=== PATIENT | female | born 1935 | race Caucasian/White ===

== ENCOUNTER 2020-03-25 10:44 | Inpatient (IN) | payer MEDICARE, OTHER, SELFPAY ==
[2020-03-25] VITALS (9 sets, daily range): BP systolic 149–228; BP diastolic 62–119; PULSE 59–83; RESP 12–18; TEMP 36.5–37.1; O2SAT 91–96; BMI 22.3
--- NOTE | 2020-03-25 10:48 | CT_ITS ---
WS: [id number] CT HEAD NONCONTRAST HISTORY: fall TECHNIQUE: Contiguous axial imaging performed through the brain in 2.5 mm imaging. Bone and soft tiss ue windows. Sagittal and coronal reformats reviewed. All CT scans at [facility] use at ast one of these dose optimization techniques: automated exposure control; mA and/or kV adjustment pe r patient size (includes targeted exams where dose is matched to clinical indication); or iterative r econstruction. DLP: 838.94 mGy.cm COMPARISON: 09/14/2016 No acute intracranial hemorrhage, midline shift or mass effect. Very mild atrophy and chronic microvascular ischemic disease. Remote infarct involving a large portio n of the LEFT external capsule. Ventricles: Normal size with no hydrocephalus. No inferior displacement of cerebellar tonsils. Paranasal sinuses: Very small air-fluid level in the LEFT maxillary sinus. Mastoid air cells: Well pneumatized. Calvarium and scalp: No calvarial fracture. There is a very large acute scalp hematoma centered over the LEFT frontal bone. Acute blood products extend over a length of 6.0 cm x 1.5 cm. The underlying b one looks to be intact. Acute hematoma extends over the LEFT orbit and globe. CT/CT head wo con* [id number] IMPRESSION: 1. No acute intracranial hemorrhage or edema. 2. Large acute LEFT frontal scalp hematoma. 3. Mild atrophy and remote LEFT external capsule infarct.
--- NOTE | 2020-03-25 10:48 | CT_ITS ---
WS: [id number] CT CERVICAL SPINE HISTORY: fall TECHNIQUE: Contiguous 2.5 mm axial imaging performed through the entire cervical spine. Sagittal and coronal reformats also performed. All CT scans at [facility] use at least one of these do se optimization techniques: automated exposure control; mA and/or kV adjustment per patient size (inc ludes targeted exams where dose is matched to clinical indication); or iterative reconstruction. DLP: 375.27 mGy.cm COMPARISON: None available. Straightening and reversal the normal cervical lordosis centered at C5-6. C4 anterolisthesis by 3 mm. Severe disc space narrowing at C5-6 and C6-7 with endplate osteophytes. Craniocervical junction is n ormally aligned. C1 and C2 are normally aligned. No acute fractures are identified. Unfused ring of C1 posteriorly normal variant. C2-C3: Central osteophyte without stenosis. C3-C4: Bilateral facet joint arthritis. Mild LEFT foraminal narrowing. C4-C5: Diffuse osteophytic ridging and facet arthritis. Mild central and bilateral foraminal narrowin g. C5-C6: Diffuse osteophytic ridging with encroachment upon the ventral thecal sac. Moderate central an d mild bilateral foraminal narrowing. C6-C7: Diffuse osteophytic ridging with mild central and bilateral foraminal narrowing. C7-T1: Normal. Soft tissues are normal. Lung apices are clear. CT/CT cervical spin wo con* [id number] IMPRESSION: 1. No acute cervical spine fracture. 2. Multilevel stenoses and facet joint arthritis. Most significant stenosis at C5-6 and C6-7.
--- NOTE | 2020-03-25 10:48 | XR_ITS ---
WS: [id number] XR hip LT 2-3V wo/w pel* [id number] REASON FOR EXAM: fall FINDINGS: Complete transverse subcapital fracture. There may be some small additional bony fragments at the inf erior margin of the fracture. No other associated pelvic fracture identified. XR/XR hip LT 2-3V wo/w pel* [id number] IMPRESSION: Proximal left femur fracture as above.
--- NOTE | 2020-03-25 10:48 | XR_ITS ---
WS: [id number] PORTABLE CHEST HISTORY: fall COMPARISON: 09/20/2016 Diffuse haziness and interstitial thickening over both lungs. Increasing consolidation adjacent to th e LEFT heart. Increasing opacification at the RIGHT diaphragm. Small RIGHT pleural effusion. Cardiac size: Mildly enlarged cardiac silhouette. Mediastinum/Aorta: Mild atherosclerosis aorta. Mediastinum is prominent but this is probably due to s upine positioning. Diffuse osteopenia. No fractures are identified radiographically. XR/XR chest 1V portable [id number] IMPRESSION: 1. Increasing consolidation at the lingula. Pneumonia versus atelectasis. 2. Atelectasis at the RIGHT lung base and probable small effusion. 3. Suspect mild interstitial edema.
--- NOTE | 2020-03-25 11:02 | ED_ITS ---
HPI - Head Injury General: Chief complaint: Head Injury Stated complaint: FALL, HEAD AND HIP INJURY Time Seen by Provider: 03/25/20 10:45 Source: patient and EMS Mode of arrival: EMS Limitations: no limitations History of Present Illness: HPI Narrative: 84-year-old female who is here by EMS after a fall. Patient states that she had tripped over her own feet and fell onto her left side. She has severe left hip pain and was unable to stand. She also struck her head and has a hematoma to her left head. She has mild neck pain. She denies pain elsewhere. She states her pain is sharp in nature and rates it a 8 out of 10. Is worse with any movement and improved with rest. Associated symptoms: Deny nausea, neck pain or vomiting Review of Systems Const: Denies: fever(s), chills, body aches or change in appetite Eyes: Denies: blurry vision or eye discomfort ENMT: Denies: throat pain or dental pain Card: Denies: chest pain Resp: Denies: dyspnea GI: Denies: abdominal pain, nausea, vomiting or diarrhea : Denies: dysuria Musc: Reports: joint pain; Denies: neck pain or back pain Skin/Breast: Denies: rash Neuro: Denies: headache(s) Psych: Denies: depression Karan/Lymph: Denies: easy bruising All/Imm: Denies: urticaria PFSH ED PFSH: Medical History (Updated 01/14/20 @ 13:10 by Noah Metcalf MD) Anticoagulant long-term use Atrial fibrillation CKD (chronic kidney disease) stage 1, GFR 90 ml/min or greater CVA (cerebral vascular accident) HTN (hypertension) Hyperlipidemia Family History Father CAD (coronary artery disease) Sister CAD (coronary artery disease) Diabetes Brother Diabetes Other Hypertension Social History Smoking and tobacco status: never smoked Physical Exam Const: COMMON NORMALS: no acute distress, patient oriented x3 and healthy appearing HENMT: COMMON NORMALS: normocephalic HEAD & SCALP: normocephalic OTHER: Hematoma to left forehead with a very small puncture wound Eye: COMMON NORMALS: Equal, round and reactive pupils present and EOMs intact bilaterally PUPIL: Yes Equal, round and reactive pupils present Neck/C-Spine: COMMON NORMALS: full ROM and supple Chest: COMMONS NORMALS: normal inspection of the chest and normal palpation of entire chest wall Resp: COMMON NORMALS: normal respiratory effort, No retractions, No use of accessory muscles and clear to auscultation bilaterally AUSCULTATION: clear to auscultation bilaterally Cardio: COMMON NORMALS: regular rate, regular rhythm and No murmurs present (Cardio) RATE: regular rate RHYTHM: regular rhythm GI: COMMON NORMALS: Normal to inspection, nondistended, normoactive bowel sounds present, Soft to palpation, non-tender and no masses PALPATION: Yes Soft to palpation Extremity: COMMON NORMALS: normal to inspection NARRATIVE EXTREMITY EXAM: tenderness over the left hip pain with any rom, distal pulses intact Neuro: COMMON NORMALS: patient oriented x3, moves all extremities and no focal motor deficits Psych: COMMON NORMALS: mental status grossly normal, Normal thought process present and cooperative THOUGHT PROCESS: Normal thought process present Skin: COMMON NORMALS: no rashes or lesions noted and no wounds GENERAL SKIN EXAM: no rashes or lesions noted Course Vital Signs: Vital signs: Vital Signs Temperature 97.7 F 03/25/20 10:56 Pulse Rate 59 L 03/25/20 13:00 Respiratory Rate 16 03/25/20 10:56 Blood Pressure 200/98 03/25/20 13:22 Pulse Oximetry 93 03/25/20 13:00 MDM - Head Injury MDM Narrative: Medical decision making narrative: Patient presents with a left hip fracture from a fall. Lab work here is normal. She does have a rather large hematoma to the left side of her head. Head CT here is otherwise negative along with C-spine. Spoke to hospitalist will admit I also spoke to the orthopedic who is consulted. Patient has been stable while here. Lab Data: Labs: Lab Results 03/25/20 03/25/20 03/25/20 Range/Units 10:35 10:35 10:35 WBC 11.1 H (4.0-10.0) 10^3/ uL RBC 4.22 (4.1-5.3) 10^6/u L Hgb 12.6 (11.5-15.3) g/dL Hct 38.7 (37.0-47.0) % MCV 91.7 (81-99) fL MCH 29.9 (28.0-34.0) pg MCHC 32.6 (30.0-36.0) g/dL RDW 12.7 (12.1-15.1) % Plt Count 270 (130-400) 10^3/c mm MPV 12.3 H (7.4-10.4) fL Neut % (Auto) 52.6 % Lymph % (Auto) 36.2 % Lipscomb % (Auto) 6.7 % Eos % (Auto) 3.4 % Baso % (Auto) 0.8 % Neut # (Auto) 5.85 (1.8-7.7) 10^3/u L Lymph # (Auto) 4.0 (0.8-4.8) 10^3/u L Lipscomb # (Auto) 0.8 (0.2-0.9) 10^3/u L Eos # (Auto) 0.4 (0.0-0.8) 10^3/u L Baso # (Auto) 0.1 (0.0-0.1) 10^3/u L Nucleated RBC % (a uto) 0 % Nucleated RBCs # 0.0 /100WBC PT 12.50 (12.1-14.9) SECO NDS INR 0.92 (0.8-1.2) Sodium 138 (136-145) mmol/L Potassium 4.0 (3.5-5.1) mmol/L Chloride 102 (98-107) mmol/L Carbon Dioxide 23 (22-29) mmol/L Anion Gap 17.0 (5-19) BUN 38 H (8-23) mg/dL Creatinine 1.4 H (0.5-0.9) mg/dL GFR Calculation Not Reportable Glucose 117 H (65-115) mg/dL Calculated Osmolal ity 296 H (285-295) mOsm/k g Calcium 9.5 (8.5-10.5) mg/dL Total Bilirubin 0.3 (0.15-1.2) mg/dL AST 28 (0-32) U/L ALT 15 (0-33) U/L Alkaline Phosphata se 70 (35-105) IU/L Total Protein 7.6 (6.6-8.7) g/dL Albumin 4.2 (3.5-5.2) g/dL Globulin 3.4 (1.3-4.6) g/dL Imaging Data^: Xray Ortho: Radiologist's impression: [address] [address] XRay Report Signed Patient: Rebecca Duke Unit #: [id number] : 1935 Age/Sex: 84 / F ADM Date: 03/25/20 Loc: ER Room/Bed: Attending Dr: Ordering Provider/Ordering MD: Rocky Ramirez MD Date of Service: 03/25/20 Procedure(s): XR hip LT 2-3V wo/w pel* [id number] Accession Number(s): [id number] Report Number: [id number] WS: [id number] XR hip LT 2-3V wo/w pel* [id number] REASON FOR EXAM: fall FINDINGS: Complete transverse subcapital fracture. There may be some small additional bony fragments at the inferior margin of the fracture. No other associated pelvic fracture identified. XR/XR hip LT 2-3V wo/w pel* [id number] IMPRESSION: Proximal left femur fracture as above. CXR: Radiologist's impression: [address] [address] XRay Report Signed Patient: Rebecca Duke Unit #: [id number] : 1935 Age/Sex: 84 / F ADM Date: 03/25/20 Loc: ER Room/Bed: Attending Dr: Ordering Provider/Ordering MD: Rocky Ramirez MD Date of Service: 03/25/20 Procedure(s): XR chest 1V portable [id number] Accession Number(s): [id number] Report Number: [id number] WS: [id number] PORTABLE CHEST HISTORY: fall COMPARISON: 09/20/2016 Diffuse haziness and interstitial thickening over both lungs. Increasing consolidation adjacent to the LEFT heart. Increasing opacification at the RIGHT diaphragm. Small RIGHT pleural effusion. Cardiac size: Mildly enlarged cardiac silhouette. Mediastinum/Aorta: Mild atherosclerosis aorta. Mediastinum is prominent but this is probably due to supine positioning. Diffuse osteopenia. No fractures are identified radiographically. XR/XR chest 1V portable [id number] IMPRESSION: 1. Increasing consolidation at the lingula. Pneumonia versus atelectasis. 2. Atelectasis at the RIGHT lung base and probable small effusion. 3. Suspect mild interstitial edema. CT Head: Radiologist's impression: [address] [place] [address] CT Scan Report Signed Patient: Rebecca Duke Unit #: [id number] : 1935 Age/Sex: 84 / F ADM Date: 03/25/20 Loc: ER Room/Bed: Attending Dr: Ordering Provider/Ordering MD: Rocky Ramirez MD Date of Service: 03/25/20 Procedure(s): CT head wo con* [id number] Accession Number(s): [id number] Report Number: [id number] WS: [id number] CT HEAD NONCONTRAST HISTORY: fall TECHNIQUE: Contiguous axial imaging performed through the brain in 2.5 mm imaging. Bone and soft tissue windows. Sagittal and coronal reformats reviewed. All CT scans at [facility] use at least one of these dose optimization techniques: automated exposure control; mA and/or kV adjustment per patient size (includes targeted exams where dose is matched to clinical indication); or iterative reconstruction. DLP: 838.94 mGy.cm COMPARISON: 09/14/2016 No acute intracranial hemorrhage, midline shift or mass effect. Very mild atrophy and chronic microvascular ischemic disease. Remote infarct involving a large portion of the LEFT external capsule. Ventricles: Normal size with no hydrocephalus. No inferior displacement of cerebellar tonsils. Paranasal sinuses: Very small air-fluid level in the LEFT maxillary sinus. Mastoid air cells: Well pneumatized. Calvarium and scalp: No calvarial fracture. There is a very large acute scalp hematoma centered over the LEFT frontal bone. Acute blood products extend over a length of 6.0 cm x 1.5 cm. The underlying bone looks to be intact. Acute hematoma extends over the LEFT orbit and globe. CT/CT head wo con* [id number] IMPRESSION: 1. No acute intracranial hemorrhage or edema. 2. Large acute LEFT frontal scalp hematoma. 3. Mild atrophy and remote LEFT external capsule infarct. Other CT: Radiologist's impression: te: 03/25/2020 1:41:08 PM Order #: [id number] Report Status: Finalized Reason: fall [facility] [address] [place] [address] CT Scan Report Signed Patient: Rebecca Duke Unit #: [id number] : 1935 Age/Sex: 84 / F ADM Date: 03/25/20 Loc: ER Room/Bed: Attending Dr: Ordering Provider/Ordering MD: Rocky Ramirez MD Date of Service: 03/25/20 Procedure(s): CT cervical spin wo con* [id number] Accession Number(s): [id number] Report Number: [id number] WS: [id number] CT CERVICAL SPINE HISTORY: fall TECHNIQUE: Contiguous 2.5 mm axial imaging performed through the entire cervical spine. Sagittal and coronal reformats also performed. All CT scans at [facility] use at least one of these dose optimization techniques: automated exposure control; mA and/or kV adjustment per patient size (includes targeted exams where dose is matched to clinical indication); or iterative reconstruction. DLP: 375.27 mGy.cm COMPARISON: None available. Straightening and reversal the normal cervical lordosis centered at C5-6. C4 anterolisthesis by 3 mm. Severe disc space narrowing at C5-6 and C6-7 with endplate osteophytes. Craniocervical junction is normally aligned. C1 and C2 are normally aligned. No acute fractures are identified. Unfused ring of C1 posteriorly normal variant. C2-C3: Central osteophyte without stenosis. C3-C4: Bilateral facet joint arthritis. Mild LEFT foraminal narrowing. C4-C5: Diffuse osteophytic ridging and facet arthritis. Mild central and bilateral foraminal narrowing. C5-C6: Diffuse osteophytic ridging with encroachment upon the ventral thecal sac. Moderate central and mild bilateral foraminal narrowing. C6-C7: Diffuse osteophytic ridging with mild central and bilateral foraminal narrowing. C7-T1: Normal. Soft tissues are normal. Lung apices are clear. CT/CT cervical spin wo con* [id number] IMPRESSION: 1. No acute cervical spine fracture. 2. Multilevel stenoses and facet joint arthritis. Most significant stenosis at C5-6 and C6-7. Discharge Plan Discharge Patient Disposition: Admitted As Inpatient Condition: Stable Referrals: Jalyn Salas MD [Primary Care Provider] - Coding Level of Care Code ED Pupil Personnel Services Director for Chg Fwd Exam Comprehensive
[2020-03-25 11:08] LABS: Basophils # 0.1 10^3/uL (0.0-0.1); Basophils % 0.8 %; Eosinophils # 0.4 10^3/uL (0.0-0.8); Eosinophils % 3.4 %; Hematocrit 38.7 % (37.0-47.0); Hemoglobin 12.6 g/dL (11.5-15.3); Lymphocytes % 36.2 %; Mean Corpuscular HGB Conc 32.6 g/dL (30.0-36.0); Mean Corpuscular Hemoglobin 29.9 pg (28.0-34.0); Mean Corpuscular Volume 91.7 fL (81-99); Mean Platelet Volume 12.3 fL (7.4-10.4); Monocytes # 0.8 10^3/uL (0.2-0.9); Monocytes % 6.7 %; Neutrophils # 5.85 10^3/uL (1.8-7.7); Neutrophils % 52.6 %; Nucleated Red Blood Cells % 0 %; Platelet Count 270 10^3/cmm (130-400); Red Blood Count 4.22 10^6/uL (4.1-5.3); Red Cell Distribution Width 12.7 % (12.1-15.1); White Blood Count 11.1 10^3/uL (4.0-10.0)
--- NOTE | 2020-03-25 11:20 | PC.NURSE ---
portable xray at bedside
[2020-03-25 11:22] LABS: Alanine Aminotransferase 15 U/L (0-33); Albumin Level 4.2 g/dL (3.5-5.2); Alkaline Phosphatase 70 IU/L (35-105); Blood Urea Nitrogen 38 mg/dL (8-23); Calcium 9.5 mg/dL (8.5-10.5); Carbon Dioxide 23 mmol/L (22-29); Chloride 102 mmol/L (98-107); Globulin 3.4 g/dL (1.3-4.6); Glucose 117 mg/dL (65-115); Osmolality Calculated 296 mOsm/kg (285-295); Sodium 138 mmol/L (136-145); Total Bilirubin 0.3 mg/dL (0.15-1.2); Total Protein 7.6 g/dL (6.6-8.7)
[2020-03-25 11:26] LABS: Aspartate Amino Transferase 28 U/L (0-32)
[2020-03-25] MEDS: morphine 4 mg/mL SDV 1 mL IVP (11:45)
[2020-03-25 12:04] LABS: INR 0.92 (0.8-1.2)
[2020-03-25] MEDS: ondansetron 2 mg/ML SDV 2 mL 4 MG IVP ×2 (15:22→17:04)
[2020-03-25] MEDS: hyDRALAzine 20 mg/mL INJ 1 mL 10 MG IVP (15:24)
--- NOTE | 2020-03-25 16:30 | PM.HP ---
Providers/Chief Complaint Admitting Physician: Omi Cheung MD Primary Care Provider: Jalyn Salas MD Chief Complaint: FALL, HEAD AND HIP INJURY History of Present Illness Rebecca Duke is a 84 year old female with past medical history of A. fib, hypertension, CVA, CKD, came in with chief complaint of left hip pain after a fall, post fall, she is complaining of severe left hip pain, unable to bear weight, she is also complaining of pain on the left forehead and mild neck. She has denied any, chest pain nausea vomiting, shortness of breath, fever,cough. History taking has been difficult as the patient is in pain right now. She was worked up in the ED for fall. Dr. Kearney has been consulted and she is due for orthopedic intervention. Review of Systems General: Reports: 10 or more systems reviewed and unremarkable except in HPI and below Const: Denies: fever(s), chills, body aches, change in appetite or diaphoresis Card: Denies: palpitations, edema, swelling of feet/ankles, dyspnea on exertion, orthopnea or leg pain with exertion Resp: Denies: dyspnea, productive cough, wheezing or pain on inspiration GI: Denies: abdominal pain, nausea, vomiting, diarrhea or constipation Medications/Allergies Home Medications Medication Instructions Recorded Confirmed Last Taken Type amiodarone 200 mg tablet 100 mg PO DAILY tab 12/18/19 03/25/20 03/25/20 History cholecalciferol (vitamin D3) 125 125 mcg PO DAILY 12/18/19 03/25/20 03/25/20 History mcg (5,000 unit) capsule levothyroxine 50 mcg tablet 50 mcg PO DAILY 12/18/19 03/25/20 03/25/20 History metoprolol tartrate 50 mg tablet 50 mg PO BID 12/18/19 03/25/20 03/25/20 History aspirin 325 mg PO DAILY 03/25/20 03/25/20 03/25/20 History lisinopril 20 mg PO DAILY 03/25/20 03/25/20 03/25/20 History Allergies Allergy/AdvReac Type Severity Reaction Status Date / Time Nitrofuran Analogues Allergy Unknown Unknown Unverified 12/18/19 10:41 PFSH Acute PFSH: Medical History Anticoagulant long-term use Atrial fibrillation CKD (chronic kidney disease) stage 1, GFR 90 ml/min or greater CVA (cerebral vascular accident) HTN (hypertension) Hyperlipidemia Family History Father CAD (coronary artery disease) Sister CAD (coronary artery disease) Diabetes Brother Diabetes Other Hypertension Social History Smoking and tobacco status: never smoked Vitals/I&O/Wt Last Vital Signs Temp 97.7 F 03/25/20 10:56 Pulse 73 03/25/20 16:01 Resp 16 03/25/20 15:20 BP 150/76 03/25/20 16:01 Pulse Ox 96 03/25/20 16:01 Weight last 48 hrs Weight 55.338 kg Physical Exam Const: COMMON NORMALS: patient oriented x3 Eye: OTHER: Left eyelid is swollen and red with difficulty opening the eyelids. Dried blood is noted at both nostril. Chest: COMMONS NORMALS: normal inspection of the chest and normal palpation of entire chest wall CHEST: Yes Symmetrical chest wall rise Resp: COMMON NORMALS: normal respiratory effort, No retractions, No use of accessory muscles and clear to auscultation bilaterally EFFORT & INSPECTION: Yes symmetric chest movement AUSCULTATION: clear to auscultation bilaterally Cardio: COMMON NORMALS: regular rate, regular rhythm, S1 normal heart sound present, S2 normal heart sound present, No gallops present (Cardio), No murmurs present (Cardio), No rub (Cardio) and Peripheral pulses 2+ throughout RATE: regular rate RHYTHM: regular rhythm HEART SOUNDS: S1 normal heart sound present and S2 normal heart sound present PERIPHERAL PULSES: Peripheral pulses 2+ throughout GI: COMMON NORMALS: Normal to inspection, nondistended, normoactive bowel sounds present, Soft to palpation, non-tender, No hepatosplenomegaly present and no masses AUSCULTATION: Yes normoactive bowel sounds PALPATION: Yes Soft to palpation and Yes No hepatosplenomegaly present RECTAL EXAM: deferred Extremity: OTHER: Inability to move left lower extremity due to severe pain. Dorsalis pedis pulse 2+ bilaterally equal,No lower extremity edema.Left lower extremity range of motion limited due to pain. Neuro: COMMON NORMALS: patient oriented x3 Urinary Catheter Management^: Morales: Cath Placed During This Visit: yes Reason for Continuing Indwelling Catheter: Required Immobilization for Trauma or Surgery or Anesthesia Urinary Catheter Date of Insertion: 03/25/20 Urinary Catheter Time of Insertion: 15:15 Data : 03/25/20 10:35 03/25/20 10:35 CT Head: I personally reviewed and interpreted this imaging study as follows: My impression: No acute intracranial pathology. Age-appropriate chronic changes.Large acute LEFT frontal scalp hematoma Radiologist's impression: 1. No acute intracranial hemorrhage or edema. 2. Large acute LEFT frontal scalp hematoma. 3. Mild atrophy and remote LEFT external capsule infarct Other data: CT CERVICAL SPINE: 1. No acute cervical spine fracture. 2. Multilevel stenoses and facet joint arthritis. Most significant stenosis at C5-6 and C6-7 A&P Assessment and plan (1) Hip fracture: XR hip LT 2-3V : Complete transverse subcapital fracture.Proximal left femur fracture. Continue with pain with medication. Continue IV Zofran Due for orthopedic intervention. Appreciate orthopedic rec. Status: Acute (2) Leukocytosis: Likely secondary to dehydration. X-ray chest: No acute infiltrate. Will order, urinalysis, lactic acid. Will repeat CBC post hydration. We will continue to hold antibiotics for now. Status: Acute (3) TERESA (acute kidney injury): TERESA versus TERESA on CKD: Likely secondary to dehydration. Current serum creatinine is 1.4. Baseline is currently not known. Will monitor serum creatinine. We will continue with hydration. Avoid nephrotoxic. Status: Acute (4) HTN (hypertension): Currently blood pressure is high likely 2/2 severe pain. Will ensure appropriate pain control Will initiate home medication. Status: Acute (5) CVA (cerebral vascular accident): Continue with aspirin and statin Status: Acute (6) Atrial fibrillation: Currently rate controlled. We will continue with home dose of amiodarone 100 mg oral daily. Status: Acute (7) Hyperlipidemia: No acute intervention. Will order lipid profile. Status: Acute Additional A&P Information CODE STATUS: Full code DVT PPX: As per orthopedic surgeon. Attestations Medical Necessity Statement*: Patient needs more than 2 midnight hospital stay for hip fracture. Coding Level of Care Code Acute Senior Mechanical Technician for [facility] Fwd Exam Detailed Diagnoses Hip fracture S72.009A Leukocytosis D72.829 TERESA (acute kidney injury) N17.9 HTN (hypertension) I10 CVA (cerebral vascular accident) I63.9 Atrial fibrillation I48.91 Hyperlipidemia E78.5
[2020-03-25] MEDS: sodium chloride 0.9% 1,000 ML 75 ML IV (16:56)
[2020-03-25] MEDS: metoprolol tartrate 50 mg Tablet PO (16:56)
--- NOTE | 2020-03-25 17:09 | P.CONIM_ITS ---
Providers/Reason For Consult Consulting Physican/Specialty*: Dr. Shirley Marti - Orthopedics Reason for Consult*: Left subcapital hip fracture Requesting Physcian: Dr. Rocky Ramirez Attending Physician: Omi Cheung MD Primary Care Provider: Jalyn Salas MD History of Present Illness History of Present Illness Rebecca Duke is a 84 year old female who presented to the emergency department after a fall onto her left hip. She had complaints of severe left hip pain and inability to weight-bear weight. She also had mild neck pain as well as forehead pain. She denied any reason for her fall other than tripping over her own feet. She denied any precursor to the fall such as dizziness, shortness of breath, nausea or vomiting. She was worked up in the emergency department with regards to this and admitted to the hospitalist service. Review of Systems General: Reports: ROS unobtainable due to mental status Meds/Allergies Home Medications and Allergies Home Medications Medication Instructions Recorded Confirmed Last Taken Type amiodarone 200 mg tablet 100 mg PO DAILY tab 12/18/19 03/25/20 03/25/20 History cholecalciferol (vitamin D3) 125 125 mcg PO DAILY 12/18/19 03/25/20 03/25/20 History mcg (5,000 unit) capsule levothyroxine 50 mcg tablet 50 mcg PO DAILY 12/18/19 03/25/20 03/25/20 History metoprolol tartrate 50 mg tablet 50 mg PO BID 12/18/19 03/25/20 03/25/20 History aspirin 325 mg PO DAILY 03/25/20 03/25/20 03/25/20 History lisinopril 20 mg PO DAILY 03/25/20 03/25/20 03/25/20 History Allergies Allergy/AdvReac Type Severity Reaction Status Date / Time Nitrofuran Analogues Allergy Unknown Unknown Verified 03/26/20 13:05 Current Medications Current Medications Generic Name Dose Route Start Last Admin Trade Name Freq PRN Reason Stop Dose Admin Sodium Chloride 1,000 mls @ 75 mls/hr 03/25/20 16:30 03/25/20 16:56 Sodium Chloride 0.9% IV 75 mls/hr .[id number] BLAKE Administration Metoprolol Tartrate 50 mg 03/25/20 18:00 03/25/20 16:56 Lopressor PO 50 mg BID BLAKE Administration Ondansetron HCl 4 mg 03/25/20 16:29 03/25/20 17:04 Zofran IVP 4 mg Q8H PRN Administration vomiting, or N/V if npo PFSH Acute PFSH: Medical History Anticoagulant long-term use Atrial fibrillation CKD (chronic kidney disease) stage 1, GFR 90 ml/min or greater CVA (cerebral vascular accident) HTN (hypertension) Hyperlipidemia Family History Father CAD (coronary artery disease) Sister CAD (coronary artery disease) Diabetes Brother Diabetes Other Hypertension Social History Smoking and tobacco status: never smoked Vitals/I&O/Wt Last Vital Signs Temp 97.9 F 03/25/20 16:29 Pulse 83 03/25/20 16:29 Resp 18 03/25/20 16:29 BP 198/62 03/25/20 16:29 Pulse Ox 91 03/25/20 16:29 Weight last 48 hrs Weight 122 lb Physical Exam 2 Const: COMMON NORMALS: no acute distress, average body habitus, patient oriented x3 and alert GENERAL APPEARANCE: cooperative and comfortable ORIENTATION/CONSCIOUSNESS: Yes awake HENMT: COMMON NORMALS: normocephalic; head/scalp not atraumatic HEAD & SCALP: normocephalic; not atraumatic FACE & SINUS: other (Patient has ecchymosis about the left eye secondary to her fall.) Chest: COMMONS NORMALS: normal inspection of the chest Resp: COMMON NORMALS: normal respiratory effort EFFORT & INSPECTION: Yes able to speak in complete sentences and Yes symmetric chest movement Extremity: LEFT LOWER EXTREMITY: Yes hip joint Left hip: Yes inspection (There is no significant swelling or bruising.), Yes palpation (There is tenderness to palpation.), Yes ROM (Not evaluated secondary to fracture.) and Yes neurovascular exam (Intact.) Neuro: COMMON NORMALS: patient oriented x3 SENSORIUM/ORIENTATION: Yes alert Psych: COMMON NORMALS: mental status grossly normal APPEARANCE: Yes grossly normal ATTITUDE: Yes calm and Yes engaged ATTENTION/CONCENTRATION: Yes attention grossly intact Skin: COMMON NORMALS: no rashes or lesions noted GENERAL SKIN EXAM: no rashes or lesions noted Urinary Catheter Management^: Morales: Cath Placed During This Visit: yes Reason for Continuing Indwelling Catheter: Required Immobilization for Trauma or Surgery or Anesthesia Urinary Catheter Date of Insertion: 03/25/20 Urinary Catheter Time of Insertion: 15:15 Data Imaging^: Xray Ortho: I personally reviewed and interpreted this imaging study as follows: My impression: X-rays are reviewed from the emergency department. There are 2 views of the patient's left hip. There is a left displaced subcapital hip fracture. A&P Assessment and plan (1) Subcapital fracture of left hip: I have discussed the patient with the emergency room physician as well as the floor nurse. I have also reviewed the x-rays. At this time, the patient will require operative intervention. Laboratory studies are still pending, and the patient has current elevated blood pressure which is being addressed by the hospitalist team. The patient will require a bipolar hip arthroplasty. Once her blood pressure is stabilized, I will see her tomorrow and discuss surgical options with her. Currently, she is scheduled for 1300. She will have a repeat INR in the morning as she is on Coumadin. At the time of her admission labs, there was no evidence for need for reversal. Status: Acute Qualifiers: Encounter type: initial encounter Fracture type: closed Qualified Code(s): S72.012A - Unspecified intracapsular fracture of left femur, initial encounter for closed fracture Consult Attestations Medical Necessity Statement: Patient requires inpatient hospitalization for evaluation and surgical treatment of hip fracture. Coding Level of Care Code Acute Maintenance Assistant for [facility] Diagnoses Subcapital fracture of left hip S72.012A Encounter type: initial encounter Fracture type: closed
[2020-03-25 19:55] LABS: Urine Appearance Clear (CLEAR); Urine Color Yellow (Yellow)
[2020-03-25 19:56] LABS: Add Urine Microscopic? YES; Bilirubin Urine Neg (Negative); Blood Urine Neg (Negative); Glucose Urine UA Norm (Normal); Ketones Urine 1+ (Negative); Leukocyte Esterase Urine Negative (Negative); Nitrate Urine Positive (Negative); Protein Urine 1+ (Negative); Specific Gravity, Urine 1.015 (1.005-1.030); Urobilinogen Urine Norm (Negative); pH Urine 5 (5-7)
[2020-03-25 20:09] LABS: Add Urine Culture? Yes; Bacteria Urine 4+ /hpf; RBC Urine 0-4 /hpf (0-2); Squamous Epithelial Cell Urine 0-4 /hpf (0-5); WBC Urine 15-25 /hpf (0-5)
[2020-03-25] MEDS: hyDRALAzine 50 mg Tablet PO (21:35)
[2020-03-25] MEDS: cefTRIAXone 1,000 MG in sodium chloride 0.9% (plus) 50 ML 100 MG IV (21:36)
[2020-03-25] MEDS: HYDROcodone-acetaminophen 5-325 mg Tablet 1 TAB PO (23:26)
[2020-03-26] VITALS (20 sets, daily range): BP systolic 135–192; BP diastolic 59–76; PULSE 56–83; RESP 12–20; TEMP 36–37.2; O2SAT 91–100
[2020-03-26] MEDS: morphine 4 mg/mL SDV 1 mL 2 MG IVP ×2 (00:34→07:48)
[2020-03-26 02:38] LABS: Basophils % 0.2 %; Eosinophils % 0.1 %; Hematocrit 33.2 % (37.0-47.0); Hemoglobin 10.6 g/dL (11.5-15.3); Lymphocytes # 1.3 10^3/uL (0.8-4.8); Mean Corpuscular HGB Conc 31.9 g/dL (30.0-36.0); Mean Corpuscular Hemoglobin 29.7 pg (28.0-34.0); Mean Platelet Volume 11.9 fL (7.4-10.4); Monocytes # 0.7 10^3/uL (0.2-0.9); Neutrophils # 9.36 10^3/uL (1.8-7.7); Neutrophils % 82.3 %; Nucleated Red Blood Cells % 0 %; Platelet Count 191 10^3/cmm (130-400); Red Blood Count 3.57 10^6/uL (4.1-5.3); Red Cell Distribution Width 12.8 % (12.1-15.1); White Blood Count 11.4 10^3/uL (4.0-10.0)
[2020-03-26 02:46] LABS: Anion Gap 17.1 (5-19); Blood Urea Nitrogen 35 mg/dL (8-23); Calcium 9.2 mg/dL (8.5-10.5); Carbon Dioxide 23 mmol/L (22-29); Chloride 101 mmol/L (98-107); Glucose 139 mg/dL (65-115); Magnesium 1.3 mg/dL (1.7-2.3); Osmolality Calculated 294 mOsm/kg (285-295); Potassium 4.1 mmol/L (3.5-5.1); Sodium 137 mmol/L (136-145)
[2020-03-26 02:49] LABS: INR 1.07 (0.8-1.2); Partial Thromboplastin Time 24.6 SECONDS (23.9-36.7)
[2020-03-26 02:57] LABS: Thyroid Stimulating Hormone 1.74 uIU/mL (0.27-4.20)
[2020-03-26] MEDS: hyDRALAzine 50 mg Tablet PO ×2 (04:16→20:04)
[2020-03-26] MEDS: sodium chloride 0.9% 1,000 ML 75 ML IV ×2 (05:13→18:45)
[2020-03-26] MEDS: HYDROcodone-acetaminophen 5-325 mg Tablet 1 TAB PO ×2 (09:29→18:05)
[2020-03-26] MEDS: levothyroxine 50 mcg Tablet PO (09:30)
[2020-03-26] MEDS: metoprolol tartrate 50 mg Tablet PO ×2 (09:30→18:01)
--- NOTE | 2020-03-26 11:15 | PC.CHAP ---
Pastoral Care Encounter/Spiritual Assessment Type of Contact [] Declined cullet trucker visit [] Patient/Family/Request visit [] Outpatient visit [] Follow-up visit [] Physician referral [] Code/Alert [x] Routine visit [] Staff referral [] Actively dying [] Patient sleeping [] Family support [] [] Out of room [] Palliative care [] [x] Receiving care in room [] Pre-surgical visit [] Trauma [] Long length of stay [] ICU visit [] Other: Relational/Emotional Strength [] Patient feels connected with others/family/visitors/staff [x] Distress [] Loneliness/isolation [] Abandonment Spirituality of Patient [] Person of Avelina [] Attends Methodist of their Avelina [] Believes in Prayer [] Reads Bible or Amish materials [] There are Spiritual issues to be addressed Senior Program Planner Interventions [] Prayer [] Active listening [] Non-anxious presence [] Spiritual/emotional support [] Crisis/trauma care [] Spiritual counseling [] Bereavement support [] Provided bereavement packet [] Provided Bible/devotional materials [] Provided toy/stuffed animal, coloring book to patient or family member [] Provided Communion [] Anointing/[place] [] Salvation [] Completed spiritual assessment [] Other: Impact on Illness or Injury [] Angry [x] Fearful [] Anxious [] Often cries [] Exhaustion [x] Unable to work [] Unable to attend taoist [] Unable to walk/stand [] Unable to read [x] Unable to drive [] Unable to eat/drink [] Unable to sleep [] Unable to be with family [] Patient intubated [] Other: Summary going into surgery on hip this afternoon, negative attitude, not sure when she will get to home Time spent with patient 10 mins
--- NOTE | 2020-03-26 12:37 | PC.NURSE ---
surgery Pt was taken down to surgery in her hospital bed.
[2020-03-26] MEDS: CELEcoxib 200 mg Capsule 400 MG PO (13:03)
--- NOTE | 2020-03-26 13:12 | ANES.PREANE2 ---
Pre-Anesthetic Assessment Pre-Anesthetic Assessment: Height/Weight: Height 1.57 m Weight 55.338 kg Temp Pulse Resp BP Pulse Ox 97.3 F L 65 18 165/71 91 03/26/20 12:57 03/26/20 12:57 03/26/20 12:57 03/26/20 12:57 03/26/20 12:57 Preop Diagnosis: Subcapital displaced hip fracture Proposed Procedure: Operation Date: 03/26/20 13:20 Proposed Procedures p Bipolar Hip Arthroscopy(Left) - Shirley Marti MD Familial anesthetic complications: None Was Beta Darlene taken within 24 hours: Yes Last intake: Intake Last Liquid Date 03/26/20 Last Liquid Time 00:00 Last Solid Date 03/25/20 Last Solid Time 15:00 Social: Social History: No alcohol and No tobacco Exam: Pre-Anes Outpt Exam: alert, oriented x 3, clear to auscultation bilaterally and regular rate & rhythm Airway: Cervical ROM: WNL MP: 3 Dentition: False Pulmonary: Pulmonary: None reported CV/HEM: CV/HEM: Afib (no longer on warfarin d/t frequent falls) and HTN Comments: echo 2017 - EF 64%, grade I diastolic dysfunction, Mild pulm HTN : : Chronic renal Insufficiency Metabolic: Metabolic: Hyperlipidemia Musc/skel: Comments: facial hematoma Neuropsych: Neuropsych: 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)) Comments: negative head CT for acute bleed Anesthetic Plan: ASA status: 3 Anesthesia: General Risk of > 500 ml blood loss (7ml/kg in children): No Meds/Allergies Current Medications: Current Medications Generic Name Dose Route Start Last Admin Trade Name Freq PRN Reason Stop Dose Admin Hydrocodone Bitart /Acetaminophen 1 tab 03/25/20 16:29 03/26/20 09:29 [place] 5-325 Mg PO 1 tab Q4H PRN Administration MODERATE TO SEVER E PAIN Amiodarone HCl 100 mg 03/26/20 09:00 03/26/20 09:32 Cordarone PO Not Given DAILY BLAKE Hydralazine HCl 50 mg 03/25/20 20:00 03/26/20 12:38 Apresoline PO Not Given Q8H BLAKE Sodium Chloride 1,000 mls @ 75 ml s/hr 03/25/20 16:30 03/26/20 05:13 Sodium Chloride 0.9% IV 75 mls/hr .[id number] BLAKE Administration Acetaminophen 1,000 mg in 100 m ls @ 400 mls/hr 03/26/20 13:02 03/26/20 13:03 Ofirmev IV 03/26/20 13:16 400 mls/hr ONCE ONE Administration Ceftriaxone Sodium 1,000 mg/ 50 mls @ 100 mls/ hr 03/25/20 20:15 03/25/20 21:36 Sodium Chloride IV 100 mls/hr Q24H BLAKE Administration Protocol Levothyroxine Sodi um 50 mcg 03/26/20 09:00 03/26/20 09:30 Synthroid PO 50 mcg DAILY BLAKE Administration Metoprolol Tartrat e 50 mg 03/25/20 18:00 03/26/20 09:30 Lopressor PO 50 mg BID BLAKE Administration Morphine Sulfate 2 mg 03/25/20 16:29 03/26/20 07:48 Morphine IVP 2 mg Q4H PRN Administration SEVERE PAIN Ondansetron HCl 4 mg 03/25/20 16:29 03/25/20 17:04 Zofran IVP 4 mg Q8H PRN Administration vomiting, or N/V if npo Vitamin D 5,000 unit 03/26/20 09:00 03/26/20 09:32 Vitamin D3 PO Not Given DAILY BLAKE PFSH Anesthesia PFSH: Medical History Anticoagulant long-term use Atrial fibrillation CKD (chronic kidney disease) stage 1, GFR 90 ml/min or greater CVA (cerebral vascular accident) HTN (hypertension) Hyperlipidemia Family History Father CAD (coronary artery disease) Sister CAD (coronary artery disease) Diabetes Brother Diabetes Other Hypertension Social History Smoking and tobacco status: never smoked Data Anesthesia CBC & Chem 7: 03/26/20 02:10 03/26/20 02:10 Other Labs: Laboratory Results - last 48 hr 03/25/20 03/25/20 03/25/20 10:35 10:35 10:35 WBC 11.1 H RBC 4.22 Hgb 12.6 Hct 38.7 MCV 91.7 MCH 29.9 MCHC 32.6 RDW 12.7 Plt Count 270 MPV 12.3 H Neut % (Auto) 52.6 Lymph % (Auto) 36.2 Sunflower % (Auto) 6.7 Eos % (Auto) 3.4 Baso % (Auto) 0.8 Neut # (Auto) 5.85 Lymph # (Auto) 4.0 Sunflower # (Auto) 0.8 Eos # (Auto) 0.4 Baso # (Auto) 0.1 Nucleated RBC % (auto) 0 Nucleated RBCs # 0.0 PT 12.50 INR 0.92 APTT Sodium 138 Potassium 4.0 Chloride 102 Carbon Dioxide 23 Anion Gap 17.0 BUN 38 H Creatinine 1.4 H GFR Calculation Not Reportable Glucose 117 H Calculated Osmolality 296 H Calcium 9.5 Magnesium Total Bilirubin 0.3 AST 28 ALT 15 Alkaline Phosphatase 70 Total Protein 7.6 Albumin 4.2 Globulin 3.4 TSH Urine Color Urine Appearance Urine pH Ur Specific [place] Urine Protein Urine Glucose (UA) Urine Ketones Urine Blood Urine Nitrate Urine Bilirubin Urine Urobilinogen Ur Leukocyte Esterase Urine RBC Urine WBC Ur Squamous Epith Cells Amorphous Sediment Urine Bacteria 03/25/20 03/26/20 03/26/20 19:00 02:10 02:10 WBC 11.4 H RBC 3.57 L Hgb 10.6 L Hct 33.2 L MCV 93.0 MCH 29.7 MCHC 31.9 RDW 12.8 Plt Count 191 MPV 11.9 H Neut % (Auto) 82.3 Lymph % (Auto) 11.0 Sunflower % (Auto) 6.0 Eos % (Auto) 0.1 Baso % (Auto) 0.2 Neut # (Auto) 9.36 H Lymph # (Auto) 1.3 Sunflower # (Auto) 0.7 Eos # (Auto) 0.0 Baso # (Auto) 0.0 Nucleated RBC % (auto) 0 Nucleated RBCs # 0.0 PT 14.10 INR 1.07 APTT 24.6 Sodium Potassium Chloride Carbon Dioxide Anion Gap BUN Creatinine GFR Calculation Glucose Calculated Osmolality Calcium Magnesium Total Bilirubin AST ALT Alkaline Phosphatase Total Protein Albumin Globulin TSH Urine Color Yellow Urine Appearance Clear Urine pH 5 Ur Specific [place] 1.015 Urine Protein 1+ H Urine Glucose (UA) Norm Urine Ketones 1+ H Urine Blood Neg Urine Nitrate Positive H Urine Bilirubin Neg Urine Urobilinogen Norm Ur Leukocyte Esterase Negative Urine RBC 0-4 H Urine WBC 15-25 H Ur Squamous Epith Cells 0-4 H Amorphous Sediment Not Reportable Urine Bacteria 4+ H 03/26/20 03/26/20 02:10 02:10 WBC RBC Hgb Hct MCV MCH MCHC RDW Plt Count MPV Neut % (Auto) Lymph % (Auto) Sunflower % (Auto) Eos % (Auto) Baso % (Auto) Neut # (Auto) Lymph # (Auto) Sunflower # (Auto) Eos # (Auto) Baso # (Auto) Nucleated RBC % (auto) Nucleated RBCs # PT INR APTT Sodium 137 Potassium 4.1 Chloride 101 Carbon Dioxide 23 Anion Gap 17.1 BUN 35 H Creatinine 1.5 H GFR Calculation Not Reportable Glucose 139 H Calculated Osmolality 294 Calcium 9.2 Magnesium 1.3 L Total Bilirubin AST ALT Alkaline Phosphatase Total Protein Albumin Globulin TSH 1.74 Urine Color Urine Appearance Urine pH Ur Specific [place] [employer] Urine Protein Urine Glucose (UA) Urine Ketones Urine Blood Urine Nitrate Urine Bilirubin Urine Urobilinogen Ur Leukocyte Esterase Urine RBC Urine WBC Ur Squamous Epith Cells Amorphous Sediment Urine Bacteria Cardiac Studies: No Data to Display
[2020-03-26] MEDS: vancomycin 1,000 MG in sodium chloride 0.9% 250 ML 250 MG IV (13:39)
[2020-03-26] MEDS: vancomycin 1,000 MG SDV 1000 MG XX (14:30)
[2020-03-26] MEDS: ceFAZolin 1,000 mg SDV 1000 MG IRRIGATION (14:31)
--- NOTE | 2020-03-26 15:40 | XR_ITS ---
WS: [id number] XR pelvis 1-2V* [id number] REASON FOR EXAM: Status post left bipolar hip arthroplasty FINDINGS: Total left hip arthroplasty. The complements of the arthroplasty are properly positioned and aligned. No focal bony abnormality. XR/XR pelvis 1-2V* [id number] IMPRESSION: Properly positioned total left hip arthroplasty.
--- NOTE | 2020-03-26 15:45 | PM.OP ---
Operative Report Date of procedure: March 26, 2020 Pre-op Diagnosis: Subcapital displaced left hip fracture Post-op diagnosis: same Post-op Findings: Displaced left subcapital hip fracture Procedure Done: Bipolar hip arthroplasty utilizing the following components: The [place] Accolade II size 5 x 127 degree neck angle hip stem with a size 28 mm -4 femoral head and a 44 mm outer diameter by 28 mm inner diameter universal bipolar head component Specimens removed/disposition: Femoral head, disposed of Pathology: none sent Surgeon: Shirley Marti Healthcare Management: [facility] OR technicians Anesthesia: General (Intubated, ASA 3) Estimated blood loss (mL): 100 IV fluids (mL): 800 Urine output (mL): 300 Complications: None Condition: stable Disposition: PACU (Then return to floor for postoperative rehabilitation) Brief History: This 84-year-old woman was in her usual state of health when she fell suffering the above injury. She presented to the emergency department unable to ambulate. Upon evaluation, she was found to have a displaced left subcapital hip fracture. She was admitted to the medical service for optimization and scheduled for the above procedure. Procedure: The patient was brought to the operating theater, and after undergoing adequate general anesthesia, intubated, ASA 3, was transferred to the operating room table. The patient was placed in the full lateral position and held in place with the pegboard. Patient's left lower extremity was draped free and was subsequently prepped and further draped free. A surgical pause was performed prior to commencement of the surgical procedure. During the surgical pause, we confirmed the site and side of surgery as well as availability of equipment. Additionally, we confirmed preoperative surgical markings. X-rays are also reviewed during this time. The patient had vancomycin 1 g prophylactically preoperatively. Following the surgical pause, an incision was made centering over the greater trochanter continuing proximally and distally as necessary to allow access to the hip joint. Dissection continues through skin and soft tissue using scalpel. Incision was obtained using electrocautery. Tensor fascia [place] was identified and incised longitudinally. Sciatic nerve was identified and protected throughout the surgical procedure. A [place]arn[place] U retractor was placed with care being taken to protect the sciatic nerve during placement. The hip was internally rotated. Piriformis muscle was then identified, tagged, and subsequently incised from the posterior aspect of the hip joint. The remaining short external rotators were also incised. These were then elevated off the capsule and the capsule was entered in a T-type fashion. Each side of the capsule was then tagged. The proximal femur was brought into an appropriate position and the femoral neck osteotomy was accomplished. This was in appropriate position for placement of the prosthetic component. Femoral head was then removed from the acetabulum utilizing a corkscrew. It was subsequently measured. The appropriate size trial was chosen. This was a size 44 mm. A 45 mm was also trialed but seemed to large. Therefore size 44 was the chosen size for final implantation. Femoral wind energy mechanic was then placed and attention was directed to the proximal femur. Initially, the proximal femur was addressed with a box chisel, and this was followed by a canal finder and subsequently broaches. The hip was broached to a size 5 which was noted to fit nicely and have excellent fit and fill. Therefore this was to be the chosen component. Trial reduction was accomplished with a 44 mm universal head bipolar component and a -4 mm offset by 28 mm femoral head. With this, the above-noted stabilities were accomplished. This was felt to be appropriate and therefore trial components were removed and the hip was irrigated. Acetabulum was evaluated for any loose bodies or other soft tissues requiring resection. We then prepared for implantation. The size 5 Accolade II femoral stem with a 127 degree neck angle was impacted into position. This was placed without difficulty. Onto this was placed the construct of the 44 mm outer diameter universal head bipolar component with a 28 mm inner diameter, and the 28 mm diameter -4 mm neck offset femoral head. This was placed onto the trunnion of the femoral component. It was impacted into position and pulled upon to assure that there was no dissociation. Once again, the hip was irrigated and suctioned dry and was reduced. We then irrigated the hip further with 20 mL of Betadine mixed into 500 mL of normal saline. This was allowed to remain in the wound for approximately 3 minutes. It was then suctioned dry and irrigated with normal saline. This was suctioned dry again and closure was accomplished with 0 Vicryl in the capsular tissues followed by reattachment of the piriformis with 0 Vicryl. Additionally, the tensor was closed with 0 Vicryl in an interrupted fashion. Subcutaneous tissues were closed with 2-0 Monocryl. Skin was closed with 3-0 Monocryl. This was followed by Exofin and Steri-Strips. A sterile dressing was placed consisting of OpSite. The patient was returned the Recovery Room in satisfactory condition. There were no complications. The patient will be discharged to the floor for postoperative rehabilitation and pain management. Associated Problem List Diagnoses (1) Subcapital fracture of left hip: Qualifiers: Encounter type: initial encounter Fracture type: closed Qualified Code(s): S72.012A - Unspecified intracapsular fracture of left femur, initial encounter for closed fracture
--- NOTE | 2020-03-26 16:00 | SUR.PHASEI ---
PT AWAKES EASILY, DENIES PAIN AND NAUSEA LT HIP DRESSING D/I PT WITH GOOD RESP EFFORT ON 3LNC X RAYS DONE AT BEDISIDE DR GATES AT BEDSIDE OK WITH X RAY, FAMILY ,HAIDER EATON CALLED BY DR GATES WITH NO ANSWER , MESSAGE LEFT. REPORT CALLED TO FLOOR.
--- NOTE | 2020-03-26 17:23 | PM.PACU ---
PACU note PACU note: Patient is arousable, but easily falls back to sleep. She was placed on BiPAP and weaned to simple mask. However, she could not maintain her SPO2 on nasal cannula. An ABG showed her retaining Co2 at 77 mmhg while on mask/canula, but her baseline pCO2 is unknown. She was admitted and placed on bipap on floor with continuous pulse ox. The patient received no perioperative narcotics. Post-Anesthesia Exam: somnolent, arousable Disposition: admitted
[2020-03-26] MEDS: iron polysaccharide complex 150 mg Capsule PO (18:01)
[2020-03-26] MEDS: mupirocin oint 22 gm 1 APPLIC NASAL (18:01)
[2020-03-26] MEDS: sennosides-docusate Tablet 2 TAB PO (18:01)
[2020-03-26] MEDS: calcium carbonate 500 mg Chew Tablet 1000 MG PO (18:01)
[2020-03-26] MEDS: chlorhexidine gluconate 0.12% Btl 473 mL 30 ML MUCOUS MEM ×2 (18:01→20:11)
--- NOTE | 2020-03-26 19:44 | P.PN_ITS ---
Subjective Subjective: Interval history: When I examined her in the morning, she was alert oriented *3. Was not complaining of much pain. Status post Bipolar hip arthroplasty done today. Vitals/I&O/Wt Last Vital Signs Temp 97.5 F L 03/26/20 19:20 Pulse 62 03/26/20 19:20 Resp 17 03/26/20 19:20 BP 161/66 03/26/20 19:20 Pulse Ox 95 03/26/20 19:20 03/26/20 03/26/20 03/26/20 06:59 14:59 22:59 Intake Total 921.25 / 1041.25 110 / 110 1890 / 2000 Output Total 150 / 750 725 / 725 Balance 771.25 / 291.25 110 / 110 1165 / 1275 Weight last 48 hrs Weight 55.338 kg Physical Exam Narrative: EXAM NARRATIVE: Const COMMON NORMALS: patient oriented x3 Eye OTHER: Left eyelid is swollen and red with difficulty opening the eyelids. Dried blood is noted at both nostril. Chest COMMONS NORMALS: normal inspection of the chest and normal palpation of entire chest wall CHEST: Yes Symmetrical chest wall rise Resp COMMON NORMALS: normal respiratory effort, No retractions, No use of accessory muscles and clear to auscultation bilaterally EFFORT & INSPECTION: Yes symmetric chest movement AUSCULTATION: clear to auscultation bilaterally Cardio COMMON NORMALS: regular rate, regular rhythm, S1 normal heart sound present, S2 normal heart sound present, No gallops present (Cardio), No murmurs present (Cardio), No rub (Cardio) and Peripheral pulses 2+ throughout RATE: regular rate RHYTHM: regular rhythm HEART SOUNDS: S1 normal heart sound present and S2 normal heart sound present PERIPHERAL PULSES: Peripheral pulses 2+ throughout GI COMMON NORMALS: Normal to inspection, nondistended, normoactive bowel sounds present, Soft to palpation, non-tender, No hepatosplenomegaly present and no masses AUSCULTATION: Yes normoactive bowel sounds PALPATION: Yes Soft to palpation and Yes No hepatosplenomegaly present RECTAL EXAM: deferred Extremity OTHER: Inability to move left lower extremity due to severe pain. Dorsalis pedis pulse 2+ bilaterally equal,No lower extremity edema.Left lower extremity range of motion limited due to pain. Neuro COMMON NORMALS: patient oriented x3 Urinary Catheter Management^: Morales: Cath Placed During This Visit: yes Reason for Continuing Indwelling Catheter: Required Immobilization for Trauma or Surgery or Anesthesia Urinary Catheter Date of Insertion: 03/25/20 Urinary Catheter Time of Insertion: 15:15 Data : 03/26/20 02:10 03/26/20 02:10 A&P Assessment and plan (1) Hip fracture: XR hip LT 2-3V : Complete transverse subcapital fracture.Proximal left femur fracture. Continue with pain with medication. Continue IV Zofran. 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 Status: Acute (2) UTI (urinary tract infection): Continue ceftriaxone 1 g IV daily. Status: Acute (3) TERESA (acute kidney injury): TERESA versus TERESA on CKD: Likely secondary to dehydration. Current serum creatinine is 1.4. Baseline is currently not known. Will monitor serum creatinine. We will continue with hydration. Avoid nephrotoxic. Status: Acute (4) HTN (hypertension): Currently blood pressure is high likely 2/2 severe pain. Will ensure appropriate pain control Will initiate home medication. Status: Acute (5) CVA (cerebral vascular accident): Continue with aspirin and statin Status: Acute (6) Atrial fibrillation: Currently rate controlled. We will continue with home dose of amiodarone 100 mg oral daily. Status: Acute (7) Hyperlipidemia: No acute intervention. Will order lipid profile. Status: Acute Additional A&P Information CODE STATUS: Full code DVT PPX: As per orthopedic surgeon. Attestations Medical Necessity Statement*: Patient needs to be in hospital for management of left hip fracture. Coding Level of Care Code Acute Statistical Technician for [facility] Fwd Diagnoses Hip fracture S72.009A UTI (urinary tract infection) N39.0 TERESA (acute kidney injury) N17.9 HTN (hypertension) I10 CVA (cerebral vascular accident) I63.9 Atrial fibrillation I48.91 Hyperlipidemia E78.5
[2020-03-26] MEDS: cefTRIAXone 1,000 MG in sodium chloride 0.9% (plus) 50 ML 100 MG IV (20:06)
[2020-03-27] VITALS (8 sets, daily range): BP systolic 121–166; BP diastolic 63–71; PULSE 63–73; RESP 15–18; TEMP 36.5–36.9; O2SAT 91–98
[2020-03-27] MEDS: CELEcoxib 200 mg Capsule PO ×2 (00:59→12:53)
[2020-03-27] MEDS: vancomycin 1,000 MG in sodium chloride 0.9% 250 ML 250 MG IV (01:00)
[2020-03-27] MEDS: hyDRALAzine 50 mg Tablet PO ×3 (04:57→21:18)
[2020-03-27 05:40] LABS: Basophils % 0.1 %; Hematocrit 29.6 % (37.0-47.0); Hemoglobin 9.4 g/dL (11.5-15.3); Lymphocytes # 0.9 10^3/uL (0.8-4.8); Lymphocytes % 8.3 %; Mean Corpuscular HGB Conc 31.8 g/dL (30.0-36.0); Mean Corpuscular Hemoglobin 29.4 pg (28.0-34.0); Mean Corpuscular Volume 92.5 fL (81-99); Monocytes # 0.5 10^3/uL (0.2-0.9); Monocytes % 4.9 %; Neutrophils % 86.3 %; Nucleated Red Blood Cells % 0 %; Platelet Count 164 10^3/cmm (130-400); Red Cell Distribution Width 12.9 % (12.1-15.1); White Blood Count 10.4 10^3/uL (4.0-10.0)
[2020-03-27 05:59] LABS: Anion Gap 14.4 (5-19); Blood Urea Nitrogen 40 mg/dL (8-23); Calcium 8.5 mg/dL (8.5-10.5); Carbon Dioxide 20 mmol/L (22-29); Chloride 104 mmol/L (98-107); Glucose 139 mg/dL (65-115); Osmolality Calculated 290 mOsm/kg (285-295); Potassium 4.4 mmol/L (3.5-5.1); Sodium 134 mmol/L (136-145)
[2020-03-27] MEDS: aspirin 325 mg EC Tablet PO (08:38)
[2020-03-27] MEDS: calcium carbonate 500 mg Chew Tablet 1000 MG PO ×2 (08:38→17:17)
[2020-03-27] MEDS: HYDROcodone-acetaminophen 5-325 mg Tablet 1 TAB PO ×2 (08:38→17:19)
[2020-03-27] MEDS: metoprolol tartrate 50 mg Tablet PO ×3 (08:39→21:18)
[2020-03-27] MEDS: multivitamin therapeutic Tablet 1 TAB PO (08:39)
[2020-03-27] MEDS: sennosides-docusate Tablet 2 TAB PO ×2 (08:39→17:17)
[2020-03-27] MEDS: cholecalciferol (vitamin D3) 5,000 unit Tablet 5000 UNIT PO (08:39)
[2020-03-27] MEDS: levothyroxine 50 mcg Tablet PO (08:39)
[2020-03-27] MEDS: chlorhexidine gluconate 0.12% Btl 473 mL 30 ML MUCOUS MEM ×4 (08:40→21:35)
[2020-03-27] MEDS: amiodarone 200 mg Tablet 100 MG PO (08:40)
[2020-03-27] MEDS: mupirocin oint 22 gm 1 APPLIC NASAL ×2 (08:40→17:18)
[2020-03-27] MEDS: iron polysaccharide complex 150 mg Capsule PO ×2 (08:49→17:17)
[2020-03-27] MEDS: cholecalciferol (vitamin D3) 1,000 unit Tablet 1000 UNIT PO (08:49)
[2020-03-27] MEDS: sodium chloride 0.9% 1,000 ML 75 ML IV ×2 (08:50→21:12)
--- NOTE | 2020-03-27 13:37 | P.PN_ITS ---
Subjective Subjective: Interval history: Apart from mild pain in left leg, she has no other complain, right eye swelling has substantially decreased. Right frontal swelling is also decreased. Vitals labs reviewed reviewed Medications: Reviewed: Yes Vitals/I&O/Wt Last Vital Signs Temp 98.4 F 03/27/20 11:24 Pulse 64 03/27/20 11:24 Resp 16 03/27/20 11:24 BP 122/65 03/27/20 11:24 Pulse Ox 97 03/27/20 11:24 03/26/20 03/27/20 03/27/20 22:59 06:59 14:59 Intake Total 2040 / 2150 300 / 2450 1000 / 1000 Output Total 725 / 725 180 / 905 50 / 50 Balance 1315 / 1425 120 / 1545 950 / 950 Physical Exam Narrative: EXAM NARRATIVE: COMMON NORMALS: no acute distress, average body habitus, patient oriented x3 and alert GENERAL APPEARANCE: cooperative and comfortable ORIENTATION/CONSCIOUSNESS: Yes awake HENMT COMMON NORMALS: normocephalic; head/scalp not atraumatic HEAD & SCALP: normocephalic; not atraumatic FACE & SINUS: other (Patient has ecchymosis about the left eye secondary to her fall.) Chest COMMONS NORMALS: normal inspection of the chest Resp COMMON NORMALS: normal respiratory effort EFFORT & INSPECTION: Yes able to speak in complete sentences and Yes symmetric chest movement Extremity LEFT LOWER EXTREMITY: Yes hip joint Left hip: Yes inspection (There is no significant swelling or bruising.), Yes palpation (There is tenderness to palpation.), Yes ROM (Not evaluated secondary to fracture.) and Yes neurovascular exam (Intact.) Neuro COMMON NORMALS: patient oriented x3 SENSORIUM/ORIENTATION: Yes alert Psych COMMON NORMALS: mental status grossly normal APPEARANCE: Yes grossly normal ATTITUDE: Yes calm and Yes engaged ATTENTION/CONCENTRATION: Yes attention grossly intact Skin COMMON NORMALS: no rashes or lesions noted GENERAL SKIN EXAM: no rashes or lesions noted Urinary Catheter Management^: Morales: Cath Placed During This Visit: yes Reason for Continuing Indwelling Catheter: Accurate Measurement of Urinary Output in Critically Ill Patients Urinary Catheter Date of Insertion: 03/25/20 Urinary Catheter Time of Insertion: 15:15 Data : 03/27/20 05:21 03/27/20 05:21 Micro: Microbiology 03/25/20 19:00 Urine Culture - Preliminary Urine,Clean Catch Gram Negative Rods A&P Assessment and plan (1) TERESA (acute kidney injury): TERESA V/S TERESA ON CKD Have discontinued Celecoxib 200 mg po q12 h daily. Continue I.V Hydration Monitor Urine output. Avoid Nephrotoxic Medications. Status: Acute (2) UTI (urinary tract infection): Continue Ceftriaxone 1 gm q24 h daily Status: Acute (3) Hip fracture: XR hip LT 2-3V : Complete transverse subcapital fracture.Proximal left femur fracture. Continue with pain with medication. Continue IV Zofran. 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 Status: Acute (4) HTN (hypertension): Start Metoprolo Tartrate 50 mg q12 h daily. Continue to hold Lisinopril. Status: Acute (5) CVA (cerebral vascular accident): Continue with aspirin and statin Status: Acute (6) Atrial fibrillation: Currently rate controlled Continue Aspirin 325 mg oral daily Status: Acute Attestations Medical Necessity Statement*: Left hip fracture management. Coding Level of Care Code Acute Curriculum And Assessment Director for [facility] Diagnoses TERESA (acute kidney injury) N17.9 UTI (urinary tract infection) N39.0 Hip fracture S72.009A HTN (hypertension) I10 CVA (cerebral vascular accident) I63.9 Atrial fibrillation I48.91
[2020-03-27] MEDS: cefTRIAXone 1,000 MG in sodium chloride 0.9% (plus) 50 ML 100 MG IV (21:11)
[2020-03-27] MEDS: acetaminophen 500 mg Tablet 1000 MG PO (21:18)
--- NOTE | 2020-03-27 22:01 | P.PN_ITS ---
Subjective Subjective: Interval history: Apart from mild pain in left leg, she has no other complaints. 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 Her right eye swelling has substantially decreased. Right frontal swelling is also decreased. Vitals labs reviewed reviewed. Medications: Reviewed: Yes Vitals/I&O/Wt Last Vital Signs Temp 98.5 F 03/27/20 19:40 Pulse 64 03/27/20 19:40 Resp 17 03/27/20 19:40 BP 121/66 03/27/20 19:40 Pulse Ox 91 03/27/20 19:40 03/27/20 03/27/20 03/27/20 06:59 14:59 22:59 Intake Total 300 / 2450 1120 / 1120 1167.5 / 2287.5 Output Total 180 / 905 50 / 50 200 / 250 Balance 120 / 1545 1070 / 1070 967.5 / 2037.5 Physical Exam Const: COMMON NORMALS: no acute distress, average body habitus, patient oriented x3 and alert GENERAL APPEARANCE: cooperative and comfortable ORIENTATION/CONSCIOUSNESS: Yes awake HENMT: COMMON NORMALS: normocephalic; head/scalp not atraumatic HEAD & SCALP: normocephalic; not atraumatic FACE & SINUS: other (Patient has ecchymosis about the left eye secondary to her fall.) Chest: COMMONS NORMALS: normal inspection of the chest Resp: COMMON NORMALS: normal respiratory effort EFFORT & INSPECTION: Yes able to speak in complete sentences and Yes symmetric chest movement Extremity: LEFT LOWER EXTREMITY: Yes hip joint (Patient's dressing is dry and intact. This is not removed.) Left hip: Yes palpation (Minimal tenderness to palpation.), Yes ROM (Not assessed) and Yes neurovascular exam (Intact distal to the fracture site with no evidence of DVT.) Neuro: COMMON NORMALS: patient oriented x3 SENSORIUM/ORIENTATION: Yes alert Psych: COMMON NORMALS: mental status grossly normal APPEARANCE: Yes grossly normal ATTITUDE: Yes calm and Yes engaged ATTENTION/CONCENTRATION: Yes attention grossly intact Skin: COMMON NORMALS: no rashes or lesions noted GENERAL SKIN EXAM: no patience hes or lesions noted Urinary Catheter Management^: Morales: Cath Placed During This Visit: yes Reason for Continuing Indwelling Catheter: Accurate Measurement of Urinary Output in Critically Ill Patients Urinary Catheter Date of Insertion: 03/25/20 Urinary Catheter Time of Insertion: 15:15 Data : 03/27/20 05:21 03/27/20 05:21 Micro: Microbiology 03/25/20 19:00 Urine Culture - Preliminary Urine,Clean Catch Gram Negative Rods A&P Assessment and plan (1) Subcapital fracture of left hip: Patient underwent an uneventful bipolar hip arthroplasty. She did have elevated blood pressure postoperatively, however, this has resolved. She complains of minimal to no discomfort in the hip. Her other bruises and abrasions from her fall are resolving. Urine is being monitored by the hospitalist team. When the patient is ready for discharge, I am in agreement with her discharge either to retirement or to home depending upon recommendation from physical therapy. She will remain weightbearing as to lerated on her left lower extremity with posterior hip precautions. Status: Acute Qualifiers: Encounter type: initial encounter Fracture type: closed Qualified Code(s): S72.012A - Unspecified intracapsular fracture of left femur, initial encounter for closed fracture Attestations Medical Necessity Statement*: Patient requires ongoing medical care following open reduction internal fixation of a left subcapital hip fracture. Coding Level of Care Code Acute Criminal Records Technician for [facility] Diagnoses Subcapital fracture of left hip S72.012A Encounter type: initial encounter Fracture type: closed
[2020-03-28] VITALS (10 sets, daily range): BP systolic 117–161; BP diastolic 54–76; PULSE 62–82; RESP 16–22; TEMP 36.4–36.9; O2SAT 86–97
--- NOTE | 2020-03-28 04:57 | USR_ITS ---
PROCEDURE INFORMATION: Exam: US Retroperitoneal; Complete; Kidneys and Bladder Exam date and time: 03/28/2020 8:52 AM Age: 84 years old Clinical indication: Abnormal findings; Abnormal lab test; Abnormal kidney function lab tests; Other: Decreased urine output; Additional info: Decreased urine output, increased creatinine TECHNIQUE: Imaging protocol: Real-time ultrasound of the retroperitoneum with image documentation. Complete exam focused on the kidneys and bladder. COMPARISON: US Renal Kidney Structu* [id number] 08/26/2016 3:25 PM FINDINGS: Right kidney: The right kidney measures 9.2 cm in length. There is mild right renal cortical atrophy. There are 3 benign cysts in the lower pole of the right kidney measuring 1.9, 1.1 and 0.8 cm in diameter. No suspicious masses are seen in the right kidney. There is no renal calcification or hydronephrosis. Left kidney: The left kidney measures 8.8 cm in length. There is mild renal cortical atrophy. No mass or calcification is seen in the left kidney. There is no hydronephrosis. Aorta: The aorta is obscured by bowel. Intraperitoneal space: There is a tiny amount of free fluid in Morison's pouch. Bladder: The urinary bladder was not imaged.. US/US renal BI* [id number] IMPRESSION: 1. Mild bilateral renal cortical atrophy. 2. There are 3 benign cysts in the lower pole of the right kidney. COMMENTS: Consistent with the [employer]'s Incidental Findings Committee white paper (J Am Raudel Radiol 2018): Any incidental renal lesion less than 1.0 cm or classified as too small to characterize, or any incidental cystic renal lesion characterized as simple-appearing, is likely benign. No follow-up imaging is recommended for these lesions per consensus recommendations based on imaging criteria.
[2020-03-28] MEDS: acetaminophen 500 mg Tablet 1000 MG PO ×2 (05:31→21:29)
[2020-03-28 05:32] LABS: Basophils # 0.1 10^3/uL (0.0-0.1); Basophils % 0.5 %; Eosinophils # 0.5 10^3/uL (0.0-0.8); Eosinophils % 5.1 %; Hematocrit 30.1 % (37.0-47.0); Hemoglobin 9.2 g/dL (11.5-15.3); Lymphocytes # 1.4 10^3/uL (0.8-4.8); Lymphocytes % 13.9 %; Mean Corpuscular HGB Conc 30.6 g/dL (30.0-36.0); Mean Corpuscular Hemoglobin 29.6 pg (28.0-34.0); Mean Corpuscular Volume 96.8 fL (81-99); Mean Platelet Volume 12.7 fL (7.4-10.4); Monocytes # 0.6 10^3/uL (0.2-0.9); Monocytes % 6.2 %; Neutrophils # 7.52 10^3/uL (1.8-7.7); Neutrophils % 73.9 %; Nucleated Red Blood Cells % 0 %; Platelet Count 162 10^3/cmm (130-400); Red Blood Count 3.11 10^6/uL (4.1-5.3); Red Cell Distribution Width 13.6 % (12.1-15.1); White Blood Count 10.2 10^3/uL (4.0-10.0)
[2020-03-28] MEDS: bisacodyl 5 mg Tablet 10 MG PO (05:32)
[2020-03-28] MEDS: hyDRALAzine 50 mg Tablet PO ×2 (05:32→21:29)
[2020-03-28 06:03] LABS: Anion Gap 14.1 (5-19); Blood Urea Nitrogen 46 mg/dL (8-23); Calcium 8.6 mg/dL (8.5-10.5); Carbon Dioxide 19 mmol/L (22-29); Chloride 107 mmol/L (98-107); Glucose 107 mg/dL (65-115); Osmolality Calculated 294 mOsm/kg (285-295); Potassium 4.1 mmol/L (3.5-5.1); Sodium 136 mmol/L (136-145)
--- NOTE | 2020-03-28 08:43 | PC.NURSE ---
US at bedside to complete US of kidneys
[2020-03-28] MEDS: chlorhexidine gluconate 0.12% Btl 473 mL 30 ML MUCOUS MEM ×4 (09:00→21:31)
[2020-03-28] MEDS: calcium carbonate 500 mg Chew Tablet 1000 MG PO ×2 (09:01→17:42)
[2020-03-28] MEDS: cholecalciferol (vitamin D3) 5,000 unit Tablet 5000 UNIT PO (09:01)
[2020-03-28] MEDS: amiodarone 200 mg Tablet 100 MG PO (09:01)
[2020-03-28] MEDS: iron polysaccharide complex 150 mg Capsule PO ×2 (09:02→17:43)
[2020-03-28] MEDS: sennosides-docusate Tablet 2 TAB PO ×2 (09:02→17:42)
[2020-03-28] MEDS: multivitamin therapeutic Tablet 1 TAB PO (09:02)
[2020-03-28] MEDS: cholecalciferol (vitamin D3) 1,000 unit Tablet 1000 UNIT PO (09:03)
[2020-03-28] MEDS: metoprolol tartrate 50 mg Tablet PO ×3 (09:03→21:30)
[2020-03-28] MEDS: levothyroxine 50 mcg Tablet PO (09:03)
[2020-03-28] MEDS: mupirocin oint 22 gm 1 APPLIC NASAL ×2 (09:03→17:43)
[2020-03-28] MEDS: aspirin 325 mg EC Tablet PO (09:03)
[2020-03-28] MEDS: sodium chloride 0.9% 1,000 ML 75 ML IV ×2 (10:35→18:50)
--- NOTE | 2020-03-28 11:26 | PC.SOCIAL ---
IMM Update Pg. 2 of IMM updated and reviewed with patient. Copy provided.
--- NOTE | 2020-03-28 12:24 | PM.PN ---
Subjective Subjective: Interval history: Patient continues to work with physical therapy. Today, she did have some renal issues which are being addressed by the hospitalist service. She feels ready to be discharged from an orthopedic standpoint. Medications: Reviewed: Yes Vitals/I&O/Wt Last Vital Signs Temp 97.8 F 03/28/20 12:00 Pulse 62 03/28/20 12:00 Resp 18 03/28/20 12:00 BP 117/74 03/28/20 12:00 Pulse Ox 97 03/28/20 12:00 03/27/20 03/28/20 03/28/20 22:59 06:59 14:59 Intake Total 1167.5 / 2287.5 360 / 2647.5 1220 / 1220 Output Total 200 / 250 150 / 400 Balance 967.5 / 2037.5 210 / 2247.5 1220 / 1220 Physical Exam Const: COMMON NORMALS: no acute distress, average body habitus, patient oriented x3 and alert GENERAL APPEARANCE: cooperative and comfortable ORIENTATION/CONSCIOUSNESS: Yes awake HENMT: COMMON NORMALS: normocephalic; head/scalp not atraumatic HEAD & SCALP: normocephalic; not atraumatic FACE & SINUS: other (Patient has ecchymosis about the left eye secondary to her fall.) Chest: COMMONS NORMALS: normal inspection of the chest Resp: COMMON NORMALS: normal respiratory effort EFFORT & INSPECTION: Yes able to speak in complete sentences and Yes symmetric chest movement Extremity: LEFT LOWER EXTREMITY: Yes hip joint Left hip: Yes inspection (Patient's hip wound is benign. There is minimal to no swelling.), Yes palpation (Minimal tenderness to palpation.) and Yes neurovascular exam (Intact without evidence of DVT.) Neuro: COMMON NORMALS: patient oriented x3 SENSORIUM/ORIENTATION: Yes alert Psych: COMMON NORMALS: mental status grossly normal APPEARANCE: Yes grossly normal ATTITUDE: Yes calm and Yes engaged ATTENTION/CONCENTRATION: Yes attention grossly intact Skin: COMMON NORMALS: no rashes or lesions noted GENERAL SKIN EXAM: no rashes or lesions noted Urinary Catheter Management^: Morales: Cath Placed During This Visit: yes Reason for Continuing Indwelling Catheter: Acute Urinary Retention or Obstruction Urinary Catheter Date of Insertion: 03/25/20 Urinary Catheter Time of Insertion: 15:15 Data : 03/28/20 04:26 03/28/20 04:26 Micro: Microbiology 03/25/20 19:00 Urine Culture - Final Urine,Clean Catch Klebsiella pneumoniae A&P Assessment and plan (1) Subcapital fracture of left hip: Patient underwent an uneventful bipolar hip arthroplasty. She complains of minimal to no discomfort in the hip. Her other bruises and abrasions from her fall are resolving. Urine is being monitored by the hospitalist team. There are some renal issues, and this is being addressed by the hospitalist team. When the patient is ready for discharge, I am in agreement with her discharge either to prison or to home depending upon recommendation from physical therapy. We are leaning toward home health. She will remain weightbearing as tolerated on her left lower extremity with posterior hip precautions. Status: Acute Qualifiers: Encounter type: initial encounter Fracture type: closed Qualified Code(s): S72.012A - Unspecified intracapsular fracture of left femur, initial encounter for closed fracture Attestations Medical Necessity Statement*: Patient continues to require in house monitoring of medical issues as well as her recovery from her subcapital left hip fracture. Coding Level of Care Code Acute Batter Depositor for [facility] Diagnoses Subcapital fracture of left hip S72.012A Encounter type: initial encounter Fracture type: closed
[2020-03-28] MEDS: sodium chloride 0.9% 500 ML IV (13:30)
--- NOTE | 2020-03-28 15:50 | PM.PN ---
Subjective Subjective: Interval history: She has decreased urine output in the last 24-hour. She has started ambulating. Swelling and redness around the right eye is decreasing. She has remained afebrile. Vitals and labs have been reviewed. Medications: Reviewed: Yes Vitals/I&O/Wt Last Vital Signs Temp 97.8 F 03/28/20 12:00 Pulse 82 03/28/20 15:15 Resp 16 03/28/20 14:54 BP 117/74 03/28/20 12:00 Pulse Ox 86 L 03/28/20 15:15 03/28/20 03/28/20 03/28/20 06:59 14:59 22:59 Intake Total 360 / 2647.5 1580 / 1580 Output Total 150 / 400 Balance 210 / 2247.5 1580 / 1580 Physical Exam Narrative: EXAM NARRATIVE: EXAM NARRATIVE: COMMON NORMALS: no acute distress, average body habitus, patient oriented x3 and alert GENERAL APPEARANCE: cooperative and comfortable ORIENTATION/CONSCIOUSNESS: Yes awake HENMT COMMON NORMALS: normocephalic; head/scalp not atraumatic HEAD & SCALP: normocephalic; not atraumatic FACE & SINUS: other (Patient has ecchymosis about the left eye secondary to her fall.) Chest COMMONS NORMALS: normal inspection of the chest Resp COMMON NORMALS: normal respiratory effort EFFORT & INSPECTION: Yes able to speak in complete sentences and Yes symmetric chest movement Extremity LEFT LOWER EXTREMITY: Yes hip joint Left hip: Yes inspection (There is no significant swelling or bruising.), Yes palpation (There is tenderness to palpation.), Yes ROM (Not evaluated secondary to fracture.) and Yes neurovascular exam (Intact.) Neuro COMMON NORMALS: patient oriented x3 SENSORIUM/ORIENTATION: Yes alert Psych COMMON NORMALS: mental status grossly normal APPEARANCE: Yes grossly normal ATTITUDE: Yes calm and Yes engaged ATTENTION/CONCENTRATION: Yes attention grossly intact Skin COMMON NORMALS: no rashes or lesions noted GENERAL SKIN EXAM: no rashes or lesions noted Urinary Catheter Management^: Morales: Cath Placed During This Visit: yes Reason for Continuing Indwelling Catheter: Acute Urinary Retention or Obstruction Urinary Catheter Date of Insertion: 03/25/20 Urinary Catheter Time of Insertion: 15:15 Data : 03/28/20 04:26 03/28/20 04:26 Micro: Microbiology 03/25/20 19:00 Urine Culture - Final Urine,Clean Catch Klebsiella pneumoniae A&P Assessment and plan (1) TERESA (acute kidney injury): TERESA V/S TERESA ON CKD Have discontinued Celecoxib 200 mg po q12 h daily. Serum creatinine is 2.3 today as compared to 1.4 on admission. Continue I.V Hydration Monitor Urine output. Avoid Nephrotoxic Medications. Status: Acute (2) UTI (urinary tract infection): Continue Ceftriaxone 1 gm q24 h daily Status: Acute (3) Hip fracture: XR hip LT 2-3V : Complete transverse subcapital fracture.Proximal left femur fracture. Continue with pain with medication. Continue IV Zofran. 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 Status: Acute (4) HTN (hypertension): Start Metoprolo Tartrate 50 mg q12 h daily. Continue to hold Lisinopril. Status: Acute (5) CVA (cerebral vascular accident): Continue with aspirin and statin Status: Acute (6) Atrial fibrillation: Currently rate controlled Continue Aspirin 325 mg oral daily Status: Acute Additional A&P Information CODE STATUS: Full code DVT PPX: As per orthopedic surgeon. Attestations Medical Necessity Statement*: Patient needs to be in hospital for the management TERESA, UTI, and left hip fracture Coding Level of Care Code Acute Bar Useful Or Busser for [facility] Diagnoses TERESA (acute kidney injury) N17.9 UTI (urinary tract infection) N39.0 Hip fracture S72.009A HTN (hypertension) I10 CVA (cerebral vascular accident) I63.9 Atrial fibrillation I48.91
[2020-03-28] MEDS: cefTRIAXone 1,000 MG in sodium chloride 0.9% (plus) 50 ML 100 MG IV (21:30)
[2020-03-29] VITALS (7 sets, daily range): BP systolic 156–179; BP diastolic 64–77; PULSE 65–78; RESP 16–20; TEMP 36.4–37; O2SAT 90–93
[2020-03-29] MEDS: acetaminophen 500 mg Tablet 1000 MG PO ×2 (05:48→21:45)
[2020-03-29] MEDS: hyDRALAzine 50 mg Tablet PO ×2 (05:48→21:45)
[2020-03-29 05:50] LABS: Basophils # 0.1 10^3/uL (0.0-0.1); Basophils % 0.6 %; Eosinophils # 0.5 10^3/uL (0.0-0.8); Eosinophils % 5.1 %; Hemoglobin 8.2 g/dL (11.5-15.3); Lymphocytes # 1.3 10^3/uL (0.8-4.8); Lymphocytes % 13.3 %; Mean Corpuscular HGB Conc 30.4 g/dL (30.0-36.0); Mean Corpuscular Hemoglobin 29.5 pg (28.0-34.0); Mean Corpuscular Volume 97.1 fL (81-99); Mean Platelet Volume 12.7 fL (7.4-10.4); Monocytes # 0.6 10^3/uL (0.2-0.9); Monocytes % 6.2 %; Neutrophils # 7.28 10^3/uL (1.8-7.7); Neutrophils % 74.2 %; Nucleated Red Blood Cells % 0 %; Platelet Count 161 10^3/cmm (130-400); Red Blood Count 2.78 10^6/uL (4.1-5.3); Red Cell Distribution Width 13.2 % (12.1-15.1); White Blood Count 9.8 10^3/uL (4.0-10.0)
[2020-03-29] MEDS: aspirin 325 mg EC Tablet PO (09:09)
[2020-03-29] MEDS: amiodarone 200 mg Tablet 100 MG PO (09:09)
[2020-03-29] MEDS: cholecalciferol (vitamin D3) 5,000 unit Tablet 5000 UNIT PO (09:09)
[2020-03-29] MEDS: metoprolol tartrate 50 mg Tablet PO ×3 (09:09→21:45)
[2020-03-29] MEDS: multivitamin therapeutic Tablet 1 TAB PO (09:09)
[2020-03-29] MEDS: sennosides-docusate Tablet 2 TAB PO (09:09)
[2020-03-29] MEDS: chlorhexidine gluconate 0.12% Btl 473 mL 30 ML MUCOUS MEM ×2 (09:10→21:46)
[2020-03-29] MEDS: levothyroxine 50 mcg Tablet PO (09:10)
[2020-03-29] MEDS: cholecalciferol (vitamin D3) 1,000 unit Tablet 1000 UNIT PO (09:10)
[2020-03-29] MEDS: iron polysaccharide complex 150 mg Capsule PO ×2 (09:13→17:09)
[2020-03-29] MEDS: sodium chloride 0.9% 1,000 ML 75 ML IV (09:18)
[2020-03-29 10:09] LABS: Blood Urea Nitrogen 47 mg/dL (8-23); Calcium 8.3 mg/dL (8.5-10.5); Carbon Dioxide 17 mmol/L (22-29); Chloride 108 mmol/L (98-107); Glucose 106 mg/dL (65-115); Osmolality Calculated 289 mOsm/kg (285-295); Sodium 133 mmol/L (136-145)
--- NOTE | 2020-03-29 11:38 | PM.PN ---
Subjective Subjective: Interval history: The patient's doing well. She is working with physical therapy. She is anticipating discharge to home with home health. Medications: Reviewed: Yes Vitals/I&O/Wt Last Vital Signs Temp 98.3 F 03/29/20 07:41 Pulse 75 03/29/20 07:41 Resp 18 03/29/20 07:41 BP 156/70 03/29/20 07:41 Pulse Ox 91 03/29/20 07:41 03/28/20 03/29/20 03/29/20 22:59 06:59 14:59 Intake Total 778.667 / 3152.417 400 / 3552.417 1240 / 1240 Output Total 450 / 450 400 / 850 300 / 300 Balance 328.667 / 2702.417 0 / 2702.417 940 / 940 Physical Exam Const: COMMON NORMALS: no acute distress, average body habitus, patient oriented x3 and alert GENERAL APPEARANCE: cooperative and comfortable ORIENTATION/CONSCIOUSNESS: Yes awake HENMT: COMMON NORMALS: normocephalic; head/scalp not atraumatic HEAD & SCALP: normocephalic; not atraumatic FACE & SINUS: other (Patient has ecchymosis about the left eye secondary to her fall.) Chest: COMMONS NORMALS: normal inspection of the chest Resp: COMMON NORMALS: normal respiratory effort EFFORT & INSPECTION: Yes able to speak in complete sentences and Yes symmetric chest movement Extremity: LEFT LOWER EXTREMITY: Yes hip joint (The hip remains soft and nontender to palpation. There is minimal to no ecchymosis. There is minimal swelling. She is neurologically intact distally. Range of motion is not evaluated. There are no complications noted, and there is no evidence of DVT.) Neuro: COMMON NORMALS: patient oriented x3 SENSORIUM/ORIENTATION: Yes alert Psych: COMMON NORMALS: mental status grossly normal APPEARANCE: Yes grossly normal ATTITUDE: Yes calm and Yes engaged ATTENTION/CONCENTRATION: Yes attention grossly intact Skin: COMMON NORMALS: no rashes or lesions noted GENERAL SKIN EXAM: no rashes or lesions noted Urinary Catheter Management^: Morales: Cath Placed During This Visit: yes Reason for Continuing Indwelling Catheter: Accurate Measurement of Urinary Output in Critically Ill Patients Urinary Catheter Date of Insertion: 03/25/20 Urinary Catheter Time of Insertion: 15:15 Data : 03/29/20 05:09 03/29/20 05:09 Micro: Microbiology 03/25/20 19:00 Urine Culture - Final Urine,Clean Catch Klebsiella pneumoniae A&P Assessment and plan (1) Subcapital fracture of left hip: Patient underwent an uneventful bipolar hip arthroplasty. She complains of minimal to no discomfort in the hip. Her other bruises and abrasions from her fall are resolving. Urine is being monitored by the hospitalist team. The patient's renal issues are being addressed by the hospitalist team. When the patient is ready for discharge, I am in agreement with her discharge either to penitentiary or to home depending upon recommendation from physical therapy. We are leaning toward home health. She will remain weightbearing as tolerated on her left lower extremity with posterior hip precautions. Status: Acute Qualifiers: Encounter type: initial encounter Fracture type: closed Qualified Code(s): S72.012A - Unspecified intracapsular fracture of left femur, initial encounter for closed fracture Attestations Medical Necessity Statement*: The position is required to address medical comorbidities. Coding Level of Care Code Acute Cross Tie Turner for [facility] Linda Diagnoses Subcapital fracture of left hip S72.012A Encounter type: initial encounter Fracture type: closed
--- NOTE | 2020-03-29 17:57 | PC.NURSE ---
Spoke with patient's sister Shanice Balderrama [phone] at this time. Shanice states that she may have to have someone pick Rebecca up when she is discharged but that she will send clothes for her with them. Shanice would like a callwhen it is decided if Rebecca is able to come home.
[2020-03-29] MEDS: cefTRIAXone 1,000 MG in sodium chloride 0.9% (plus) 50 ML 100 MG IV (20:25)
--- NOTE | 2020-03-29 21:09 | PM.PN ---
Subjective Subjective: Interval history: No acute event SCR is trending down.Continue with gentle hydration encourage PO fluid intake. She is participating in physical therapy. Rt eye and rt frontal head redness and swelling has improved Medications: Reviewed: Yes Vitals/I&O/Wt Last Vital Signs Temp 97.9 F 03/29/20 19:52 Pulse 75 03/29/20 19:52 Resp 20 H 03/29/20 19:52 BP 179/69 03/29/20 19:52 Pulse Ox 91 03/29/20 19:52 03/29/20 03/29/20 03/29/20 06:59 14:59 22:59 Intake Total 400 / 3602.417 1440 / 1440 100 / 1540 Output Total 400 / 850 300 / 300 575 / 875 Balance 0 / 2752.417 1140 / 1140 -475 / 665 Physical Exam Narrative: EXAM NARRATIVE: COMMON NORMALS: no acute distress, average body habitus, patient oriented x3 and alert GENERAL APPEARANCE: cooperative and comfortable ORIENTATION/CONSCIOUSNESS: Yes awake HENMT COMMON NORMALS: normocephalic; head/scalp not atraumatic HEAD & SCALP: normocephalic; not atraumatic FACE & SINUS: other (Patient has ecchymosis about the left eye secondary to her fall.) Chest COMMONS NORMALS: normal inspection of the chest Resp COMMON NORMALS: normal respiratory effort EFFORT & INSPECTION: Yes able to speak in complete sentences and Yes symmetric chest movement Extremity LEFT LOWER EXTREMITY: Yes hip joint (The hip remains soft and nontender to palpation. There is minimal to no ecchymosis. There is minimal swelling. She is neurologically intact distally. Range of motion is not evaluated. There are no complications noted, and there is no evidence of DVT.) Neuro COMMON NORMALS: patient oriented x3 SENSORIUM/ORIENTATION: Yes alert Psych COMMON NORMALS: mental status grossly darin Urinary Catheter Management^: Morales: Cath Placed During This Visit: yes Reason for Continuing Indwelling Catheter: Accurate Measurement of Urinary Output in Critically Ill Patients Urinary Catheter Date of Insertion: 03/25/20 Urinary Catheter Time of Insertion: 15:15 Data : 03/29/20 05:09 03/29/20 05:09 A&P Assessment and plan (1) TERESA (acute kidney injury): TERESA V/S TERESA ON CKD Have discontinued Celecoxib 200 mg po q12 h daily. Serum creatinine is decraesing today. Continue gentle Hydration Monitor Urine output. Avoid Nephrotoxic Medications. Status: Acute (2) UTI (urinary tract infection): Continue Ceftriaxone 1 gm q24 h daily Status: Acute (3) Hip fracture: XR hip LT 2-3V : Complete transverse subcapital fracture.Proximal left femur fracture. Continue with pain with medication. Continue IV Zofran. 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 Status: Acute (4) HTN (hypertension): Metoprolo Tartrate 50 mg q12 h daily. Hydralazine 35 mg q8h daily Continue to hold Lisinopril. Status: Acute (5) CVA (cerebral vascular accident): Continue with aspirin and statin Status: Acute (6) Atrial fibrillation: Currently rate controlled Continue Aspirin 325 mg oral daily Status: Acute Additional A&P Information CODE STATUS: Full code DVT PPX: As per orthopedic surgeon. Attestations Medical Necessity Statement*: Patient needs to be in hospital for management of TERESA and fracture Coding Level of Care Code Acute Security Control Assessor for Jose Mckeon Diagnoses TERESA (acute kidney injury) N17.9 UTI (urinary tract infection) N39.0 Hip fracture S72.009A HTN (hypertension) I10 CVA (cerebral vascular accident) I63.9 Atrial fibrillation I48.91
[2020-03-30] VITALS (7 sets, daily range): BP systolic 167–190; BP diastolic 60–75; PULSE 67–73; RESP 17–18; TEMP 36.4–36.9; O2SAT 94–95
[2020-03-30] MEDS: acetaminophen 500 mg Tablet 1000 MG PO ×3 (04:41→21:54)
[2020-03-30] MEDS: hyDRALAzine 50 mg Tablet PO ×3 (04:41→21:54)
[2020-03-30 05:41] LABS: Anion Gap 13.9 (5-19); Blood Urea Nitrogen 37 mg/dL (8-23); Calcium 8.8 mg/dL (8.5-10.5); Carbon Dioxide 18 mmol/L (22-29); Chloride 109 mmol/L (98-107); Glucose 104 mg/dL (65-115); Osmolality Calculated 293 mOsm/kg (285-295); Potassium 3.9 mmol/L (3.5-5.1); Sodium 137 mmol/L (136-145)
[2020-03-30] MEDS: aspirin 325 mg EC Tablet PO (10:00)
[2020-03-30] MEDS: multivitamin therapeutic Tablet 1 TAB PO (10:00)
[2020-03-30] MEDS: amiodarone 200 mg Tablet 100 MG PO (10:00)
[2020-03-30] MEDS: levothyroxine 50 mcg Tablet PO (10:00)
[2020-03-30] MEDS: iron polysaccharide complex 150 mg Capsule PO ×2 (10:00→17:44)
[2020-03-30] MEDS: calcium carbonate 500 mg Chew Tablet 1000 MG PO ×2 (10:00→17:44)
[2020-03-30] MEDS: cholecalciferol (vitamin D3) 1,000 unit Tablet 1000 UNIT PO (10:00)
[2020-03-30] MEDS: cholecalciferol (vitamin D3) 5,000 unit Tablet 5000 UNIT PO (10:00)
[2020-03-30] MEDS: sennosides-docusate Tablet 2 TAB PO (10:00)
[2020-03-30] MEDS: metoprolol tartrate 50 mg Tablet PO ×2 (10:01→12:46)
[2020-03-30] MEDS: chlorhexidine gluconate 0.12% Btl 473 mL 30 ML MUCOUS MEM ×4 (10:04→21:54)
[2020-03-30] MEDS: mupirocin oint 22 gm 1 APPLIC NASAL ×2 (10:04→17:44)
--- NOTE | 2020-03-30 10:41 | PC.SOCIAL ---
IMM Updated Updated pt on Pg 2 IMM. No questions voiced. Provided pt a copy. Signed, dated, & timed copy in chart.
--- NOTE | 2020-03-30 13:30 | PM.PN ---
Subjective Subjective: Interval history: The patient continues to improve. She remains alert and is working with physical therapy. Medications: Reviewed: Yes Vitals/I&O/Wt Last Vital Signs Temp 98.5 F 03/30/20 11:47 Pulse 67 03/30/20 11:47 Resp 18 03/30/20 11:47 BP 190/68 03/30/20 11:47 Pulse Ox 95 03/30/20 11:47 03/29/20 03/30/20 03/30/20 22:59 06:59 14:59 Intake Total 200 / 1640 100 / 1740 380 / 380 Output Total 575 / 875 450 / 1325 Balance -375 / 765 -350 / 415 380 / 380 Physical Exam Const: COMMON NORMALS: no acute distress, average body habitus, patient oriented x3 and alert GENERAL APPEARANCE: cooperative and comfortable ORIENTATION/CONSCIOUSNESS: Yes awake HENMT: COMMON NORMALS: normocephalic; head/scalp not atraumatic HEAD & SCALP: normocephalic; not atraumatic FACE & SINUS: other (Patient has ecchymosis about the left eye secondary to her fall.) Chest: COMMONS NORMALS: normal inspection of the chest Resp: COMMON NORMALS: normal respiratory effort EFFORT & INSPECTION: Yes able to speak in complete sentences and Yes symmetric chest movement Extremity: LEFT LOWER EXTREMITY: Yes hip joint (Swelling continues to improve. There is no significant ecchymosis. There is no drainage.) Left hip: Yes inspection (The thigh is soft and nontender.) and Yes neurovascular exam (Intact distal to the surgical site without evidence of DVT.) Neuro: COMMON NORMALS: patient oriented x3 SENSORIUM/ORIENTATION: Yes alert Psych: COMMON NORMALS: mental status grossly normal APPEARANCE: Yes grossly normal ATTITUDE: Yes calm and Yes engaged ATTENTION/CONCENTRATION: Yes attention grossly intact Skin: COMMON NORMALS: no rashes or lesions noted GENERAL SKIN EXAM: no rashes or lesions noted Urinary Catheter Management^: Morales: Cath Placed During This Visit: yes Reason for Continuing Indwelling Catheter: Acute Urinary Retention or Obstruction Urinary Catheter Date of Insertion: 03/25/20 Urinary Catheter Time of Insertion: 15:15 Data : 03/29/20 05:09 03/30/20 04:57 A&P Assessment and plan (1) Subcapital fracture of left hip: Patient underwent an uneventful bipolar hip arthroplasty. She complains of minimal to no discomfort in the hip. Her other bruises and abrasions from her fall are resolving. When the patient is ready for discharge, I am in agreement with her discharge either to [facility] or to home depending upon recommendation from physical therapy. We are leaning toward home health. She will remain weightbearing as tolerated on her left lower extremity with posterior hip precautions. Renal issues continue to improve, but these are being monitored by the hospitalist team. She also has slight elevation in her blood pressure which will be further evaluated prior to her discharge. Status: Acute Qualifiers: Encounter type: initial encounter Fracture type: closed Qualified Code(s): S72.012A - Unspecified intracapsular fracture of left femur, initial encounter for closed fracture Attestations Medical Necessity Statement*: Continues to improve from an orthopedic perspective, she does have issues with blood pressure and renal function. This is being monitored by the hospitalist team. Coding Level of Care Code Acute Director Of Counterintelligence for Jose Mckeon Diagnoses Subcapital fracture of left hip S72.012A Encounter type: initial encounter Fracture type: closed
--- NOTE | 2020-03-30 14:36 | P.PN_ITS ---
Subjective Subjective: Interval history: Hospital course noted. No acute events overnight. Patient continues to do well. Working well with physical therapy. Denies of any nausea, vomiting, headache. Labs and vitals noted. Medications: Reviewed: Yes Vitals/I&O/Wt Last Vital Signs Temp 98.5 F 03/30/20 11:47 Pulse 73 03/30/20 14:00 Resp 18 03/30/20 14:00 BP 178/67 03/30/20 14:00 Pulse Ox 94 03/30/20 14:00 03/29/20 03/30/20 03/30/20 22:59 06:59 14:59 Intake Total 200 / 1640 100 / 1740 380 / 380 Output Total 575 / 875 450 / 1325 Balance -375 / 765 -350 / 415 380 / 380 Physical Exam Narrative: EXAM NARRATIVE: COMMON NORMALS: no acute distress, average body habitus, patient oriented x3 and alert GENERAL APPEARANCE: cooperative and comfortable ORIENTATION/CONSCIOUSNESS: Yes awake HENMT COMMON NORMALS: normocephalic; head/scalp not atraumatic HEAD & SCALP: normocephalic; not atraumatic FACE & SINUS: other (Patient has ecchymosis about the left eye secondary to her fall.) Chest COMMONS NORMALS: normal inspection of the chest Resp COMMON NORMALS: normal respiratory effort EFFORT & INSPECTION: Yes able to speak in complete sentences and Yes symmetric chest movement Extremity LEFT LOWER EXTREMITY: Yes hip joint (The hip remains soft and nontender to palpation. There is minimal to no ecchymosis. There is minimal swelling. She is neurologically intact distally. Range of motion is not evaluated. There are no complications noted, and there is no evidence of DVT.) Neuro COMMON NORMALS: patient oriented x3 SENSORIUM/ORIENTATION: Yes alert Psych COMMON NORMALS: mental status grossly darin Const: COMMON NORMALS: no acute distress, average body habitus, patient oriented x3, healthy appearing and alert GENERAL APPEARANCE: cooperative and comfortable ORIENTATION/CONSCIOUSNESS: Yes awake HENMT: COMMON NORMALS: normocephalic; head/scalp not atraumatic HEAD & SCALP: normocephalic; not atraumatic FACE & SINUS: other (Patient has ecchymosis about the left eye secondary to her fall.) OTHER: Hematoma to left forehead with a very small puncture wound Eye: COMMON NORMALS: Equal, round and reactive pupils present and EOMs intact bilaterally PUPIL: Yes Equal, round and reactive pupils present OTHER: Left eyelid is swollen and red with difficulty opening the eyelids. Dried blood is noted at both nostril. Neck/C-Spine: COMMON NORMALS: full ROM and supple Chest: COMMONS NORMALS: normal inspection of the chest and normal palpation of entire chest wall CHEST: Yes Symmetrical chest wall rise Resp: COMMON NORMALS: normal respiratory effort, No retractions, No use of accessory muscles and clear to auscultation bilaterally EFFORT & INSPECTION: Yes able to speak in complete sentences and Yes symmetric chest movement AUSCULTATION: clear to auscultation bilaterally Cardio: COMMON NORMALS: regular rate, regular rhythm, S1 normal heart sound present, S2 normal heart sound present, No gallops present (Cardio), No murmurs present (Cardio), No rub (Cardio) and Peripheral pulses 2+ throughout RATE: regular rate RHYTHM: regular rhythm HEART SOUNDS: S1 normal heart sound present and S2 normal heart sound present PERIPHERAL PULSES: Peripheral pulses 2+ throughout GI: COMMON NORMALS: Normal to inspection, nondistended, normoactive bowel sounds present, Soft to palpation, non-tender, No hepatosplenomegaly present and no masses AUSCULTATION: Yes normoactive bowel sounds PALPATION: Yes Soft to palpation and Yes No hepatosplenomegaly present RECTAL EXAM: deferred Extremity: COMMON NORMALS: normal to inspection NARRATIVE EXTREMITY EXAM: tenderness over the left hip pain with any rom, distal pulses intact LEFT LOWER EXTREMITY: Yes hip joint (Swelling continues to improve. There is no significant ecchymosis. There is no drainage.) Left hip: Yes inspection (The thigh is soft and nontender.), Yes palpation (Minimal tenderness to palpation.), Yes ROM (Not assessed) and Yes neurovascular exam (Intact distal to the surgical site without evidence of DVT.) OTHER: Inability to move left lower extremity due to severe pain. Dorsalis pedis pulse 2+ bilaterally equal,No lower extremity edema.Left lower extremity range of motion limited due to pain. Neuro: COMMON NORMALS: patient oriented x3, moves all extremities and no focal motor deficits SENSORIUM/ORIENTATION: Yes alert Psych: COMMON NORMALS: mental status grossly normal, Normal thought process present and cooperative APPEARANCE: Yes grossly normal ATTITUDE: Yes calm and Yes engaged THOUGHT PROCESS: Normal thought process present ATTENTION/CONCENTRATION: Yes attention grossly intact Skin: COMMON NORMALS: no rashes or lesions noted and no wounds GENERAL SKIN EXAM: no rashes or lesions noted Urinary Catheter Management^: Morales: Cath Placed During This Visit: yes Reason for Continuing Indwelling Catheter: Acute Urinary Retention or Obstruction Urinary Catheter Date of Insertion: 03/25/20 Urinary Catheter Time of Insertion: 15:15 Data : 03/29/20 05:09 03/30/20 04:57 A&P Assessment and plan (1) TERESA (acute kidney injury): Status: Acute (2) UTI (urinary tract infection): Status: Acute (3) Hip fracture: Status: Acute (4) HTN (hypertension): Status: Acute (5) CVA (cerebral vascular accident): Continue with aspirin and statin Status: Acute (6) Atrial fibrillation: Currently rate controlled Continue Aspirin 325 mg oral daily Status: Acute Additional A&P Information Subcapital fracture of the left femur: Post-ORIF. Physical therapy, pain medications, anticoagulation as per Dr. Marti. Patient is working well with physical therapy. Hemoglobin has stable. TERESA on chronic kidney disease: Looks like baseline creatinine is around 1.6. Creatinine trending down to baseline today. Medical reconciliation done for nephrotoxic drugs. Continue holding lisinopril. Continue monitoring BMP daily. No electrolyte abnormality. Hypertension: Blood pressure on the higher side. Goal blood pressure less than 140/90 mmHg. Patient is already on hydralazine 50 every 8 hourly and metoprolol 50 every 12 hourly. Add amlodipine 10 mg. Continue to monitor blood pressures and check for orthostatic hypotension as patient is on multiple antihypertensives now. UTI: Patient is on day 5 of ceftriaxone. Last day of treatment today. Atrial fibrillation: Rate controlled. Continue with home dose of metoprolol. Continue with home dose of aspirin 325 mg. Patient is not on any anticoagulation because of advanced age and recurrent fall. CODE STATUS: Full code DVT PPX: Aspirin 325 mg daily as per orthopedic. Dc planing: Monitor blood pressures today. Most likely can be discharged tomorrow home with home health for further physical therapy. Attestations Medical Necessity Statement*: Uncontrolled hypertension, post operative care for ORIF, TERESA on CKD Time Spent in Patient Care: Greater than 35 minutes (>than 50% of time spent in counselling and/or direct pt care on unit) . Coding Level of Care Code Acute Head Animal Keeper for [facility] Fwd Diagnoses TERESA (acute kidney injury) N17.9 UTI (urinary tract infection) N39.0 Hip fracture S72.009A HTN (hypertension) I10 CVA (cerebral vascular accident) I63.9 Atrial fibrillation I48.91
[2020-03-30] MEDS: amlodipine 10 mg Tablet PO (15:19)
--- NOTE | 2020-03-30 15:58 | PC.NURSE ---
notified Dr Jackson that patient has black stools coffee ground. vd order for Hgb at 1800, collect occult stool and c-diff. display card writer put orders in.
[2020-03-30 17:56] LABS: Hematocrit 28.2 % (37.0-47.0); Hemoglobin 8.8 g/dL (11.5-15.3)
[2020-03-31] VITALS (7 sets, daily range): BP systolic 156–192; BP diastolic 66–74; PULSE 66–78; RESP 16–20; TEMP 36.6–36.9; O2SAT 92–93
[2020-03-31] MEDS: acetaminophen 500 mg Tablet 1000 MG PO ×2 (05:02→12:46)
[2020-03-31] MEDS: hyDRALAzine 50 mg Tablet PO ×2 (05:02→12:46)
[2020-03-31] MEDS: multivitamin therapeutic Tablet 1 TAB PO (08:28)
[2020-03-31] MEDS: amlodipine 10 mg Tablet PO (08:29)
[2020-03-31] MEDS: metoprolol tartrate 50 mg Tablet PO (08:29)
[2020-03-31] MEDS: levothyroxine 50 mcg Tablet PO (08:29)
[2020-03-31] MEDS: cholecalciferol (vitamin D3) 5,000 unit Tablet 5000 UNIT PO (08:29)
[2020-03-31] MEDS: iron polysaccharide complex 150 mg Capsule PO (08:29)
[2020-03-31] MEDS: aspirin 325 mg EC Tablet PO (08:29)
[2020-03-31] MEDS: calcium carbonate 500 mg Chew Tablet 1000 MG PO (08:29)
[2020-03-31] MEDS: amiodarone 200 mg Tablet 100 MG PO (08:30)
[2020-03-31] MEDS: chlorhexidine gluconate 0.12% Btl 473 mL 30 ML MUCOUS MEM (08:33)
[2020-03-31] MEDS: mupirocin oint 22 gm 1 APPLIC NASAL (08:33)
--- NOTE | 2020-03-31 10:17 | P.PN_ITS ---
Subjective Subjective: Interval history: Patient continues to do well. She states she is ready for discharge to home. She has had some issues with stool and also with H&H. This is being evaluated by the hospitalist team. Medications: Reviewed: Yes Vitals/I&O/Wt Last Vital Signs Temp 98.1 F 03/31/20 07:17 Pulse 78 03/31/20 07:17 Resp 16 03/31/20 07:17 BP 184/66 03/31/20 07:17 Pulse Ox 92 03/31/20 07:17 03/30/20 03/31/20 03/31/20 22:59 06:59 14:59 Intake Total 600 / 980 60 / 60 Output Total 400 / 400 1000 / 1400 Balance 200 / 580 -1000 / -420 60 / 60 Physical Exam Const: COMMON NORMALS: no acute distress, average body habitus, patient oriented x3 and alert GENERAL APPEARANCE: cooperative and comfortable ORIENTATION/CONSCIOUSNESS: Yes awake HENMT: COMMON NORMALS: normocephalic; head/scalp not atraumatic HEAD & SCALP: normocephalic; not atraumatic FACE & SINUS: other (Patient has ecchymosis about the left eye secondary to her fall.) Chest: COMMONS NORMALS: normal inspection of the chest Resp: COMMON NORMALS: normal respiratory effort EFFORT & INSPECTION: Yes able to speak in complete sentences and Yes symmetric chest movement Extremity: LEFT LOWER EXTREMITY: Yes hip joint Left hip: Yes inspection (Thigh is soft and nontender. Dressing is dry and intact.), Yes palpation (There is minimal to no tenderness to palpation.) and Yes neurovascular exam (Intact distal to the surgical site with no evidence of DVT.) Neuro: COMMON NORMALS: patient oriented x3 SENSORIUM/ORIENTATION: Yes alert Psych: COMMON NORMALS: mental status grossly normal APPEARANCE: Yes grossly normal ATTITUDE: Yes calm and Yes engaged ATTENTION/CONCENTRATION: Yes attention grossly intact Skin: COMMON NORMALS: no rashes or lesions noted GENERAL SKIN EXAM: no rashes or lesions noted Urinary Catheter Management^: Morales: Cath Placed During This Visit: yes Reason for Continuing Indwelling Catheter: Other Urinary Catheter Date of Insertion: 03/25/20 Urinary Catheter Time of Insertion: 15:15 Data : 03/30/20 17:48 03/30/20 04:57 Micro: Microbiology 03/30/20 16:50 Stool Lactoferrin - Final Stool A&P Assessment and plan (1) Subcapital fracture of left hip: Patient underwent an uneventful bipolar hip arthroplasty. She complains of minimal to no discomfort in the hip. Her other bruises and abrasions from her fall are resolving. From an orthopedic perspective, the patient is ready for discharge to home with home health. When her medical issues have resolved to the satisfaction of the hospitalist team, she will be discharged as noted. She is to follow-up with me in approximately 2-3 weeks. Status: Acute Qualifiers: Encounter type: initial encounter Fracture type: closed Qualified Code(s): S72.012A - Unspecified intracapsular fracture of left femur, initial encounter for closed fracture Attestations Medical Necessity Statement*: Per hospitalist team, patient continues to have monitoring of her medical issues including hypertension and bleeding. Coding Level of Care Code Acute Direct Sales Representative for Jose Mckeon Diagnoses Subcapital fracture of left hip S72.012A Encounter type: initial encounter Fracture type: closed
--- NOTE | 2020-03-31 10:48 | PM.DCS ---
Discharge Providers Date of Admission: 03/25/20 14:00 Date of Discharge: March 31, 2020 Attending Provider at Admission: Omi Cheung MD Attending Provider at Discharge: Micah Jackson MD Primary Care Provider: Jalyn Salas MD Diagnoses at Discharge Discharge Diagnosis (1) Subcapital fracture of left hip: Status: Acute Qualifiers: Encounter type: initial encounter Fracture type: closed Qualified Code(s): S72.012A - Unspecified intracapsular fracture of left femur, initial encounter for closed fracture Reason for Visit Reason for Visit: FALL, HEAD AND HIP INJURY Hospital Course Discharge Summary: Rebecca Duke is a 84 year old female with past medical history of A. fib, hypertension, CVA, CKD, came in with chief complaint of left hip pain after a fall, post fall, she is complaining of severe left hip pain, unable to bear weight, she is also complaining of pain on the left forehead and mild neck. She has denied any, chest pain nausea vomiting, shortness of breath, fever,cough. History taking has been difficult as the patient is in pain right now. She was worked up in the ED for fall. Patient was admitted to the hospital and orthopedics was consulted. She underwent bipolar hip arthroplasty on March 26. She tolerated the procedure well. Her postoperative care was uneventful other other than her developing mild TERESA which resolved with IV hydration. She also had a UTI on admission for which she got ceftriaxone and finished a 5-day course. TERESA on admission was most likely secondary to NSAIDs as an outpatient along with poor oral intake. Her hemoglobin trended down mildly postoperatively but she did not require any blood transfusion. Stool for occult blood was negative. Postoperatively she was found to be having high blood pressures. Patient stated she is been having high blood pressures at home as well. Her antihypertensives were adjusted. Currently she is on hydralazine 50 every 8 hourly, lisinopril 20 mg, amlodipine 10 mg. She is to follow-up with her primary care provider within next 1 week for further adjustment of antihypertensives. She is been discharged hemodynamically stable condition on oral iron supplementation. Physical Exam Narrative: EXAM NARRATIVE: COMMON NORMALS: no acute distress, average body habitus, patient oriented x3 and alert GENERAL APPEARANCE: cooperative and comfortable ORIENTATION/CONSCIOUSNESS: Yes awake [facility] COMMON NORMALS: normocephalic; head/scalp not atraumatic HEAD & SCALP: normocephalic; not atraumatic FACE & SINUS: other (Patient has ecchymosis about the left eye secondary to her fall.) Chest COMMONS NORMALS: normal inspection of the chest Resp COMMON NORMALS: normal respiratory effort EFFORT & INSPECTION: Yes able to speak in complete sentences and Yes symmetric chest movement Extremity LEFT LOWER EXTREMITY: Yes hip joint (The hip remains soft and nontender to palpation. There is minimal to no ecchymosis. There is minimal swelling. She is neurologically intact distally. Range of motion is not evaluated. There are no complications noted, and there is no evidence of DVT.) Neuro COMMON NORMALS: patient oriented x3 SENSORIUM/ORIENTATION: Yes alert Psych COMMON NORMALS: mental status grossly darin Urinary Catheter Management^: Morales: Cath Placed During This Visit: yes, but has since been removed by the nurse Reason for Continuing Indwelling Catheter: Decision to DC Catheter Urinary Catheter Date of Insertion: 03/25/20 Urinary Catheter Time of Insertion: 15:15 Date Urinary Catheter Removed: 03/31/20 Time Urinary Catheter Discontinued: 10:32 Discharge Data Data Completed and Pending: Completed Studies During Hospitalization Category Date Time Status CT cervical spin wo con* [id number] Urge nt Cat Scan 03/25/20 10:[address] head wo con* 7 0450 Urgent Cat Scan 03/25/20 10:48 Completed XR chest 1V yonas ble [id number] Urgent Exams 03/25/20 10:48 Completed XR hip LT 2-3V wo /w pel* [id number] Stat Exams 03/25/20 10:48 Completed XR pelvis 1-2V* 7 2170 Routine Exams 03/26/20 15:40 Completed US renal BI* [id number] Routine Ultrasound 03/28/20 04:57 Completed Pending at discharge Category Date Time Status Enteric Bacterial Panel by PCR Rout ine Lab 03/30/20 16:50 Results Enteric Parasite Panel by PCR Routi ne Lab 03/30/20 16:50 Results Immunochemical Fe trinidad OCB Routine Lab 03/31/20 04:30 Received Lactoferrin Routi ne Lab 03/30/20 16:50 Results Labs from last 24 hours 03/30/20 17:48 Hgb 8.8 L Hct 28.2 L Vitals: Last Vital Signs Temp 98.1 F 03/31/20 10:37 Pulse 66 03/31/20 10:37 Resp 16 03/31/20 10:37 BP 156/67 03/31/20 10:37 Pulse Ox 93 03/31/20 10:37 Discharge Plan Discharge Patient Disposition: Home Health Service Condition: Stable Prescriptions: New hydrocodone-acetaminophen 5-325 mg Tablet 1 tab PO Q4H PRN (Reason: Moderate To Severe Pain) Qty: 30 RF: 0 acetaminophen 500 mg Tablet 1,000 mg PO Q8H 15 Days Qty: 90 RF: 0 Ferrex 150 150 mg iron Capsule 150 mg PO BIDWM Qty: 60 RF: 0 amlodipine 10 mg Tablet 10 mg PO DAILY 30 Days Qty: 30 RF: 0 calcium carbonate 200 mg calcium (500 mg) Tablet,Chewable 1,000 mg PO BID Qty: 30 RF: 0 hydralazine 50 mg Tablet 50 mg PO Q8H Qty: 90 RF: 0 Thera 400 mcg Tablet 1 tab PO DAILY Qty: 30 RF: 0 Continued metoprolol tartrate 50 mg tablet 50 mg PO BID RF: 0 cholecalciferol (vitamin D3) 125 mcg (5,000 unit) capsule 125 mcg PO DAILY RF: 0 levothyroxine 50 mcg tablet 50 mcg PO DAILY RF: 0 amiodarone 200 mg tablet 100 mg PO DAILY RF: 0 aspirin 325 mg Tablet 325 mg PO DAILY RF: 0 lisinopril 20 mg Tablet 20 mg PO DAILY RF: 0 Discharge Orders: Discharge Order (Routine); Ordered 03/28/20 Ordered By: Shirley Marti Other Ambulatory Orders: DME: Walker (Order) Location: None Selected Ordered By: Shirley Marti Referrals: Jalyn Salas MD [Primary Care Provider] - 04/06/20 9:00 am Shirley Marti MD [Physician] - 04/09/20 9:30 am Discharge Diet: Usual diet and Cardiac Discharge Activity: Increase activity as tolerated, Limit activity as instructed, Use walker/crutches as instructed and As per PT/OT instructions Patient Instructions: Iron Supplements (By mouth), Hydrocodone/Acetaminophen (By mouth), Hydralazine (By mouth), Amlodipine (By mouth), Open Reduction and Internal Fixation of a Hip Fracture (DC) Activity Restrictions/Additional Instructions: Maintain dressing to left hip. Posterior hip precautions. Weight-bear as tolerated. Ice to hip. Recheck CBC and CMP in 1 week with PCP. BP check in 1 week Discharge Attestations Time Spent in Discharge Care*: greater than 30 min Specific Discharge Activities: Specific discharge activities: educating patient, educating and/or supporting family/caregiver, discussing with pcp/other providers, discussing with child welfare caseworker/social workers/dc planners, documenting/other paperwork and evaluating patient/reviewing data Status at Discharge: Cognitive status at discharge: cognitively intact, Behavioral status at discharge: cooperative, Functional status at discharge: independent ambulation Overall status at discharge: patient is progressing back to baseline Quality Metrics Clinical Quality Measures During this hospital stay, did patient experience: None Coding Level of Care Code Acute Senior Accountant Analyst for Jose Mckeon Diagnoses Subcapital fracture of left hip S72.012A Encounter type: initial encounter Fracture type: closed
== END 2020-03-31 16:29 | disposition home health service (06) | DRG 522 ==
LOC: ER 12:18 → MEDSURG 14:23
PROVIDERS: Emergency Medicine; Specialist; Admitting Provider Internal Medicine; Family Provider Internal Medicine; PCP Internal Medicine; Visit Provider Student in an Organized Health Care Education/Training Program
PROC: 0SRS0JZ Replacement of Left Hip Joint, Femoral Surface with Synthetic Substitute, Open Approach (ICD-10-PCS; CPT 29860; principal; 2020-03-26 13:00)
DX: S72.012A Unspecified intracapsular fracture of left femur, initial encounter for closed fracture (principal); N17.9 Acute kidney failure, unspecified; N39.0 Urinary tract infection, site not specified; W19.XXXA Unspecified fall, initial encounter; I48.91 Unspecified atrial fibrillation; I12.9 Hypertensive chronic kidney disease with stage 1 through stage 4 chronic kidney disease, or unspecified chronic kidney disease; N18.1 Chronic kidney disease, stage 1; Z86.73 Personal history of transient ischemic attack (TIA), and cerebral infarction without residual deficits; Z79.01 Long term (current) use of anticoagulants; E78.5 Hyperlipidemia, unspecified; E86.0 Dehydration
CPT/HCPCS: 12345; 36415; 51702; 70450; 71045; 72125; 72170; 73502; 76770; 80048; 80053; 81001; 82274; 83630; 83735; 84443; 85014; 85018; 85025; 85610; 85730; 87077; 87086; 87186; 87493; 87506; 96375; 97116; 97161; 97166; 97530; 97535; 99283; C1776; J0131; J0360; J0690; J0696; J1100; J2270; J2405; J2704; J2710; J3010; J3370; J3490; J7030; J7040; J7050

== ENCOUNTER 2020-04-08 12:19 | Outpatient (CLI) | payer MEDICARE, OTHER, SELFPAY ==
[2020-04-08 12:39] LABS: Basophils # 0.1 10^3/uL (0.0-0.1); Basophils % 0.7 %; Eosinophils # 0.3 10^3/uL (0.0-0.8); Eosinophils % 2.4 %; Hematocrit 28.1 % (37.0-47.0); Hemoglobin 8.8 g/dL (11.5-15.3); Lymphocytes # 1.7 10^3/uL (0.8-4.8); Mean Corpuscular HGB Conc 31.3 g/dL (30.0-36.0); Mean Corpuscular Hemoglobin 29.5 pg (28.0-34.0); Mean Corpuscular Volume 94.3 fL (81-99); Mean Platelet Volume 11.5 fL (7.4-10.4); Monocytes # 0.6 10^3/uL (0.2-0.9); Monocytes % 5.4 %; Neutrophils # 9.06 10^3/uL (1.8-7.7); Neutrophils % 77.1 %; Nucleated Red Blood Cells % 0 %; Platelet Count 411 10^3/cmm (130-400); Red Blood Count 2.98 10^6/uL (4.1-5.3); Red Cell Distribution Width 14.2 % (12.1-15.1); White Blood Count 11.8 10^3/uL (4.0-10.0)
[2020-04-08 13:10] LABS: Alanine Aminotransferase 11 U/L (0-33); Albumin Level 3.4 g/dL (3.5-5.2); Alkaline Phosphatase 75 IU/L (35-105); Chloride 103 mmol/L (98-107); Sodium 139 mmol/L (136-145)
[2020-04-08 13:40] LABS: Blood Urea Nitrogen 23 mg/dL (8-23); Calcium 8.9 mg/dL (8.5-10.5); Carbon Dioxide 25 mmol/L (22-29); Globulin 3.1 g/dL (1.3-4.6); Glucose 102 mg/dL (65-115); Osmolality Calculated 292 mOsm/kg (285-295); Total Bilirubin 0.2 mg/dL (0.15-1.2); Total Protein 6.5 g/dL (6.6-8.7)
[2020-04-08 13:53] LABS: Aspartate Amino Transferase 22 U/L (0-32)
== END 2020-04-08 12:20 | disposition home or self-care (01) ==
LOC: LAB 12:22
PROVIDERS: PCP Internal Medicine; Visit Provider Internal Medicine
DX: S72.92XA Unspecified fracture of left femur, initial encounter for closed fracture (principal); X58.XXXA Exposure to other specified factors, initial encounter; N18.1 Chronic kidney disease, stage 1
CPT/HCPCS: 80053; 85025

== ENCOUNTER → 2020-04-09 10:27 | Outpatient (BNVA) | payer MEDICARE, OTHER, SELFPAY | PROVIDERS: PCP Internal Medicine; Visit Provider Specialist | DX: S72.009A Fracture of unspecified part of neck of unspecified femur, initial encounter for closed fracture (principal); Z96.642 Presence of left artificial hip joint | CPT/HCPCS: 73502 ==

== ENCOUNTER → 2020-05-06 08:17 | Outpatient (BNVA) | payer MEDICARE, OTHER, SELFPAY | PROVIDERS: PCP Internal Medicine; Visit Provider Specialist | DX: S72.012A Unspecified intracapsular fracture of left femur, initial encounter for closed fracture (principal); Z96.642 Presence of left artificial hip joint | CPT/HCPCS: 73502 ==

== ENCOUNTER → 2022-01-10 11:56 | Outpatient (BNVA) | payer MEDICARE, OTHER, SELFPAY | PROVIDERS: PCP Internal Medicine; Visit Provider Internal Medicine Cardiovascular Disease | DX: I12.9 Hypertensive chronic kidney disease with stage 1 through stage 4 chronic kidney disease, or unspecified chronic kidney disease (principal); N18.1 Chronic kidney disease, stage 1; E78.5 Hyperlipidemia, unspecified; Z86.73 Personal history of transient ischemic attack (TIA), and cerebral infarction without residual deficits; I48.91 Unspecified atrial fibrillation; Z79.01 Long term (current) use of anticoagulants | CPT/HCPCS: 99213 ==

== ENCOUNTER 2022-02-18 13:04 | Inpatient (IN) | payer MEDICARE, OTHER, SELFPAY ==
[2022-02-18] VITALS (11 sets, daily range): BP systolic 81–215; BP diastolic 54–116; PULSE 72–107; RESP 14–20; TEMP 36.6–36.9; O2SAT 86–94; BMI 21.5
--- NOTE | 2022-02-18 13:07 | XR_ITS ---
WS: [email or web address] Exam: XR shoulder RT min 2V* [id number] Date/Time of Exam: 02/18/2022 1:19 PM Reason For Exam: pain/ fall No acute fracture or dislocation. There is arthrosis at the AC joint. Soft tissues are otherwise unre markable. XR/XR shoulder RT min 2V* [id number] IMPRESSION: 1. No fracture or dislocation. 2. Degenerative change in arthrosis at the AC joint.
--- NOTE | 2022-02-18 13:07 | XR_ITS ---
WS: [id number] Exam: XR hip RT 2-3V wo/w pel* [id number] Date/Time of Exam: 02/18/2022 1:19 PM Reason For Exam: fall/pain deformity There is a subcapital fracture of the left hip with coxa vera deformity. There is superior and latera l displacement of the femoral shaft. Moderate DJD of the joint compartment. Soft tissues are unremark able. XR/XR hip RT 2-3V wo/w pel* [id number] IMPRESSION: 1. Displaced subcapital fracture of the right hip.
--- NOTE | 2022-02-18 13:26 | XR_ITS ---
WS: [email or web address] Exam: XR chest 1V portable [id number] Date/Time of Exam: 02/18/2022 1:26 PM Reason For Exam: Fall Comparison 03/25/2020. The heart is enlarged but unchanged in size. There are chronic pulmonary interstitial changes in bot h lungs particularly along the region of the lingula and the right lower lung zone. No acute infiltra kaden are suspected. No pleural effusions. There may be a small hiatal hernia. The mediastinum is promi nent but unchanged in appearance. Bilateral apical pleural thickening. Old fracture deformity of the proximal left humerus. Remaining bony structures are intact. XR/XR chest 1V portable [id number] IMPRESSION: 1. Extensive the chronic pulmonary interstitial changes in both lungs with are as of chronic atelectasis. 2. No acute cardiopulmonary process is suspected. 3. Mild cardiac enlargement unchanged. Possible small hiatal hernia.
--- NOTE | 2022-02-18 13:35 | ECG_ITS ---
[facility] Test Date: 2022-02-18 Pat Name: Rebecca Duke Department: Room: Gender: Female News Content Specialist: : [id number] Requested By: Marlo Mcallister Order Number: [id number] Suzanne MD: Kayode Francois M.D. Measurements Intervals [place] Rate: 72 P: 71 OR: 173 QRS: 44 QRSD: 90 T: 46 QT: 407 QTc: 447 Interpretive Statements SINUS RHYTHM WITH FREQUENT SUPRAVENTRICULAR PREMATURE COMPLEXES MODERATE VOLTAGE CRITERIA FOR LVH, CONSIDER NORMAL VARIANT [MEETS CRITERIA IN ONE OF: R(aVL), S(V1), R(V5), R(V5/V6)+S(V1)] MINIMAL ST DEPRESSION [0.025+ mV ST DEPRESSION] ABNORMAL RHYTHM ECG Compared to ECG 09/13/2016 14:11:14 ST (T wave) deviation now present Electronically Signed On 02-18-2022 15:40:58 CDT by Kayode Francois M.D. [email or web address]
[2022-02-18 13:44] LABS: Basophils # 0.1 10^3/uL (0.0-0.1); Basophils % 0.9 %; Eosinophils # 0.3 10^3/uL (0.0-0.8); Eosinophils % 2.9 %; Hematocrit 31.9 % (37.0-47.0); Hemoglobin 10.2 g/dL (11.5-15.3); Lymphocytes # 2.7 10^3/uL (0.8-4.8); Lymphocytes % 30.1 %; Mean Corpuscular Volume 87.6 fl (81-99); Mean Platelet Volume 12.1 fL (7.4-10.4); Monocytes # 0.5 10^3/uL (0.2-0.9); Monocytes % 5.8 %; Neutrophils # 5.35 10^3/uL (1.8-7.7); Neutrophils % 59.9 %; Nucleated Red Blood Cells % 0 %; Platelet Count 264 10^3/cmm (130-400); Red Blood Count 3.64 10^6/uL (4.1-5.3); Red Cell Distribution Width 15.1 % (12.1-15.1); White Blood Count 8.9 10^3/uL (4.0-10.0)
--- NOTE | 2022-02-18 13:47 | W.ED.FALL ---
HPI - Fall General: Chief Complaint: Fall Stated Complaint: FALL/ HIP PAIN Time Seen by Provider: 02/18/22 13:06 Source: patient Mode of arrival: EMS Limitations: no limitations History of Present Illness: 86-year-old female present emergency room via EMS from home after a ground-level mechanical fall complaining of right hip pain sure right hip is shortened and externally rotated she also complained right shoulder pain. She denies any loss of consciousness or striking her head. She had just eaten prior to her fall and she is not on any anticoagulants. Denies any other injuries. MD complaint: fall Onset (ago): minute(s) Fall from: standing Place fall occurred: home Loss of consciousness: None Prolonged down time: no Symptoms prior to fall: none Context: tripped/slipped Location of injury: pelvis Location of injury - extremities: Right: shoulder Quality: sharp Associated symptoms-after fall: Reports difficulty walking; Denies abdominal pain, chest pain, confusion, headache(s), hematuria, lightheadedness, neck pain, numbness, short of breath, vertigo or weakness Review of Systems Const: Denies: fever(s), chills, body aches, change in appetite, fatigue or malaise ENMT: Denies: throat pain, ear or mastoid pain, nasal discharge or nasal congestion Card: Denies: chest pain or lightheadedness Resp: Denies: dyspnea, productive cough or non-productive cough GI: Denies: abdominal pain : Denies: hematuria Musc: Denies: neck pain Skin/Breast: Denies: rash or pruritus Neuro: Reports: difficulty walking; Denies: headache(s), vertigo or confusion PFS ED PFSH: Medical History Anticoagulant long-term use Atrial fibrillation CKD (chronic kidney disease) stage 1, GFR 90 ml/min or greater CVA (cerebral vascular accident) HTN (hypertension) Hyperlipidemia Family History Father CAD (coronary artery disease) Sister CAD (coronary artery disease) Diabetes Brother Diabetes Other Hypertension Social History Smoking and tobacco status: never smoked Alcohol intake: never Physical Exam Const: COMMON NORMALS: no acute distress GENERAL APPEARANCE: cooperative and comfortable ORIENTATION/CONSCIOUSNESS: Yes awake, Yes oriented to person, Yes oriented to place and Yes oriented to time HENMT: COMMON NORMALS: normocephalic, atraumatic and hearing grossly normal bilaterally HEAD & SCALP: normocephalic and atraumatic Neck/C-Spine: COMMON NORMALS: full ROM and no lymphadenopathy Resp: COMMON NORMALS: normal respiratory effort, No retractions, No use of accessory muscles and clear to auscultation bilaterally AUSCULTATION: clear to auscultation bilaterally Cardio: COMMON NORMALS: regular rate, regular rhythm and No murmurs present (Cardio) RATE: regular rate RHYTHM: regular rhythm GI: COMMON NORMALS: Soft to palpation and No hepatosplenomegaly present AUSCULTATION: Yes normoactive bowel sounds PALPATION: Yes Soft to palpation, No Tenderness to palpation present (GI), No Guarding due to palpation present (GI) and Yes No hepatosplenomegaly present Extremity: COMMON NORMALS: normal to inspection, capillary refill normal, no clubbing, cyanosis or edema, no calf tenderness and no pedal edema Neuro: SENSORIUM/ORIENTATION: Yes oriented to person, Yes oriented to place and Yes oriented to time Skin: COMMON NORMALS: no rashes or lesions noted GENERAL SKIN EXAM: no rashes or lesions noted Course Vital Signs: Vital signs: Vital Signs Temperature 97.8 F 02/18/22 13:10 Pulse Rate 76 02/18/22 13:10 Respiratory Rate 18 02/18/22 13:10 Blood Pressure 215/87 02/18/22 13:10 Pulse Oximetry 94 02/18/22 13:10 Oxygen Delivery Me thod 02/18/22 13:10 MDM - Fall Medical Decision Making Displaced right subtrochanteric hip fracture. Right shoulder normal. Discussed with hospitalist and orthopedics patient admitted anticipate ORIF in a.m. Medical Records I reviewed the patient's medical records. Lab Data I reviewed the patient's lab results. : 02/18/22 13:20 02/18/22 13:20 Radiology Impressions Hip/Pelvis X-Ray 02/18/22 13:07 IMPRESSION: 1. Displaced subcapital fracture of the right hip. Shoulder X-Ray 02/18/22 13:07 IMPRESSION: 1. No fracture or dislocation. 2. Degenerative change in arthrosis at the AC joint. Chest X-Ray 02/18/22 13:26 IMPRESSION: 1. Extensive the chronic pulmonary interstitial changes in both lungs with areas of chronic atelectasis. 2. No acute cardiopulmonary process is suspected. 3. Mild cardiac enlargement unchanged. Possible small hiatal hernia. Laboratory Results WBC 8.9 10^3/uL (4.0-10.0) 02/18/22 13:20 RBC 3.64 10^6/uL (4.1-5.3) L 02/18/22 13:20 Hgb 10.2 g/dL (11.5-15.3) L 02/18/22 13:20 Hct 31.9 % (37.0-47.0) L 02/18/22 13:20 MCV 87.6 fl (81-99) 02/18/22 13:20 MCH 28.0 pg (28.0-34.0) 02/18/22 13:20 MCHC 32.0 g/dL (30.0-36.0) 02/18/22 13:20 RDW 15.1 % (12.1-15.1) 02/18/22 13:20 Plt Count 264 10^3/cmm (130-400) 02/18/22 13:20 MPV 12.1 fL (7.4-10.4) H 02/18/22 13:20 Neut % (Auto) 59.9 % 02/18/22 13:20 Lymph % (Auto) 30.1 % 02/18/22 13:20 [place] % (Auto) 5.8 % 02/18/22 13:20 Eos % (Auto) 2.9 % 02/18/22 13:20 Baso % (Auto) 0.9 % 02/18/22 13:20 Neut # (Auto) 5.35 10^3/uL (1.8-7.7) 02/18/22 13:20 Lymph # (Auto) 2.7 10^3/uL (0.8-4.8) 02/18/22 13:20 [place] # (Auto) 0.5 10^3/uL (0.2-0.9) 02/18/22 13:20 Eos # (Auto) 0.3 10^3/uL (0.0-0.8) 02/18/22 13:20 Baso # (Auto) 0.1 10^3/uL (0.0-0.1) 02/18/22 13:20 Nucleated RBC % (auto) 0 % 02/18/22 13:20 Nucleated RBCs # 0.0 /100WBC 02/18/22 13:20 Discharge Plan Discharge Patient Disposition: Admitted As Inpatient Clinical Impression: Closed subtrochanteric fracture of right femur, History of hemiarthroplasty of left hip, Atrial fibrillation, HTN (hypertension), Hyperlipidemia Condition: Stable Coding Level of Care Code ED Sports Centre Manager for Jose cMkeon
[2022-02-18 14:02] LABS: INR 0.96 (0.8-1.2)
[2022-02-18 14:03] LABS: Partial Thromboplastin Time 24.9 SECONDS (23.9-36.7)
[2022-02-18 14:06] LABS: Alanine Aminotransferase 13 U/L (0-33); Albumin Level 3.6 g/dL (3.5-5.2); Alkaline Phosphatase 65 U/L (35-105); Anion Gap 16.4 (5-19); Aspartate Amino Transferase 23 U/L (0-32); Blood Urea Nitrogen 34 mg/dL (8-23); Calcium 9.4 mg/dL (8.5-10.5); Carbon Dioxide 23 mmol/L (22-29); Chloride 104 mmol/L (98-107); Globulin 3.1 g/dL (1.3-4.6); Glucose 128 mg/dL (65-115); Osmolality Calculated 297 mOsm/kg (285-295); Potassium 4.4 mmol/L (3.5-5.1); Sodium 139 mmol/L (136-145); Total Bilirubin 0.2 mg/dL (0.15-1.2); Total Protein 6.7 g/dL (6.6-8.7)
--- NOTE | 2022-02-18 14:13 | XR_ITS ---
WS: [id number] Exam: XR pelvis 1-2V* [id number] Date/Time of Exam: 02/18/2022 2:13 PM Reason For Exam: right hip fx No acute pelvic fracture. Acute displaced subcapital fracture of the right hip noted. The pelvis is o steopenic. Left-sided total hip replacement intact as visualized. XR/XR pelvis 1-2V* [id number] IMPRESSION: 1. No acute pelvic fracture noted. 2. Acute displaced right hip subcapital fracture.
--- NOTE | 2022-02-18 14:13 | XR_ITS ---
WS: [email or web address] Exam: XR femur RT min 2V* [id number] Date/Time of Exam: 02/18/2022 2:13 PM Reason For Exam: right hip fx Displaced subcapital fracture of the right hip noted. The remaining aspects of the femur are intact. Degenerative changes at the knee and chondrocalcinosis. Soft tissues are unremarkable. XR/XR femur RT min 2V* [id number] IMPRESSION: 1. Subcapital fracture of the right hip. No other fracture of the femur noted.
--- NOTE | 2022-02-18 14:13 | XR_ITS ---
WS: [email or web address] Exam: XR knee RT 1-2V [id number] Date/Time of Exam: 02/18/2022 2:13 PM Reason For Exam: right femur fx No fracture or dislocation. Moderate degenerative narrowing of the medial joint compartment. Chondroc alcinosis of the medial and lateral menisci. No significant joint effusion. XR/XR knee RT 1-2V [id number] IMPRESSION: 1. Degenerative change and chondrocalcinosis. No fracture or dislocation.
[2022-02-18 14:18] LABS: Glucose Urine UA Norm (Normal); Ketones Urine Negative (Negative); Protein Urine 3+ (Negative); Specific Gravity, Urine 1.015 (1.005-1.030); Urine Appearance Clear (CLEAR); Urine Color Yellow (Yellow); pH Urine 6 (5-7)
[2022-02-18 14:19] LABS: Add Urine Culture? Yes; Add Urine Microscopic? YES; Bacteria Urine 2+ /hpf; Bilirubin Urine Neg (Negative); Blood Urine Trace (Negative); Leukocyte Esterase Urine Trace (Negative); Nitrate Urine Positive (Negative); RBC Urine 0-4 /hpf (0-2); Squamous Epithelial Cell Urine 0-4 /hpf (0-5); Urobilinogen Urine Norm (Negative); WBC Urine 25-40 /hpf (0-5)
--- NOTE | 2022-02-18 14:23 | PM.HP ---
Providers/Chief Complaint Primary Care Provider: Jalyn Salas MD Chief Complaint: FALL/ HIP PAIN History of Present Illness 86-year-old lady with history of atrial fibrillation, CVA, CAD, CKD, HTN, HLD not on anticoagulation after warfarin was stopped in the past with multiple falls, on aspirin, presented to ER after she tripped and fell subsequently with pain in the right hip with finding of display subcapital fracture of the right hip. Right shoulder was evaluated due to pain in her shoulder as well with finding of no fracture or dislocation, with degenerative change of AC joint on x-ray. Chest x-ray with extensive chronic pulmonary interstitial changes bilaterally, areas of chronic atelectasis. Mild cardiac enlargement. Possible small hiatal hernia. She is currently living with her sister. She states that she fell down in the living room onto hardwood floor. She denies any objects being on the floor. She states that she has issues with her bowel and sometimes both due to a stroke she had had years ago as well as due to history of ear infections, intermittently gets dizzy . When asked if she uses a walker or cane, she states both, intermittently, but today did not use either. She states otherwise has been at baseline health. Denies getting short of breath when ambulating or with exertion. States she has been taking all her medications. Blood pressure is elevated in ER, states intermittently measures it, most recently at home was 146/66. She has been in quite a bit of pain in her right hip especially when she moves it. She states she has not missed any of her medications. With regards to CODE STATUS, in case of cardiopulmonary arrest, would not want to have CPR, would rather let it go and be kept comfortable. In case of respiratory failure need for mechanical ventilation transiently would be agreeable. Review of Systems Const: Denies: fever(s), chills, body aches or malaise Eyes: Denies: change in vision, eye discomfort or eye redness ENMT: Denies: throat pain, oral sores or ear or mastoid pain Card: Denies: chest pain, edema, pre-syncope or dyspnea on exertion Resp: Denies: dyspnea, productive cough, change in phlegm color or hemoptysis GI: Denies: abdominal pain, nausea, vomiting, diarrhea, constipation, hematochezia or melena : Denies: flank pain, urinary frequency or hematuria Musc: Reports: joint pain (R hip, L shoulder); Denies: back pain, joint swelling or joint redness Skin/Breast: Denies: rash or new lesions Neuro: Reports: dizziness; Denies: headache(s), numbness in extremities, weakness in extremities, confusion or seizure-like activity Endo: Denies: polyuria or polydipsia Karan/Lymph: Denies: easy bleeding or tender lymph nodes All/Imm: Denies: urticaria or tongue swelling Medications/Allergies Home Medications Medication Instructions Recorded Confirmed Last Taken Type cholecalciferol (vitamin D3) 125 125 mcg PO DAILY 12/18/19 02/18/22 02/18/22 History mcg (5,000 unit) capsule levothyroxine 50 mcg tablet 50 mcg PO DAILY 12/18/19 02/18/22 02/18/22 History metoprolol tartrate 50 mg tablet 50 mg PO BID 12/18/19 02/18/22 02/18/22 History aspirin 325 mg tablet 325 mg PO DAILY 03/25/20 02/18/22 02/18/22 History lisinopril 20 mg tablet 20 mg PO DAILY 03/25/20 02/18/22 02/18/22 History amiodarone 200 mg tablet 100 mg PO DAILY 07/15/20 02/18/22 02/18/22 History ferrous sulfate 325 mg (65 mg 325 mg PO DAILY 01/11/21 02/18/22 02/18/22 History iron) tablet vitamin B complex (B 1 tab PO DAILY 01/10/22 02/18/22 02/18/22 History Complex-Vitamin B12) Allergies Allergy/AdvReac Type Severity Reaction Status Date / Time Nitrofuran Analogues Allergy Unknown Unknown Verified 02/18/22 14:16 PFSH Acute PFSH: Medical History Anticoagulant long-term use Atrial fibrillation CKD (chronic kidney disease) stage 1, GFR 90 ml/min or greater CVA (cerebral vascular accident) HTN (hypertension) Hyperlipidemia Surgical History History of hemiarthroplasty of left hip Family History Father CAD (coronary artery disease) Sister CAD (coronary artery disease) Diabetes Brother Diabetes Other Hypertension Social History Smoking and tobacco status: never smoked Alcohol intake: never Substance/Drug Use: never Marital status: / Vitals/I&O/Wt Last Vital Signs Temp 97.8 F 02/18/22 13:10 Pulse 94 02/18/22 13:46 Resp 18 02/18/22 13:46 BP 198/116 02/18/22 13:46 Pulse Ox 92 02/18/22 13:46 O2 Del Method 02/18/22 13:46 Weight last 48 hrs Weight 53.524 kg Physical Exam Const: COMMON NORMALS: patient oriented x3 and alert GENERAL APPEARANCE: cooperative ORIENTATION/CONSCIOUSNESS: Yes awake HENMT: COMMON NORMALS: oropharynx normal Neck/C-Spine: COMMON NORMALS: no JVD Resp: COMMON NORMALS: normal respiratory effort and clear to auscultation bilaterally AUSCULTATION: clear to auscultation bilaterally Cardio: COMMON NORMALS: no JVD, regular rhythm, S1 normal heart sound present, S2 normal heart sound present and No murmurs present (Cardio) RHYTHM: regular rhythm HEART SOUNDS: S1 normal heart sound present and S2 normal heart sound present GI: COMMON NORMALS: Normal to inspection, nondistended, normoactive bowel sounds present, Soft to palpation and non-tender PALPATION: Yes Soft to palpation Extremity: COMMON NORMALS: no joint enlargement and no pedal edema NARRATIVE EXTREMITY EXAM: Shortened, everted RLE Neuro: COMMON NORMALS: patient oriented x3 and moves all extremities SENSORIUM/ORIENTATION: Yes alert Skin: COMMON NORMALS: no rashes or lesions noted GENERAL SKIN EXAM: no rashes or lesions noted Urinary Catheter Management: Morales: Cath Placed During This Visit: yes Urinary Catheter Date of Insertion: 02/18/22 Urinary Catheter Time of Insertion: 14:00 Data : 02/18/22 13:20 02/18/22 13:20 A&P Assessment and plan (1) Closed subtrochanteric fracture of right femur: Acute displaced right hip subcapital fracture. Reports has been having some gait/balance issues after all stroke as well as after remote ear infection. At times uses her walker and cane, did not use them today. Is not sure exactly how she fell but feels her feet did not cooperate well with what she needed to do. Does appear to have urinary tract infection which may have contributed. She would like to pursue surgical intervention to restore mobility. She reports otherwise has been at baseline state of health. Has not had any chest pain or pressure. Has no shortness of breath with exertion usually and no change recently. She is hypertensive, suggested as home blood pressures usually better controlled, although may have episodic hypertension as does have some suggestion of LVH by EKG. EKG otherwise with some nonspecific changes. Has history of CHF, but no signs of exacerbation. Last echocardiogram in 2017 with normal ejection fraction, grade 1 diastolic dysfunction, no mitral or aortic stenosis. Trace MVR, no AVR. Moderate TVR. Mild pulmonary hypertension. Anticipated with pain control her blood pressure should improve. We will continue metoprolol, hold lisinopril preoperatively to avoid hypotension. Will obtain a troponin level for baseline. Elevated surgical risk of cardiac complication 3.5-3.9%, serious complication 16.8-17%. Elevated risk of around 10%. Elevated risk of pneumonia, UTI, discharged to nursing facility. Elevated risk of postoperative delirium around 50%. Unfortunately there is not much we can do to modify these risks. She is also very much interested in having a chance to regain mobility in her current lifestyle. Delay of surgery which also further increased risk of adverse outcome down the road. Unfortunately nonsurgical option would unfortunately likelybe fraught with poor outcome. As she has been having some memory difficulties recently, discussed surgical risks, as well as CODE STATUS wishes with her sister as well. She is agreeable as well and understands the risks. Status: Acute (2) UTI (urinary tract infection): Staff tract, follow-up urine culture. Status: Acute (3) HTN (hypertension): Initial BP 215/87 - 198/104. Pain control. Continue metoprolol. Reassess blood pressure. Status: Acute Plan A. fib: On aspirin, not on anticoagulation due to history of prior falls. Metoprolol. Amiodarone. CKD: Creatinine appears close to her perhaps slightly worse than baseline. Last creatinine from 2019 was 1.5. Hold lisinopril. Avoid NSAIDs, other potential nephrotoxic medications. Reassess renal function. Hypothyroidism: Levothyroxine. HLD Attestations Medical Necessity Statement*: Admission of over 2 midnights is anticipated for assessment and management of displaced right hip fracture and lady with multiple underlying comorbidities and advanced age. Coding Level of Care Code Acute Automatic Centrifugal Station Operator for g Fwd Exam Comprehensive Diagnoses Closed subtrochanteric fracture of right femur S72.21XA UTI (urinary tract infection) N39.0 HTN (hypertension) I10
[2022-02-18] MEDS: cefTRIAXone 1,000 MG in sodium chloride 0.9% (plus) 50 ML 100 MG IV (15:50)
[2022-02-18 15:51] LABS: Troponin T (5th) Once 22 ng/L (0-10)
--- NOTE | 2022-02-18 16:11 | PM.CONSULT ---
Providers/Reason For Consult Consulting Physician/Specialty*: Rubin Hill DO/orthopedic surgery Reason for Consult*: Displaced subcapital right femoral neck fracture Requesting Physician: Dr. Richey Primary Care Provider: Jalyn Salas MD History of Present Illness History of Present Illness Rebecca Duke is a 86 year old female who presents today after sustaining a ground-level fall. Patient denies any loss of consciousness. Patient brought into the emergency department and x-rays show right displaced subcapital femoral neck fracture. Patient also has previous history roughly 2 years ago where she underwent a left hip hemiarthroplasty with Dr. Marti. Overall patient's done well since that time. Patient has a remote history of stroke back in 2017 where she states she feels as though she has some right-sided residual weakness. She lives at home with her sister. She utilizes a walker or cane and sometimes does not use any walking devices at all. She states she is on an aspirin for anticoagulation likely due to her A. fib. She has been weaned off of warfarin roughly 2 years ago. Her primary care physician is Dr. Lunsford. Patient just ate prior to presenting to the emergency department. Orthopedic surgery team consulted and asked for evaluation. Denies any fevers or chills denies any urinary tract symptoms. Review of Systems General: Reports: 10 or more systems reviewed and unremarkable except in HPI and below Const: Denies: fever(s) or chills Card: Denies: chest pain Resp: Denies: dyspnea or productive cough : Denies: dysuria Medications/Allergies Home Medications Medication Instructions Recorded Confirmed Last Taken Type cholecalciferol (vitamin D3) 125 125 mcg PO DAILY 12/18/19 02/18/22 02/18/22 History mcg (5,000 unit) capsule levothyroxine 50 mcg tablet 50 mcg PO DAILY 12/18/19 02/18/22 02/18/22 History metoprolol tartrate 50 mg tablet 50 mg PO BID 12/18/19 02/18/22 02/18/22 History aspirin 325 mg tablet 325 mg PO DAILY 03/25/20 02/18/22 02/18/22 History lisinopril 20 mg tablet 20 mg PO DAILY 03/25/20 02/18/22 02/18/22 History amiodarone 200 mg tablet 100 mg PO DAILY 07/15/20 02/18/2222 History ferrous sulfate 325 mg (65 mg 325 mg PO DAILY 01/11/21 02/18/22 02/18/22 History iron) tablet vitamin B complex (B 1 tab PO DAILY 01/10/22 02/18/22 02/18/22 History Complex-Vitamin B12) Allergies Allergy/AdvReac Type Severity Reaction Status Date / Time Nitrofuran Analogues Allergy Unknown Unknown Verified 02/18/22 14:16 PFSH Acute PFSH: Medical History (Updated 02/18/22 @ 16:50 by Rubin Hill DO) Anticoagulant long-term use Atrial fibrillation CKD (chronic kidney disease) stage 1, GFR 90 ml/min or greater CVA (cerebral vascular accident) Displaced fracture of right femoral neck HTN (hypertension) Hyperlipidemia Surgical History History of hemiarthroplasty of left hip Family History Father CAD (coronary artery disease) Sister CAD (coronary artery disease) Diabetes Brother Diabetes Other Hypertension Social History Smoking and tobacco status: never smoked Alcohol intake: never Substance/Drug Use: never Marital status: / Vitals/I&O/Wt Last Vital Signs Temp 97.8 F 02/18/22 13:10 Pulse 94 02/18/22 13:46 Resp 18 02/18/22 13:46 BP 198/116 02/18/22 13:46 Pulse Ox 92 02/18/22 13:46 O2 Del Method 02/18/22 13:46 Weight last 48 hrs Weight 118 lb Physical Exam Narrative: Orthopedic examination: Secondary survey examination of the bilateral upper extremity shows tenderness to palpation over the right shoulder with decreased range of motion no significant swelling or deformity noted. No tenderness to palpation of the left shoulder. No tenderness to palpation of the bilateral humerus elbow forearm wrist or hands. 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 Radial pulses 2+. And sensation intact light touch bilateral upper extremities. Examination of the lumbar spine demonstrates no tenderness to palpation Examination of the right hip tenderness palpation over the anterior aspect of the hip. Positive logroll, right lower extremity shortened and externally rotated, patient is able to wiggle her toes and weakly dorsiflex her ankle. She does giveaway on resistance of ankle dorsiflexion which is likely secondary to residual from previous stroke, she endorses sensation intact light touch in the SPN/DPN/tibial/saphenous/sural nerve distribution. Distal pulses palpable. Right lower extremity warm well perfused. Tenderness to palpation of the right knee femur ankle or foot Examination left lower extremity no tenderness palpation over the left hip negative logroll, patient has no tenderness to palpation of the left knee, hip, tibia, foot and ankle. Normal range of motion of these joints. Sensation intact light touch left lower extremity. Const: COMMON NORMALS: apparent distress and negative for alert HENMT: COMMON NORMALS: not normocephalic and head/scalp not atraumatic HEAD & SCALP: not normocephalic and not atraumatic Resp: COMMON NORMALS: negative for normal respiratory effort and negative for No retractions Cardio: COMMON NORMALS: Peripheral pulses 2+ throughout PERIPHERAL PULSES: Peripheral pulses 2+ throughout Neuro: SENSORIUM/ORIENTATION: No alert Urinary Catheter Management: Morales: Cath Placed During This Visit: yes Urinary Catheter Date of Insertion: 02/18/22 Urinary Catheter Time of Insertion: 14:00 Data : 02/18/22 13:20 02/18/22 13:20 Xray Ortho: My impression: X-rays AP of the pelvis as well as AP lateral of the hip femur and knee demonstrate a right displaced subcapital femoral neck fracture. As well as previous left hip hemiarthroplasty that is stable with no periprosthetic fracture. No fracture throughout the rest of the right femur or knee on x-ray imaging. A&P Assessment and plan (1) Displaced fracture of right femoral neck: Status: Acute Plan - May have diet -N.p.o. at midnight -Hospitalist team admitting as primary -Recommend treatment of UTI per primary team (would not recommend holding off surgery for UTI treatment as this would delay patient's care as well as pain and mobility to right hip. Patient's denies any urinary symptoms. UA positive in the ED) -Nonweightbearing right lower extremity -Pain control -Ice as needed -Hold a.m. anticoagulation -Preoperative labs?medical optimization and clearance by hospitalist team -Patient will require surgery for displaced right femoral neck fracture. Plan for OR tomorrow for right hip hemiarthroplasty. MDM: Rebecca presents as a pleasant 86-year-old female who sustained a ground-level fall having a right femoral neck fracture. Found to the emergency department orthopedic surgery team consulted. Patient had a remote history of left hip hemiarthroplasty with one of my partners couple years ago. She is done well since then. Does have a remote history of stroke back in 2017 with some residual right-sided weakness per patient. She just ate prior to presentation. In the emergency department her UA does show a urinary tract infection. She denied any prior urinary symptoms or complaints. At this standpoint would recommend IV antibiotics to be treating patient's UTI by the primary team starting today. We had discussion about proceeding with surgical intervention given UTI and ultimately I think appropriate to continue to proceed with surgical intervention as this will help patient with her pain as well as early mobility. The standpoint would recommend holding a.m. anticoagulation. Recommended surgical intervention would be a right hip hemiarthroplasty which I will utilize a posterior approach and cementation technique. All the risk benefits complication alternatives surgery discussed with patient as well as family at bedside. Risks include but not limited to make a better make it worse, blood clot, heart attack, stroke, on the table, infection, dislocation, nerve or vessel injury. With this understanding patient agrees to proceed with surgery. We will have her medically optimized by the primary team today with hopes for surgery tomorrow morning. Patient understands agrees with current plan. All questions answered. Consult Attestations Medical Necessity Statement: Right femoral neck fracture requiring hospitalization for surgical intervention and rehab Coding Level of Care Code Acute Ship Washer for Jose Mckeon Diagnoses Displaced fracture of right femoral neck S72.001A
[2022-02-18] MEDS: fentaNYL 50 mcg/mL INJ 2mL IVP (16:46)
[2022-02-18] MEDS: sodium chloride 0.9% 1,000 ML 100 ML IV (17:43)
[2022-02-18] MEDS: heparin 5,000 unit/mL INJ 1 mL 5000 UNIT SUBCUT (17:43)
[2022-02-18] MEDS: dilTIAZem 5 mg/mL SDV 5 mL IVP (20:35)
[2022-02-18] MEDS: metoprolol tartrate 50 mg Tablet PO (20:40)
[2022-02-18] MEDS: amiodarone 200 mg Tablet 100 MG PO (21:19)
[2022-02-19] VITALS (27 sets, daily range): BP systolic 125–213; BP diastolic 57–94; PULSE 57–90; RESP 14–20; TEMP 36.2–36.9; O2SAT 90–98
[2022-02-19] MEDS: sodium chloride 0.9% 1,000 ML 100 ML IV ×2 (03:03→12:04)
[2022-02-19 05:14] LABS: Basophils % 0.3 %; Eosinophils # 0.1 10^3/uL (0.0-0.8); Eosinophils % 0.5 %; Hematocrit 30.2 % (37.0-47.0); Hemoglobin 9.4 g/dL (11.5-15.3); Lymphocytes # 1.3 10^3/uL (0.8-4.8); Lymphocytes % 9.4 %; Mean Corpuscular HGB Conc 31.1 g/dL (30.0-36.0); Mean Corpuscular Hemoglobin 27.2 pg (28.0-34.0); Mean Corpuscular Volume 87.5 fl (81-99); Mean Platelet Volume 12.2 fL (7.4-10.4); Monocytes # 0.6 10^3/uL (0.2-0.9); Monocytes % 4.1 %; Neutrophils # 12.11 10^3/uL (1.8-7.7); Neutrophils % 85.1 %; Nucleated Red Blood Cells % 0 %; Platelet Count 236 10^3/cmm (130-400); Red Blood Count 3.45 10^6/uL (4.1-5.3); Red Cell Distribution Width 15.3 % (12.1-15.1); White Blood Count 14.2 10^3/uL (4.0-10.0)
--- NOTE | 2022-02-19 07:07 | W.PM.OPSUD ---
Surgery/Procedure H&P Update DATE OF PROCEDURE: February 19, 2022 DATE H&P PERFORMED: 02/18/22 CHANGES TO PREVIOUS DOCUMENTATION: None PREOP DIAGNOSIS: Subcapital displaced right hip fracture PRIMARY INDICATION FOR PROCEDURE: Displaced subcapital femoral neck fracture right PLANNED PROCEDURE: Operation Date: 02/19/22 08:00 Proposed Procedures p Hemiarthroplasty Hip(Right) - Rubin Hill DO
--- NOTE | 2022-02-19 07:08 | P.PN_ITS ---
Subjective Subjective: Patient seen and examined this morning. Issues with pain overnight. N.p.o. since midnight. Plan for OR today for right hip hemiarthroplasty. Patient seen in preoperative holding area consent was reviewed with patient and signed. All questions answered. All risk benefits complication alternatives thoroughly discussed with patient she understands and agrees with current plan. Patient agrees to proceed with surgery Vitals/I&O/Wt Last Vital Signs Temp 98.2 F 02/19/22 04:00 Pulse 65 02/19/22 05:43 Resp 17 02/19/22 06:11 BP 201/66 02/19/22 04:00 Pulse Ox 90 02/19/22 04:00 O2 Del Method 02/19/22 04:00 02/18/22 02/19/22 02/19/22 22:59 06:59 14:59 Intake Total 110 / 110 1053.333 / 1163.333 Output Total 400 / 400 250 / 650 Balance -290 / -290 803.333 / 513.333 Weight last 48 hrs Weight 134 lb 6 oz Weight 118 lb Physical Exam Narrative: Examination right lower extremity demonstrates patient's able to wiggle her toes plantarflex and weak dorsiflexion. Right lower extremity is shortened and externally rotated. Tenderness palpation at right hip. Positive logroll. Distal pulses palpable. Urinary Catheter Management: Morales: Cath Placed During This Visit: yes Reason for Continuing Indwelling Catheter: Other Urinary Catheter Date of Insertion: 02/18/22 Urinary Catheter Time of Insertion: 14:00 Data : 02/19/22 04:10 02/18/22 13:20 Xray Ortho: My impression: X-rays pelvis hip femur and knee on the right side demonstrate right displaced subcapital femoral neck fracture A&P Assessment and plan (1) Displaced fracture of right femoral neck: Status: Acute Plan - N.p.o. since midnight -Obtain consent -IV Rocephin for UTI -Internal medicine is primary -Nonweightbearing right lower extremity -Plan for OR today for right hip hemiarthroplasty -A.m. anticoagulation held -Patient will return to floor postoperatively. Attestations Medical Necessity Statement*: Patient sustained right hip fracture requiring hospitalization and surgical intervention and therapy postoperatively. Coding Level of Care Code Acute Staffing Administrator for Jose Mckeon Diagnoses Displaced fracture of right femoral neck S72.001A
--- NOTE | 2022-02-19 07:47 | P.ANESASSM_ITS ---
Pre-Anesthetic Assessment Height/Weight: Height 1.57 m Weight 60.951 kg Temp Pulse Resp BP Pulse Ox O2 Del Method O2 Flow Rate 97.9 F 70 18 213/84 97 3 02/19/22 07:18 02/19/22 07:18 02/19/22 07:18 02/19/22 07:18 02/19/22 07:18 02/19/22 07:18 02/19/22 07:18 Preop Diagnosis: Subcapital displaced right hip fracture Operation Date: 02/19/22 08:00 Proposed Procedures p Hemiarthroplasty Hip(Right) - Rubin Hill DO Familial anesthetic complications: None Was Beta Darlene taken within 24 hours: Yes Was Clonidine taken within 24 hours: N/A Last intake: Intake Last Liquid Date 02/18/22 Last Liquid Time 22:00 Last Solid Date 02/18/22 Last Solid Time 17:00 Social No alcohol and No tobacco Exam alert, oriented x 3, clear to auscultation bilaterally and regular rate & rhythm Airway Mallampati: Class II Dentition: false (uppers) CV/HEM Arrythmia and Hypertension Chronic Renal Insufficiency Metabolic Thyroid Disease Neuropsych Cerebrovascular Accident Anesthetic Plan ASA status: 3 Anesthesia: Regional (specify below) Risk of > 500 ml blood loss (7ml/kg in children): No Medications/Allergies Home Medications Medication Instructions Recorded Confirmed Last Taken Type cholecalciferol (vitamin D3) 125 125 mcg PO DAILY 12/18/19 02/18/22 02/18/22 History mcg (5,000 unit) capsule levothyroxine 50 mcg tablet 50 mcg PO DAILY 12/18/19 02/18/22 02/18/22 History metoprolol tartrate 50 mg tablet 50 mg PO BID 12/18/19 02/18/22 02/18/22 History aspirin 325 mg tablet 325 mg PO DAILY 03/25/20 02/18/22 02/18/22 History lisinopril 20 mg tablet 20 mg PO DAILY 03/25/20 02/18/22 02/18/22 History amiodarone 200 mg tablet 100 mg PO DAILY 07/15/20 02/18/22 02/18/22 History ferrous sulfate 325 mg (65 mg 325 mg PO DAILY 01/11/21 02/18/22 02/18/22 History iron) tablet vitamin B complex (B 1 tab PO DAILY 01/10/22 02/18/22 02/18/22 History Complex-Vitamin B12) Allergies Allergy/AdvReac Type Severity Reaction Status Date / Time Nitrofuran Analogues Allergy Unknown Unknown Verified 02/18/22 14:16 Current Medications Generic Name Dose Route Start Last Admin Trade Name Freq PRN Reason Stop Dose Admin Amiodarone HCl 100 mg 02/18/22 21:00 02/18/22 21:19 Amiodarone 200 Mg Tablet PO 100 mg DAILY BLAKE Administration Sodium Chloride 1,000 mls @ 100 mls/hr 02/18/22 17:11 02/19/22 03:03 Sodium Chloride 0.9% IV 100 mls/hr .Q10H BLAKE Administration Metoprolol Tartrate 50 mg 02/18/22 21:00 02/18/22 20:40 Metoprolol Tartrate 50 Mg Tablet PO 50 mg BID@0900,2100 BLAKE Administration Morphine Sulfate 2 mg 02/18/22 18:36 02/19/22 06:11 Morphine 2 Mg/Ml Syr 1 Ml IVP 2 mg Q4H PRN Administration SEVERE PAIN PFSH Anesthesia Medical History (Updated 02/18/22 @ 16:50 by Rubin Hill DO) Anticoagulant long-term use Atrial fibrillation CKD (chronic kidney disease) stage 1, GFR 90 ml/min or greater CVA (cerebral vascular accident) Displaced fracture of right femoral neck HTN (hypertension) Hyperlipidemia Surgical History History of hemiarthroplasty of left hip Family History Father CAD (coronary artery disease) Sister CAD (coronary artery disease) Diabetes Brother Diabetes Other Hypertension Social History Smoking and tobacco status: never smoked Alcohol intake: never Substance/Drug Use: never Marital status: / Data Anesthesia : 02/19/22 04:10 02/18/22 13:20 Short CBC 02/18/22 02/19/22 Range/Units 13:20 04:10 WBC 8.9 14.2 H (4.0-10.0) 10^3/uL Hgb 10.2 L 9.4 L (11.5-15.3) g/dL Hct 31.9 L 30.2 L (37.0-47.0) % MCV 87.6 87.5 (81-99) fl Plt Count 264 236 (130-400) 10^3/cmm Neut % (Auto) 59.9 85.1 % Neut # (Auto) 5.35 12.11 H (1.8-7.7) 10^3/uL BMP 02/18/22 13:20 Sodium 139 Potassium 4.4 Chloride 104 Carbon Dioxide 23 BUN 34 H Creatinine 1.9 H Glucose 128 H Calcium 9.4 Cardiac Enzymes 02/18/22 Range/Units 13:20 Troponin T Gen 5 ng/L 22 H (0-10) ng/L Liver Function 02/18/22 Range/Units 13:20 Total Bilirubin 0.2 (0.15-1.2) mg/dL AST 23 (0-32) U/L ALT 13 (0-33) U/L Alkaline Phosphatase 65 (35-105) U/L Albumin 3.6 (3.5-5.2) g/dL Urine 02/18/22 Range/Units 13:58 Urine Color Yellow (Yellow) Urine Appearance Clear (CLEAR) Urine pH 6 (5-7) Ur Specific [place] 1.015 (1.005-1.030) Urine Protein 3+ H (Negative) Urine Glucose (UA) Norm (Normal) Urine Ketones Negative (Negative) Urine Nitrate Positive H (Negative) Urine Bilirubin Neg (Negative) Ur Leukocyte Esterase Trace H (Negative) Urine RBC 0-4 H (0-2) /hpf Urine WBC 25-40 H (0-5) /hpf Blood Bank 02/18/22 16:20 Blood Type O Positive Rho(D) Type Positive Antibody Screen Negative Coags 02/18/22 13:20 PT 13.10 INR 0.96 APTT 24.9 Microbiology 02/18/22 13:58 Urine Culture - Preliminary Urine,Clean Catch Gram Negative Rods Cardiac Studies: No Data to Display
[2022-02-19] MEDS: ceFAZolin 2,000 MG in sodium chloride 0.9% (plus) 50 ML 100 MG IV (08:00)
[2022-02-19] MEDS: tranexamic acid 1,000 mg/10mL SDV 1000 MG IV (08:00)
[2022-02-19] MEDS: sodium chloride 0.9% 1,000 ML 30 ML IV (08:00)
--- NOTE | 2022-02-19 09:54 | XRR_ITS ---
PROCEDURE INFORMATION: Exam: XR Pelvis Exam date and time: 02/19/2022 10:23 AM Age: 86 years old Clinical indication: Hip pain; Right hip; Prior surgery; Surgery date: Post-operative (0-2 days); Surgery type: RT hip bipolar; Additional info: Postop right hip aarti, ap pelvis TECHNIQUE: Imaging protocol: Radiologic exam of the pelvis. Views: 1 or 2 view. COMPARISON: CR XR pelvis 1-2V* [id number] 02/18/2022 2:20 PM FINDINGS: Tubes, catheters and devices: Surgical sheridan noted overlying the superficial soft tissues overlying the right hip. Bones/joints: Right total hip arthroplasty appears unremarkable. No malalignment. Soft tissues: Expected postsurgical subcutaneous emphysema. XR/XR pelvis 1-2V* [id number] IMPRESSION: Normal appearing right total hip arthroplasty.
--- NOTE | 2022-02-19 09:56 | PM.OP2 ---
Brief Operative Note Date of procedure: 02/19/22 Pre-op diagnosis: Displaced subcapital right femoral neck fracture Post-op diagnosis: same Procedure Done: Right hip hemiarthroplasty, cemented Surgeon: Rubin Hill Estimated blood loss (mL): 150 Complications: None Post-op Plan: Patient to recover in PACU. Patient will return to floor. Receive appropriate perioperative antibiotics which will be covered with Rocephin as patient is being treated with UTI. Started on DVT prophylaxis. Pain control. Posterior hip precautions. Weightbearing as tolerated to the right lower extremity. Work with PT/OT. government services professional on board for discharge planning. Internal medicine is primary Condition: stable Disposition: floor Coding Level of Care Code Acute Weed Sprayer for Jose Mckeon
--- NOTE | 2022-02-19 09:58 | P.OP_ITS ---
Operative Report Date of procedure: February 19, 2022 Pre-op diagnosis: Preop Diagnosis Subcapital displaced right hip fracture Post-op diagnosis: same Post-op findings: See procedure note Procedure done: Right hip hemiarthroplasty cemented Implants: Suzanne Accolade C stem size 3 132 degrees 44 mm bipolar ball 28 mm +0 standard offset Distal spacer 10 mm Cement Specimens removed/disposition: Right femoral head Surgeon: Rubin Hill DO Estimated blood loss (mL): 150 None IV fluids: See the record Complications: None Findings: See procedure note Condition: stable Disposition: floor Brief History: Patient seen and evaluated yesterday on 02/18/2022 after sustaining a ground-level fall with right hip pain. Brought to the emergency department found to have a displaced right subcapital femoral neck fracture. We had detailed discussion with her as well as family about her treatment options. Patient is able to verbalize understanding of her diagnosis as well as my treatment recommendations which would be for a right hip hemiarthroplasty. Expressed the benefits this would be for pain control as well as early mobilization. She understands the risk the benefits the complications and alternatives to nonsurgical and surgical treatment options. Risks include but are not limited to make a better make it worse, blood clot, heart attack, stroke, on the table, injury to nerves or vessels, pulmonary conditions given cement. Understanding these risk patient elects to proceed with surgical intervention. She was admitted by hospitalist team medically optimized and plan for surgery the following day. Procedure: Patient was seen evaluated in the preoperative holding area. Consent was then obtained with patient in the right hip was then signed by myself. Patient was seen evaluated by the anesthesia department and once cleared in preop she was then taken to the operative suite on her hospital bed. Patient underwent general anesthesia per the anesthesia department on her hospital bed. When she was appropriately anesthetized we then transferred patient safely onto the hospital table. She was then placed in the lateral decubitus position with the right hip up. Patient was secured on a pegboard table and all bony prominences were well padded. The right lower extremity was then prepped and draped in standard orthopedic fashion. Final timeout confirmed. Standard posterior approach was used centering over the greater trochanter sharp scalpel excision through skin subcutaneous tissue. Then utilize electrocautery to incise the tensor fascia [place] and IT band as well as glut max's fascia. This was then split longitudinally. Propria retractors were then placed hip was then placed into internal rotation Hohmann was placed underneath the abductors and electrocautery was used to to make 1 thick sleeve of external rotators and capsule tissue starting proximally distal to the lesser trochanter. Made only 1 center countering the capsule fracture hematoma noted. This was appropriately evacuated. Capsular sleeve and external rotators were then placed back and protected the sciatic nerve throughout the rest of the case. Hip was then appropriately dislocated there was a noticeably long neck as result the neck cut would need to be made. Homans were placed above and below the neck. I then marked 1 fingerbreadth above the lesser roughly 15 mm and then utilized an oscillating saw to freshen our neck cut. Bony neck was removed then then utilized a corkscrew to remove the femoral head. This was done atraumatically and the head was measured and sized to be 44 mm. This point time I then placed a Hohmann on the anterior aspect of the acetabulum to inspect the socket which was in good condition. All bony fragments from the fracture were then removed from the acetabular socket. Once this was cleaned we then utilized a 44 mm lollipop trial just to confirm appropriate suction. This had excellent fixation. Next we transition to our femoral preparation. Femoral elevator was used. Small rongeur was used to clean off the soft tissue of the shoulder to allow for appropriate position and lateralization using a box osteotome. Once neck cleared off box osteotome used canal finder was then placed and a rat tail was used to lateralize rasp. Next utilized 1 lateralizing reamer. Next we sequentially broached up to a size 3 Accolade C. Suzanne femoral stem. This was loose however size 4 was going to be too large and as result we were cementing we attempted to trial just to confirm that we would be able to reduce after cementation. A standard size neck and offset was then applied to the 44 bipolar trial head this was then reduced atraumatically by myself and had excellent stability. As result we elected to proceed with size 3 femoral stem and cementing. Hip was then dislocated femoral stem and ball removed. The femoral canal was then prepped for cementation final implants were then opened. 2 mm of distal cement plug was then measured on her final femoral implant this was then impacted down to appropriate length as our cement restrictor. Once this was done the canal was then appropriately brushed irrigated and dried with a tampon sponge. Cement was then mixed, we then informed anesthesia to optimize O2 sats physicians as we will be cementing. Cement gun introduced cement was then placed and pressurized and the implant was then placed into appropriate position resting the collar directly on the calcar and appropriate version was then set which was previously marked with our trial implants paralleling the posterior cortex. We then cleaned cement as this was impacted into place and was held until cement was allowed to cure once cured we then inspected the acetabulum making sure no cement pieces were in notes we did 1 more trial of our standard offset neck which was then reduced and had excellent leg length as well as stability and appropriate shuck. As result we opened up the spinal implants of 44 mm bipolar outer ball with a 28 mm inner ball +0 offset. Hip with trial head was then dislocated taken off and then the final bipolar head was impacted into place. Hip was then reduced atraumatically and had excellent stability and leg lengths. Wound bed was then thoroughly irrigated with Pulsavac. I then utilized #5 Ethibond suture and bone tunnels with a drill bit Hewson suture passer to repair the capsule and short external rotators. Once this was done I then closed the IT band and fascia with a #1 running strata fix suture. Deep subcutaneous layer was then closed with 2 oh strata fix and subcutaneous and cuticular layer was closed with 4 oh strata fix. [place] on skin. Silverlon dressing applied. Patient was then awakened from anesthesia transferred to the hospital bed and taken back to PACU in stable condition. Disposition: Patient to PACU in stable condition. Patient will return to floor once appropriately recovered. Continue with IV Rocephin for UTI and will be covered for perioperative antibiotics. Weightbearing as tolerated right lower extremity. Posterior hip precautions. Will obtain postoperative x-rays. Pain control. Begin DVT prophylaxis tomorrow. Patient will work with PT/OT and social research assistant for discharge planning.
--- NOTE | 2022-02-19 10:42 | SUR.PHASEI ---
1025 SCDs on bilat and pump working. 1045 Pt has good sensation to right foot, is able to feel this nurse touch her foot. She is able to wiggle toes and flex right foot. This nurse able to palpate dorsalis pedis and posterior tibial pulse in the right foot.
[2022-02-19] MEDS: oxyCODONE 5 mg IR Tab/Cap PO (11:34)
[2022-02-19] MEDS: acetaminophen 500 mg Tablet 1000 MG PO ×2 (11:36→17:03)
[2022-02-19] MEDS: metoprolol tartrate 50 mg Tablet PO ×2 (11:46→20:35)
--- NOTE | 2022-02-19 12:00 | ANE.PACU2 ---
Inpatient post-anesthesia follow up: Airway intact: Yes Vital signs: Temperature 98.5 F Pulse Rate 73 Respiratory Rate 18 Blood Pressure 158/68 Pulse Oximetry 96 Oxygen Delivery Me thod Nasal Cannula Oxygen Flow Rate 3 Fraction of Inspir ed Oxygen Hydration adequate: Yes Nausea and vomiting: No Pain level: 3 Mental status: Baseline
[2022-02-19] MEDS: chlorhexidine gluconate 0.12% Btl 473 mL 30 ML MUCOUS MEM ×3 (12:04→20:35)
--- NOTE | 2022-02-19 13:00 | PM.PACU ---
PACU note Narrative: Patient seen and examined postoperatively on the floor. She was still somnolent and immediate postoperatively from anesthesia my initial assessment. Covered well in PACU taken to floor in stable condition. Patient is awake oriented and following commands on the floor. Her niece as well as sister are at bedside. Patient states her pain in her right hip feels improved. Hip abduction pillow in place while resting comfortably in bed. She is given instructions on her posterior hip precautions. Patient denies sensation tact light touch the right lower extremity. Patient can plantarflex and dorsiflex ankle. Back to her baseline. Distal pulses palpable. Foot is warm well perfused distal pulses palpable. Dressings on in place and are clean dry and intact Exam: awake (Follows commands see narrative above for details) Disposition: back to floor
[2022-02-19] MEDS: cefTRIAXone 1,000 MG in sodium chloride 0.9% (plus) 50 ML 100 MG IV (15:36)
[2022-02-19] MEDS: mupirocin oint 22 gm 1 APPLIC NASAL (17:03)
[2022-02-19] MEDS: sennosides-docusate Tablet 2 TAB PO (17:03)
[2022-02-19] MEDS: iron polysaccharide complex 150 mg Capsule PO (17:03)
[2022-02-19] MEDS: calcium carb-vit d 600mg/400unit 1 Tablet 1 EACH PO (17:03)
--- NOTE | 2022-02-19 20:02 | PM.PN ---
Subjective Subjective: She is doing well after surgery. She denies any pain or discomfort. Pain in her hip is actually gone. She denies any chest pain or pressure. No trouble breathing. Vitals/I&O/Wt Last Vital Signs Temp 97.5 F L 02/19/22 11:52 Pulse 69 02/19/22 15:43 Resp 18 02/19/22 15:43 BP 160/62 02/19/22 15:43 Pulse Ox 96 02/19/22 15:43 O2 Del Method 02/19/22 15:43 O2 Flow Rate 2.5 02/19/22 15:31 02/19/22 02/19/22 02/19/22 06:59 14:59 22:59 Intake Total 1053.333 / 8384.763 2677.667 / 1651.667 50 / 1701.667 Output Total 250 / 650 300 / 300 125 / 425 Balance 803.333 / 472.561 7490.667 / 1351.667 -75 / 1276.667 Weight last 48 hrs Weight 60.951 kg Weight 53.524 kg Physical Exam Const: COMMON NORMALS: alert GENERAL APPEARANCE: cooperative ORIENTATION/CONSCIOUSNESS: Yes awake HENMT: COMMON NORMALS: oropharynx normal Neck/C-Spine: COMMON NORMALS: no JVD Resp: COMMON NORMALS: normal respiratory effort and clear to auscultation bilaterally AUSCULTATION: clear to auscultation bilaterally Cardio: COMMON NORMALS: no JVD, regular rhythm, S1 normal heart sound present, S2 normal heart sound present and No murmurs present (Cardio) RHYTHM: regular rhythm HEART SOUNDS: S1 normal heart sound present and S2 normal heart sound present GI: COMMON NORMALS: Normal to inspection, nondistended, normoactive bowel sounds present, Soft to palpation and non-tender PALPATION: Yes Soft to palpation Extremity: COMMON NORMALS: no joint enlargement and no pedal edema NARRATIVE EXTREMITY EXAM: Laterally minimal bruise superiorly, clean dressing in place. Minimal swelling. Neuro: COMMON NORMALS: moves all extremities SENSORIUM/ORIENTATION: Yes alert Skin: COMMON NORMALS: no rashes or lesions noted GENERAL SKIN EXAM: no rashes or lesions noted Urinary Catheter Management: Morales: Cath Placed During This Visit: yes Reason for Continuing Indwelling Catheter: Perioperative Use in Selected Surgeries Urinary Catheter Date of Insertion: 02/18/22 Urinary Catheter Time of Insertion: 14:00 Data : 02/19/22 04:10 02/18/22 13:20 Micro: Microbiology 02/18/22 13:58 Urine Culture - Preliminary Urine,Clean Catch Gram Negative Rods A&P Assessment and plan (1) Closed subtrochanteric fracture of right femur: Doing well after right hip hemiarthroplasty today. Denies any chest pain or pressure. We will follow-up troponin. Follow-up blood count. Lovenox VT prophylaxis. PT assessment. Discharge planning. Status: Acute (2) UTI (urinary tract infection): Ceftriaxone. Follow-up urine culture. Status: Acute (3) HTN (hypertension): Blood pressures are doing better with improvement in pain. Continue metoprolol. Reassess blood pressure. Status: Acute Plan A. fib: On aspirin, not on anticoagulation due to history of prior falls. Metoprolol. Amiodarone. CKD: Creatinine appears close to her baseline slightly worse than baseline. Last creatinine from 2019 was 1.5. Hold lisinopril. Avoid NSAIDs, other potential nephrotoxic medications. Reassess renal function. Hypothyroidism: Levothyroxine. HLD Attestations Medical Necessity Statement*: Continue admission for assessment and following right hip fracture and repair with hemiarthroplasty, UTI in a lady of advanced age and above comorbidities. Coding Level of Care Code Acute Manager Monitoring for [facility] Fwd Diagnoses Closed subtrochanteric fracture of right femur S72.21XA UTI (urinary tract infection) N39.0 HTN (hypertension) I10
[2022-02-19] MEDS: enoxaparin 30 mg/0.3 mL Syringe SUBCUT (21:47)
[2022-02-20] VITALS (10 sets, daily range): BP systolic 131–188; BP diastolic 61–70; PULSE 57–92; RESP 16–19; TEMP 36.4–36.9; O2SAT 96–98
[2022-02-20] MEDS: oxyCODONE 5 mg IR Tab/Cap PO ×3 (00:16→23:19)
[2022-02-20] MEDS: sodium chloride 0.9% 1,000 ML 100 ML IV ×2 (02:19→13:04)
[2022-02-20] MEDS: acetaminophen 500 mg Tablet 1000 MG PO ×3 (03:14→17:19)
[2022-02-20 06:17] LABS: Basophils % 0.3 %; Eosinophils # 0.2 10^3/uL (0.0-0.8); Eosinophils % 1.2 %; Hematocrit 27.6 % (37.0-47.0); Hemoglobin 8.3 g/dL (11.5-15.3); Lymphocytes % 7.6 %; Mean Corpuscular HGB Conc 30.1 g/dL (30.0-36.0); Mean Corpuscular Hemoglobin 27.7 pg (28.0-34.0); Mean Platelet Volume 11.4 fL (7.4-10.4); Monocytes # 0.8 10^3/uL (0.2-0.9); Neutrophils # 10.91 10^3/uL (1.8-7.7); Neutrophils % 84.4 %; Nucleated Red Blood Cells % 0 %; Platelet Count 178 10^3/cmm (130-400); Red Cell Distribution Width 15.7 % (12.1-15.1)
[2022-02-20 06:41] LABS: Troponin T (5th) Once 31 ng/L (0-10)
[2022-02-20 06:42] LABS: Anion Gap 13.4 (5-19); Blood Urea Nitrogen 33 mg/dL (8-23); Calcium 8.2 mg/dL (8.5-10.5); Carbon Dioxide 21 mmol/L (22-29); Chloride 109 mmol/L (98-107); Glucose 111 mg/dL (65-115); Osmolality Calculated 296 mOsm/kg (285-295); Potassium 4.4 mmol/L (3.5-5.1); Sodium 139 mmol/L (136-145)
--- NOTE | 2022-02-20 07:19 | PM.PN ---
Subjective Subjective: Patient seen and examined this morning. She is complaining still some pain in her right shoulder and her right hip. Reviewed her imaging which show no acute fracture or dislocation. We will order a axillary view of her shoulder just to confirm as she is still having difficulty with pain. On examination she is able to elevate her right shoulder to roughly 40 degrees and I am able to take her passively up to 160 degrees. Her incisions clean dry and intact. Abduction pillow is in place. Patient has not gotten up with therapy yet. We will hopefully go with therapy today. She does complain of some left lower extremity pain which suspect more related to her being in the lateral decubitus position on the left side. Vitals/I&O/Wt Last Vital Signs Temp 98.5 F 02/20/22 04:00 Pulse 73 02/20/22 04:00 Resp 18 02/20/22 04:00 BP 158/68 02/20/22 04:00 Pulse Ox 96 02/20/22 04:00 O2 Del Method 02/19/22 20:31 O2 Flow Rate 3 02/19/22 20:31 02/19/22 02/20/22 02/20/22 22:59 06:59 14:59 Intake Total 1050 / 2701.667 480 / 3181.667 Output Total 125 / 425 150 / 575 Balance 925 / 2276.667 330 / 2606.667 Weight last 48 hrs Weight 137 lb 14.4 oz Weight 134 lb 6 oz Weight 118 lb Physical Exam Narrative: Orthopedic examination: Examination of the right shoulder shows tenderness to palpation predominantly over the AC joint. No significant defect to the right shoulder however does appear to have more of a superior migration of the humeral head consistent with rotator cuff arthropathy she is only able to actively abduct or forward flex to roughly 40 degrees. I am able to take her passively range her up 160 3's. Examination of her right lower extremity shows things on and in place is clean dry and intact. She has sensation intact to light touch of the right lower extremity. She is able to wiggle her toes plantarflex and dorsiflex her ankle. Left lower extremity she is able to wiggle her toes as well as plantarflex and dorsiflex her ankle. Distal pulses palpable bilaterally. Bilateral lower extremities warm well perfused. Urinary Catheter Management: Morales: Cath Placed During This Visit: yes Reason for Continuing Indwelling Catheter: Perioperative Use in Selected Surgeries Urinary Catheter Date of Insertion: 02/18/22 Urinary Catheter Time of Insertion: 14:00 Data : 02/20/22 06:05 02/20/22 06:05 Micro: Microbiology 02/18/22 13:58 Urine Culture - Preliminary Urine,Clean Catch Gram Negative Rods A&P Assessment and plan (1) Displaced fracture of right femoral neck: Status: Acute Plan - Internal medicine as primary team -Resume regular diet -Post operative antibiotics covered with patient being treated for UTI -DVT prophylaxis Lovenox -A.m. labs reviewed -Pain control -Weightbearing as tolerated right lower extremity -Posterior hip precautions -PT/OT -nutrition services manager discharge planning -X-ray right shoulder 1 view axillary Attestations Medical Necessity Statement*: Patient sustained right femoral neck fracture undergoing right hip hemiarthroplasty. Will require pain control and postoperative monitoring and therapy. Coding Level of Care Code Acute Yield Loss Inspector for Jose Mckeon Diagnoses Displaced fracture of right femoral neck S72.001A Time Spent (min) 30
--- NOTE | 2022-02-20 07:25 | XRR_ITS ---
PROCEDURE INFORMATION: Exam: XR Right Shoulder Exam date and time: 02/20/2022 8:44 AM Age: 86 years old Clinical indication: Pain; Shoulder; Right; Additional info: Persistent right shoulder pain, please obtain 1 axillary view TECHNIQUE: Imaging protocol: Radiologic exam of the Right shoulder. Views: 1 view. COMPARISON: CR XR chest 1V portable [id number] 02/18/2022 1:32 PM FINDINGS: Bones/joints: Single axillary view of the shoulder appears unremarkable. Soft tissues: Unremarkable. XR/XR shoulder RT 1V [id number] IMPRESSION: Single axillary view of the shoulder appears unremarkable.
[2022-02-20] MEDS: cholecalciferol (vitamin D3) 1,000 unit Tablet 1000 UNIT PO (08:57)
[2022-02-20] MEDS: amiodarone 200 mg Tablet 100 MG PO (08:57)
[2022-02-20] MEDS: calcium carb-vit d 600mg/400unit 1 Tablet 1 EACH PO ×2 (08:57→17:19)
[2022-02-20] MEDS: iron polysaccharide complex 150 mg Capsule PO ×2 (08:57→17:19)
[2022-02-20] MEDS: sennosides-docusate Tablet 2 TAB PO ×2 (08:57→17:18)
[2022-02-20] MEDS: multivitamin therapeutic Tablet 1 TAB PO (08:58)
[2022-02-20] MEDS: chlorhexidine gluconate 0.12% Btl 473 mL 30 ML MUCOUS MEM ×4 (09:01→20:50)
[2022-02-20] MEDS: mupirocin oint 22 gm 1 APPLIC NASAL ×2 (09:02→17:20)
[2022-02-20] MEDS: metoprolol tartrate 50 mg Tablet PO ×2 (09:03→20:49)
[2022-02-20] MEDS: fixodent 39 gm Tube 1 APPLIC DENTAL (11:33)
--- NOTE | 2022-02-20 14:32 | P.PN_ITS ---
Subjective Subjective: She reports she is doing better. She had pain in her right thigh when she was transferring over to the chair, but once she settled in pain has subsided. Denies chest pain or pressure. No trouble breathing. Vitals/I&O/Wt Last Vital Signs Temp 97.5 F L 02/20/22 12:00 Pulse 57 L 02/20/22 12:00 Resp 16 02/20/22 12:00 BP 131/63 02/20/22 12:00 Pulse Ox 98 02/20/22 12:00 O2 Del Method 02/20/22 12:00 O2 Flow Rate 3 02/19/22 20:31 02/19/22 02/20/22 02/20/22 22:59 06:59 14:59 Intake Total 1050 / 2701.667 480 / 3181.667 1120 / 1120 Output Total 125 / 425 150 / 575 Balance 925 / 2276.667 330 / 2606.667 1120 / 1120 Weight last 48 hrs Weight 62.55 kg Weight 60.951 kg Physical Exam Const: COMMON NORMALS: patient oriented x3 and alert GENERAL APPEARANCE: cooperative ORIENTATION/CONSCIOUSNESS: Yes awake HENMT: COMMON NORMALS: oropharynx normal Neck/C-Spine: COMMON NORMALS: no JVD Resp: COMMON NORMALS: normal respiratory effort and clear to auscultation bilaterally AUSCULTATION: clear to auscultation bilaterally Cardio: COMMON NORMALS: no JVD, regular rhythm, S1 normal heart sound present, S2 normal heart sound present and No murmurs present (Cardio) RHYTHM: regular rhythm HEART SOUNDS: S1 normal heart sound present and S2 normal heart sound present GI: COMMON NORMALS: Normal to inspection, nondistended, normoactive bowel sounds present, Soft to palpation and non-tender PALPATION: Yes Soft to palpation Extremity: COMMON NORMALS: no joint enlargement and no pedal edema NARRATIVE EXTREMITY EXAM: Mild swelling right thigh. No significant bruising. No erythema at wound. Neuro: COMMON NORMALS: patient oriented x3 and moves all extremities SENSORIUM/ORIENTATION: Yes alert Skin: COMMON NORMALS: no rashes or lesions noted GENERAL SKIN EXAM: no rashes or lesions noted Urinary Catheter Management: Morales: Cath Placed During This Visit: yes, but has since been removed by the nurse Reason for Continuing Indwelling Catheter: Perioperative Use in Selected Surgeries Urinary Catheter Date of Insertion: 02/18/22 Urinary Catheter Time of Insertion: 14:00 Date Urinary Catheter Removed: 02/20/22 Time Urinary Catheter Discontinued: 10:01 Data : 02/20/22 06:05 02/20/22 06:05 A&P Assessment and plan (1) Closed subtrochanteric fracture of right femur: Troponin with minimal change. She remains chest pain-free. Recheck value in the morning. Hemoglobin down to 8.3. Recheck level. Did well with PT. Follow-up blood count. Lovenox VT prophylaxis. Discharge planning. Status: Acute (2) UTI (urinary tract infection): Ceftriaxone. GNR in urine culture. Status: Acute (3) HTN (hypertension): Blood pressures are doing better with improvement in pain. Stop IVF. Continue metoprolol. Hold off on resuming lisinopril just yet. Status: Acute Plan A. fib: On aspirin, not on anticoagulation due to history of prior falls. Metoprolol. Amiodarone. CKD: Creatinine appears close to her baseline slightly worse than baseline. Last creatinine from 2019 was 1.5. Hold lisinopril. Avoid NSAIDs, other potential nephrotoxic medications. Stop IV fluid. Reassess renal function. Hypothyroidism: Levothyroxine. HLD Attestations Medical Necessity Statement*: Continue admission for assessment management following right hip fracture and repair, postoperative care, disposition planning. Coding Level of Care Code Acute Control Systems Engineer for Jose Mckeon Diagnoses Closed subtrochanteric fracture of right femur S72.21XA UTI (urinary tract infection) N39.0 HTN (hypertension) I10
[2022-02-20] MEDS: cefTRIAXone 1,000 MG in sodium chloride 0.9% (plus) 50 ML 100 MG IV (14:35)
--- NOTE | 2022-02-20 18:11 | PC.NURSE ---
physician notified patient hasn't voided since lu was d/c'd earlier in the shift. Reported bladder scan of 21. No new orders given at this time.
[2022-02-20] MEDS: enoxaparin 30 mg/0.3 mL Syringe SUBCUT (20:49)
[2022-02-21] VITALS (18 sets, daily range): BP systolic 129–165; BP diastolic 55–75; PULSE 62–84; RESP 16–18; TEMP 36.4–37.3; O2SAT 94–98
[2022-02-21] MEDS: acetaminophen 500 mg Tablet 1000 MG PO ×3 (02:34→17:55)
[2022-02-21 05:13] LABS: Basophils % 0.2 %; Eosinophils # 0.1 10^3/uL (0.0-0.8); Eosinophils % 1.2 %; Hematocrit 24.7 % (37.0-47.0); Hemoglobin 7.3 g/dL (11.5-15.3); Lymphocytes # 1.1 10^3/uL (0.8-4.8); Lymphocytes % 9.4 %; Mean Corpuscular HGB Conc 29.6 g/dL (30.0-36.0); Mean Corpuscular Hemoglobin 27.4 pg (28.0-34.0); Mean Corpuscular Volume 92.9 fl (81-99); Mean Platelet Volume 12.2 fL (7.4-10.4); Monocytes # 0.7 10^3/uL (0.2-0.9); Monocytes % 6.3 %; Neutrophils % 82.4 %; Nucleated Red Blood Cells % 0 %; Platelet Count 167 10^3/cmm (130-400); Red Blood Count 2.66 10^6/uL (4.1-5.3); Red Cell Distribution Width 15.9 % (12.1-15.1); White Blood Count 11.4 10^3/uL (4.0-10.0)
[2022-02-21 05:42] LABS: Anion Gap 11.3 (5-19); Blood Urea Nitrogen 37 mg/dL (8-23); Calcium 8.3 mg/dL (8.5-10.5); Carbon Dioxide 21 mmol/L (22-29); Chloride 111 mmol/L (98-107); Glucose 96 mg/dL (65-115); Osmolality Calculated 297 mOsm/kg (285-295); Potassium 4.3 mmol/L (3.5-5.1); Sodium 139 mmol/L (136-145); Troponin T (5th) Once 32 ng/L (0-10)
--- NOTE | 2022-02-21 07:34 | PM.PN ---
Subjective Subjective: Patient seen and examined this morning. Patient doing well with no issues. Got up yesterday. Patient states she worked with therapy. Dressings clean dry and intact with her right hip. She is in a abduction pillow while lying in bed. Pain controlled with medications. Hemoglobin this morning 7.3. She denies any lightheadedness or symptoms. Axillary view yesterday from right shoulder demonstrates located glenohumeral joint with some superior migration. At this standpoint I feel patient has a flareup of her arthritis which is evident on her x-rays but no acute findings present. Vitals/I&O/Wt Last Vital Signs Temp 97.5 F L 02/21/22 03:48 Pulse 66 02/21/22 06:00 Resp 16 02/21/22 03:48 BP 145/72 02/21/22 03:48 Pulse Ox 97 02/21/22 03:48 O2 Del Method 02/20/22 20:26 O2 Flow Rate 3 02/19/22 20:31 02/20/22 02/21/22 02/21/22 22:59 06:59 14:59 Intake Total 50 / 2170 Output Total Balance 50 / 2170 -0 Weight last 48 hrs Weight 137 lb 14.4 oz Physical Exam Narrative: Examination right hip demonstrates dressings clean dry and intact right thigh compartments are soft and compressible. Patient is able to wiggle toes plantarflex and dorsiflex ankle. Distal pulses palpable. Patient not sensation tact light touch of the right lower extremity. Abduction pillow in place Urinary Catheter Management: Morales: Cath Placed During This Visit: yes, but has since been removed by the nurse Reason for Continuing Indwelling Catheter: Perioperative Use in Selected Surgeries Urinary Catheter Date of Insertion: 02/18/22 Urinary Catheter Time of Insertion: 14:00 Date Urinary Catheter Removed: 02/20/22 Time Urinary Catheter Discontinued: 10:01 Data : 02/21/22 04:25 02/21/22 04:25 A&P Assessment and plan (1) Displaced fracture of right femoral neck: Status: Acute Plan - Weightbearing as tolerated right lower extremity -DVT prophylaxis?Lovenox -A.m. labs -Dressing clean dry and intact leave in place unless saturated -PT/OT -Internal medicine is primary and appreciate their medical management -Shoulder x-ray reviewed from yesterday no acute findings -Posterior hip precautions -No further orthopedic surgical intervention required at this time. Attestations Medical Necessity Statement*: Patient sustained right femoral neck fracture requiring hospitalization for surgery and iron therapy. Coding Level of Care Code Acute Route Driver for [facility] Diagnoses Displaced fracture of right femoral neck S72.001A
--- NOTE | 2022-02-21 08:56 | PC.SOCIAL ---
IMM Update pg 2 of IMM updated and reviewed w/ patient. Copy provided and Copy dated, initialed and placed in chart.
[2022-02-21] MEDS: calcium carb-vit d 600mg/400unit 1 Tablet 1 EACH PO ×2 (09:05→17:55)
[2022-02-21] MEDS: sennosides-docusate Tablet 2 TAB PO ×2 (09:05→17:55)
[2022-02-21] MEDS: iron polysaccharide complex 150 mg Capsule PO ×2 (09:05→17:55)
[2022-02-21] MEDS: chlorhexidine gluconate 0.12% Btl 473 mL 30 ML MUCOUS MEM ×3 (09:06→17:54)
[2022-02-21] MEDS: multivitamin therapeutic Tablet 1 TAB PO (09:06)
[2022-02-21] MEDS: cholecalciferol (vitamin D3) 1,000 unit Tablet 1000 UNIT PO (09:06)
[2022-02-21] MEDS: amiodarone 200 mg Tablet 100 MG PO (09:06)
[2022-02-21] MEDS: mupirocin oint 22 gm 1 APPLIC NASAL ×2 (09:07→17:55)
[2022-02-21] MEDS: metoprolol tartrate 50 mg Tablet PO ×2 (09:08→21:54)
[2022-02-21] MEDS: oxyCODONE 5 mg IR Tab/Cap PO ×2 (09:11→17:54)
[2022-02-21] MEDS: sodium chloride 0.9% (100 ml) 100 ML 10 ML (10:46)
--- NOTE | 2022-02-21 11:00 | PC.CHAP ---
Pastoral Care Encounter/Spiritual Assessment Type of Contact [] Declined railroad surveyor visit [] Patient/Family/Request visit [] Outpatient visit [] Follow-up visit [] Physician referral [] Code/Alert [x] Routine visit [] Staff referral [] Actively dying [] Patient sleeping [] Family support [] [] Out of room [] Palliative care [] [] Receiving care in room [] Pre-surgical visit [] Trauma [] Long length of stay [] ICU visit [] Other: Relational/Emotional Strength [x] Patient feels connected with others/family/visitors/staff [] Distress [] Loneliness/isolation [] Abandonment Spirituality of Patient [x] Person of Avelina [] Attends Shinto of their Avelina [x] Believes in Prayer [] Reads Bible or Gnosticism materials [] There are Spiritual issues to be addressed Research Environmental Scientist Interventions xx [] Prayer [x] Active listening [] Non-anxious presence [] Spiritual/emotional support [] Crisis/trauma care [] Spiritual counseling [] Bereavement support [] Provided bereavement packet [] Provided Bible/devotional materials [] Provided toy/stuffed animal, coloring book to patient or family member [] Provided Communion [] Anointing/[place] [] Salvation [x] Completed spiritual assessment [] Other: Impact on Illness or Injury [] Angry [] Fearful [] Anxious [] Often cries [] Exhaustion [] Unable to work [] Unable to attend jehovah's witness [] Unable to walk/stand [] Unable to read [] Unable to drive [] Unable to eat/drink [] Unable to sleep [] Unable to be with family [] Patient intubated [] Other: Summary Time spent with patient 10 min
--- NOTE | 2022-02-21 13:12 | P.PN_ITS ---
Subjective Subjective: She reports he is doing okay. Perhaps minimally lightheaded. No current pain. Discussed with her regarding worsening anemia. Discussed regarding blood transfusion, risks. She is agreeable. Vitals/I&O/Wt Last Vital Signs Temp 98.5 F 02/21/22 12:07 Pulse 62 02/21/22 12:07 Resp 18 02/21/22 12:07 BP 157/62 02/21/22 12:07 Pulse Ox 97 02/21/22 12:07 O2 Del Method 02/21/22 11:59 O2 Flow Rate 2 02/21/22 11:21 02/20/22 02/21/22 02/21/22 22:59 06:59 14:59 Intake Total 50 / 2170 120 / 120 Output Total / Balance 50 / 2170 -2149 120 / 120 Weight last 48 hrs Weight 62.55 kg Physical Exam Const: COMMON NORMALS: patient oriented x3 and alert GENERAL APPEARANCE: cooperative ORIENTATION/CONSCIOUSNESS: Yes awake HENMT: COMMON NORMALS: oropharynx normal Neck/C-Spine: COMMON NORMALS: no JVD Resp: COMMON NORMALS: normal respiratory effort and clear to auscultation bilaterally AUSCULTATION: clear to auscultation bilaterally Cardio: COMMON NORMALS: no JVD, regular rhythm, S1 normal heart sound present, S2 normal heart sound present and No murmurs present (Cardio) RHYTHM: regular rhythm HEART SOUNDS: S1 normal heart sound present and S2 normal heart sound present GI: COMMON NORMALS: Normal to inspection, nondistended, normoactive bowel sounds present, Soft to palpation and non-tender PALPATION: Yes Soft to p alpation Extremity: COMMON NORMALS: no joint enlargement and no pedal edema NARRATIVE EXTREMITY EXAM: Mild swelling right thigh. No significant bruising. No erythema at wound. Neuro: COMMON NORMALS: patient oriented x3 and moves all extremities SENSORIUM/ORIENTATION: Yes alert Skin: COMMON NORMALS: no rashes or lesions noted GENERAL SKIN EXAM: no rashes or lesions noted Urinary Catheter Management: Morales: Cath Placed During This Visit: yes, but has since been removed by the nurse Reason for Continuing Indwelling Catheter: Perioperative Use in Selected Surgeries Urinary Catheter Date of Insertion: 02/18/22 Urinary Catheter Time of Insertion: 14:00 Date Urinary Catheter Removed: 02/20/22 Time Urinary Catheter Discontinued: 10:01 Data : 02/21/22 04:25 02/21/22 04:25 A&P Assessment and plan (1) Anemia: Acute on chronic anemia with blood loss following fracture, hip surgery. Hemoglobin down to 7.3. Given continued decrease will transfuse 1 unit as per discussion with her. Reassess hemoglobin. Check Hemoccult. Status: Acute (2) Closed subtrochanteric fracture of right femur: Troponin with minimal change. She remains chest pain-free. Recheck value in the morning. Hemoglobin down to 8.3. Recheck level. Did well with PT. Follow-up blood count. Lovenox VT prophylaxis. Discharge planning. Requires significant assistance, plans for rehabilitation at SNF after discharge. Status: Acute (3) UTI (urinary tract infection): Ceftriaxone. GNR in urine culture. Status: Acute (4) HTN (hypertension): Blood pressures are doing better with improvement in pain. Continue metoprolol. Renal function with improvement, creatinine down to 1.7. If remained steady, resume lisinopril. Status: Acute Plan A. fib: On aspirin, not on anticoagulation due to history of prior falls. Metoprolol. Amiodarone. CKD: Creatinine appears close to her baseline slightly worse than baseline. Last creatinine from 2020 was 1.5. Hold lisinopril. Avoid NSAIDs, other potential nephrotoxic medications. Stop IV fluid. Reassess renal function. Hypothyroidism: Levothyroxine. HLD Attestations Medical Necessity Statement*: Continue admission for assessment of management following right hip fracture and repair, acute on chronic anemia, UTI, discharge planning and arrangement. Coding Level of Care Code Acute Marine Firer for Jose Mckeon Diagnoses Anemia D64.9 Closed subtrochanteric fracture of right femur S72.21XA UTI (urinary tract infection) N39.0 HTN (hypertension) I10
[2022-02-21] MEDS: cefTRIAXone 1,000 MG in sodium chloride 0.9% (plus) 50 ML 100 MG IV (15:03)
[2022-02-21 18:45] LABS: SARS Covid-2 Antigen Negative (Negative)
[2022-02-21] MEDS: enoxaparin 30 mg/0.3 mL Syringe SUBCUT (21:54)
[2022-02-22] VITALS: BP 166/74; PULSE 62; RESP 17; TEMP 36.6; O2SAT 98
[2022-02-22 04:00] VITALS: BP 183/67; PULSE 70; RESP 17; TEMP 36.9; O2SAT 95
[2022-02-22 04:31] LABS: Basophils % 0.4 %; Eosinophils # 0.5 10^3/uL (0.0-0.8); Eosinophils % 5.3 %; Hematocrit 27.6 % (37.0-47.0); Hemoglobin 8.5 g/dL (11.5-15.3); Lymphocytes % 10.2 %; Mean Corpuscular HGB Conc 30.8 g/dL (30.0-36.0); Mean Corpuscular Hemoglobin 27.8 pg (28.0-34.0); Mean Corpuscular Volume 90.2 fl (81-99); Mean Platelet Volume 12.1 fL (7.4-10.4); Monocytes # 0.7 10^3/uL (0.2-0.9); Monocytes % 7.1 %; Neutrophils # 7.45 10^3/uL (1.8-7.7); Neutrophils % 76.4 %; Nucleated Red Blood Cells % 0 %; Platelet Count 183 10^3/cmm (130-400); Red Blood Count 3.06 10^6/uL (4.1-5.3); Red Cell Distribution Width 16.1 % (12.1-15.1); White Blood Count 9.8 10^3/uL (4.0-10.0)
[2022-02-22 04:49] LABS: Anion Gap 10.6 (5-19); Blood Urea Nitrogen 44 mg/dL (8-23); Calcium 8.7 mg/dL (8.5-10.5); Carbon Dioxide 23 mmol/L (22-29); Chloride 108 mmol/L (98-107); Glucose 88 mg/dL (65-115); Osmolality Calculated 295 mOsm/kg (285-295); Potassium 4.6 mmol/L (3.5-5.1); Sodium 137 mmol/L (136-145)
[2022-02-22] MEDS: acetaminophen 500 mg Tablet 1000 MG PO ×2 (05:00→11:24)
[2022-02-22 06:14] VITALS: RESP 12; O2SAT 94
[2022-02-22] MEDS: oxyCODONE 5 mg IR Tab/Cap PO (06:14)
--- NOTE | 2022-02-22 07:15 | P.PN_ITS ---
Subjective Subjective: Patient seen and examined this morning. Patient doing well. Still complains of some pain when she mobilizes however she has been weightbearing and working with physical therapy. Dressing is clean dry and intact. Hip abduction pillow in place. Patient did receive 1 unit PRBC yesterday and hemoglobin responded well and 8.5 today. From my standpoint no further orthopedic surgical intervention required at this time. Vitals/I&O/Wt Last Vital Signs Temp 98.4 F 02/22/22 04:00 Pulse 70 02/22/22 04:00 Resp 12 02/22/22 06:14 BP 183/67 02/22/22 04:00 Pulse Ox 94 02/22/22 06:14 O2 Del Method 02/21/22 19:48 O2 Flow Rate 3 02/21/22 20:00 02/21/22 02/22/22 02/22/22 22:59 06:59 14:59 Intake Total 290 / 880 Output Total 500 / 500 275 / 775 Balance -210 / 380 -275 / 105 Weight last 48 hrs Weight 142 lb 14.4 oz Physical Exam Narrative: Examination: Dressing to the right hip clean dry and intact. Abduction pillow on in place while in bed. Patient is able to wiggle her toes plantarflex dorsiflex ankle sensation intact light touch to the SPN/DPN/tibial/saphenous/sural nerve distribution. DP pulse 2+. Right lower extremity compartments are soft and compressible. Toes are warm well perfused. Urinary Catheter Management: Morales: Cath Placed During This Visit: yes, but has since been removed by the nurse Reason for Continuing Indwelling Catheter: Acute Urinary Retention or Obstruction Urinary Catheter Date of Insertion: 02/18/22 Urinary Catheter Time of Insertion: 14:00 Date Urinary Catheter Removed: 02/20/22 Time Urinary Catheter Discontinued: 10:01 Data : 02/22/22 03:58 02/22/22 03:58 Micro: Microbiology 02/18/22 13:58 Urine Culture - Final Urine,Clean Catch Enterobacter aerogenes A&P Assessment and plan (1) Displaced fracture of right femoral neck: Status: Acute Plan - PT/OT -Weightbearing as Tolerated right lower extremity -Posterior hip precautions -Patient received 1 unit PRBC yesterday per primary team hemoglobin 8.5 today -Dressing may stay on in place and only change when saturated -Hip abduction pillow in place while in bed -Pain control -DVT prophylaxis -Patient stable for discharge from orthopedic standpoint. Orthopedic surgery team will sign off patient at this time and follow peripherally. If there is any questions pertaining to patient's care feel free to contact myself Dr. Hill. Appreciate you allowing me to partake in the care of this patient. I will have her seen in my office in 2 weeks from surgery for repeat x-rays and staple removal. Patient understands and agrees with current plan. All questions answered. Attestations Medical Necessity Statement*: Patient sustained right hip fracture requiring intervention Coding Level of Care Code Acute Technology Sales Specialist for winston Mckeon Diagnoses Displaced fracture of right femoral neck S72.001A
[2022-02-22 07:32] VITALS: BP 187/72; PULSE 66; RESP 16; TEMP 36.8; O2SAT 97
[2022-02-22] MEDS: amiodarone 200 mg Tablet 100 MG PO (09:18)
[2022-02-22] MEDS: cholecalciferol (vitamin D3) 1,000 unit Tablet 1000 UNIT PO (09:18)
[2022-02-22] MEDS: sennosides-docusate Tablet 2 TAB PO (09:18)
[2022-02-22] MEDS: multivitamin therapeutic Tablet 1 TAB PO (09:18)
[2022-02-22] MEDS: calcium carb-vit d 600mg/400unit 1 Tablet 1 EACH PO (09:19)
[2022-02-22] MEDS: iron polysaccharide complex 150 mg Capsule PO (09:20)
[2022-02-22] MEDS: FUROsemide 10 mg/mL SDV 2mL 20 MG IVP (09:21)
[2022-02-22] MEDS: metoprolol tartrate 50 mg Tablet PO (09:22)
[2022-02-22] MEDS: chlorhexidine gluconate 0.12% Btl 473 mL 30 ML MUCOUS MEM (09:22)
[2022-02-22] MEDS: ciprofloxacin 400 MG/200 ML PREMIX 200 MG IV (09:23)
[2022-02-22 11:33] VITALS: BP 165/69; PULSE 72; RESP 18; TEMP 36.6; O2SAT 94
--- NOTE | 2022-02-22 12:05 | PM.DCS ---
Discharge Providers Date of Admission: 02/18/22 14:42 Date of Discharge: February 22, 2022 Attending Provider at Admission: Donal Way Attending Provider at Discharge: Giuseppe Solorzano MD Primary Care Provider: Jalyn Salas MD Diagnoses at Discharge Discharge Diagnosis (1) Displaced fracture of right femoral neck: Status: Acute Reason for Visit Reason for Visit: FALL/ HIP PAIN Hospital Course Hospital Course Rebecca is an 86-year-old white female who presented to the hospital with fracture of the right femur, following a fall. This appears to be a mechanical fall and not syncope. A urinary tract infection was also noted on admission for which Rocephin was started. Orthopedic surgery was consulted, and the patient underwent right hip hemiarthroplasty on February 19. She tolerated this well, and the rest of the time of her hospital stay was spent rehabilitation. She did have some anemia during her hospital stay and received 1 unit of packed red blood cells for hemoglobin of 7.3. This increased to 8.5. This was consistent with acute postoperative blood loss anemia. Creatinine was noted to be slightly high during hospital stay, 1.7 at discharge. I suspect this is her baseline but will need to be followed up as an outpatient. Discharge creatinine 8.5. She was stable enough for discharge to nursing home facility on February 22. She will get a CBC and BMP in approximately 3 days. Physical Exam Narrative: General exam is an elderly female in no apparent distress Neck is supple no lymphadenopathy thyromegaly Cardiovascular regular rate and rhythm with a 2/6 systolic murmur Lungs clear no wheezing or crackles Abdomen is soft, positive bowel sounds Extremities no cyanosis clubbing or edema, right hip dressing clean and dry Skin no rash Urinary Catheter Management: Morales: Cath Placed During This Visit: yes, but has since been removed by the nurse Reason for Continuing Indwelling Catheter: Acute Urinary Retention or Obstruction Urinary Catheter Date of Insertion: 02/18/22 Urinary Catheter Time of Insertion: 14:00 Date Urinary Catheter Removed: 02/20/22 Time Urinary Catheter Discontinued: 10:01 Discharge Data Studies Completed and Pending Completed Studies During Hospitalization Category Date Time Status XR chest 1V portable [id number] Stat Exams 02/18/22 13:26 Completed XR femur RT min 2V* [id number] Stat Exams 02/18/22 14:13 Completed XR hip RT 2-3V wo/w pel* [id number] Stat Exams 02/18/22 13:07 Completed XR knee RT 1-2V [id number] Stat Exams 02/18/22 14:13 Completed XR pelvis 1-2V* [id number] Routine Exams 02/19/22 09:54 Completed XR pelvis 1-2V* [id number] Stat Exams 02/18/22 14:13 Completed XR shoulder RT 1V [id number] Routine Exams 02/20/22 07:25 Completed XR shoulder RT min 2V* [id number] Stat Exams 02/18/22 13:07 Completed Pending at discharge Category Date Time Status Occult Blood Stool [Immunochemical Fecal OCB] Routine Lab 02/21/22 13:15 Uncollected Radiology Impressions Hip/Pelvis X-Ray 02/18/22 13:07 IMPRESSION: 1. Displaced subcapital fracture of the right hip. Chest X-Ray 02/18/22 13:26 IMPRESSION: 1. Extensive the chronic pulmonary interstitial changes in both lungs with areas of chronic atelectasis. 2. No acute cardiopulmonary process is suspected. 3. Mild cardiac enlargement unchanged. Possible small hiatal hernia. Femur X-Ray 02/18/22 14:13 IMPRESSION: 1. Subcapital fracture of the right hip. No other fracture of the femur noted. Knee X-Ray 02/18/22 14:13 IMPRESSION: 1. Degenerative change and chondrocalcinosis. No fracture or dislocation. Pelvis X-Ray 02/19/22 09:54 IMPRESSION: Normal appearing right total hip arthroplasty. Shoulder X-Ray 02/20/22 07:25 IMPRESSION: Single axillary view of the shoulder appears unremarkable. Laboratory Results WBC 9.8 10^3/uL (4.0-10.0) 02/22/22 03:58 RBC 3.06 10^6/uL (4.1-5.3) L 02/22/22 03:58 Hgb 8.5 g/dL (11.5-15.3) L 02/22/22 03:58 Hct 27.6 % (37.0-47.0) L 02/22/22 03:58 MCV 90.2 fl (81-99) 02/22/22 03:58 MCH 27.8 pg (28.0-34.0) L 02/22/22 03:58 MCHC 30.8 g/dL (30.0-36.0) 02/22/22 03:58 RDW 16.1 % (12.1-15.1) H 02/22/22 03:58 Plt Count 183 10^3/cmm (130-400) 02/22/22 03:58 MPV 12.1 fL (7.4-10.4) H 02/22/22 03:58 Neut % (Auto) 76.4 % 02/22/22 03:58 Lymph % (Auto) 10.2 % 02/22/22 03:58 [place] % (Auto) 7.1 % 02/22/22 03:58 Eos % (Auto) 5.3 % 02/22/22 03:58 Baso % (Auto) 0.4 % 02/22/22 03:58 Neut # (Auto) 7.45 10^3/uL (1.8-7.7) 02/22/22 03:58 Lymph # (Auto) 1.0 10^3/uL (0.8-4.8) 02/22/22 03:58 [place] # (Auto) 0.7 10^3/uL (0.2-0.9) 02/22/22 03:58 Eos # (Auto) 0.5 10^3/uL (0.0-0.8) 02/22/22 03:58 Baso # (Auto) 0.0 10^3/uL (0.0-0.1) 02/22/22 03:58 Nucleated RBC % (auto) 0 % 02/22/22 03:58 Nucleated RBCs # 0.0 /100WBC 02/22/22 03:58 PT 13.10 SECONDS (12.1-14.9) 02/18/22 13:20 INR 0.96 (0.8-1.2) 02/18/22 13:20 APTT 24.9 SECONDS (23.9-36.7) 02/18/22 13:20 Sodium 137 mmol/L (136-145) 02/22/22 03:58 Potassium 4.6 mmol/L (3.5-5.1) 02/22/22 03:58 Chloride 108 mmol/L (98-107) H 02/22/22 03:58 Carbon Dioxide 23 mmol/L (22-29) 02/22/22 03:58 Anion Gap 10.6 (5-19) 02/22/22 03:58 BUN 44 mg/dL (8-23) H 02/22/22 03:58 Creatinine 1.7 mg/dL (0.5-0.9) H 02/22/22 03:58 GFR Calculation Not Reportable 02/22/22 03:58 Glucose 88 mg/dL (65-115) 02/22/22 03:58 Calculated Osmolality 295 mOsm/kg (285-295) 02/22/22 03:58 Calcium 8.7 mg/dL (8.5-10.5) 02/22/22 03:58 Total Bilirubin 0.2 mg/dL (0.15-1.2) 02/18/22 13:20 AST 23 U/L (0-32) 02/18/22 13:20 ALT 13 U/L (0-33) 02/18/22 13:20 Alkaline Phosphatase 65 U/L (35-105) 02/18/22 13:20 Troponin T Gen 5 ng/L 32 ng/L (0-10) H 02/21/22 04:25 Total Protein 6.7 g/dL (6.6-8.7) 02/18/22 13:20 Albumin 3.6 g/dL (3.5-5.2) 02/18/22 13:20 Globulin 3.1 g/dL (1.3-4.6) 02/18/22 13:20 Urine Color Yellow (Yellow) 02/18/22 13:58 Urine Appearance Clear (CLEAR) 02/18/22 13:58 Urine pH 6 (5-7) 02/18/22 13:58 Ur Specific [place] 1.015 (1.005-1.030) 02/18/22 13:58 Urine Protein 3+ (Negative) H 02/18/22 13:58 Urine Glucose (UA) Norm (Normal) 02/18/22 13:58 Urine Ketones Negative (Negative) 02/18/22 13:58 Urine Blood Trace (Negative) H 02/18/22 13:58 Urine Nitrate Positive (Negative) H 02/18/22 13:58 Urine Bilirubin Neg (Negative) 02/18/22 13:58 Urine Urobilinogen Norm mg/dL (Negative) 02/18/22 13:58 Ur Leukocyte Esterase Trace (Negative) H 02/18/22 13:58 Urine RBC 0-4 /hpf (0-2) H 02/18/22 13:58 Urine WBC 25-40 /hpf (0-5) H 02/18/22 13:58 Ur Squamous Epith Cells 0-4 /hpf (0-5) H 02/18/22 13:58 Amorphous Sediment Not Reportable 02/18/22 13:58 Urine Bacteria 2+ /hpf (NONE) H 02/18/22 13:58 SARS-CoV-2 Ag (Rapid) Negative (Negative) 02/21/22 18:23 Blood Type O Positive 02/18/22 16:20 Rho(D) Type Positive 02/18/22 16:20 Antibody Screen Negative 02/18/22 16:20 Crossmatch See Detail 02/18/22 16:20 Vitals Last Vital Signs Temp 97.9 F 02/22/22 11:33 Pulse 72 02/22/22 11:33 Resp 18 02/22/22 11:33 BP 165/69 02/22/22 11:33 Pulse Ox 94 02/22/22 11:33 O2 Del Method 02/22/22 11:33 O2 Flow Rate 1 02/22/22 09:50 Discharge Plan Discharge Patient Disposition: Xfer SNF Condition: Stable Prescriptions: New oxycodone 5 mg tablet 5 mg PO Q6H PRN (Reason: pain) 7 Days Qty: 28 0RF enoxaparin 30 mg/0.3 mL Syringe 30 mg SUBCUT Q24H 30 Days Qty: 9 0RF calcium carbonate-vitamin D3 600 mg-10 mcg (400 unit) Tablet 1 ea PO BID 30 Days Qty: 60 0RF ondansetron 4 mg tablet,disintegrating 4 mg PO DAILY PRN (Reason: nausea and vomiting) 5 Days Qty: 10 0RF aspirin 81 mg capsule 81 mg PO DAILY Qty: 30 0RF ciprofloxacin HCl [Cipro] 500 mg tablet 500 mg PO BID Qty: 10 0RF lisinopril 10 mg tablet 10 mg PO DAILY Qty: 30 0RF Continued metoprolol tartrate 50 mg tablet 50 mg PO BID cholecalciferol (vitamin D3) 125 mcg (5,000 unit) capsule 125 mcg PO DAILY levothyroxine 50 mcg tablet 50 mcg PO DAILY amiodarone 200 mg tablet 100 mg PO DAILY vitamin B complex [B Complex-Vitamin B12] Tablet 1 tab PO DAILY ferrous sulfate 325 mg (65 mg iron) tablet 325 mg PO DAILY Discontinued aspirin 325 mg Tablet 325 mg PO DAILY lisinopril 20 mg Tablet 20 mg PO DAILY Discharge Orders: Discharge Order (Routine); Ordered 02/22/22 Ordered By: Giuseppe Solorzano Referrals: [facility] [Outside] Jalyn Salas MD [Primary Care Provider] - 4-7 days Rubin Hill DO [Physician] - Discharge Diet: Usual diet Discharge Activity: Limit activity as instructed Activity Restrictions/Additional Instructions: Orthopedic discharge instructions: Please maintain posterior hip precautions, avoid flexion of hip and internal rotation as well as bringing the leg adducted past midline Weightbearing as tolerated right lower extremity Take pain medication as prescribed Take blood clot prevention medication as prescribed Supplement with Citracal vitamin D for bone health Take antinausea medication as needed Keep incision clean dry and intact leave dressings on and in place until follow-up or may change if becomes saturated Follow-up with the orthopedic office with Dr. Hill in 2 weeks Follow-up with primary care provider at nursing home [facility] JACQUELINE CURRY in 3 days Follow-up with orthopedic physician as per their instruction Discharge Attestations Time Spent in Discharge Care*: greater than 30 min Status at Discharge: Cognitive status at discharge: cognitively intact, Behavioral status at discharge: cooperative, Quality Metrics Clinical Quality Measures [ No reported AMI, CVA or VTE this stay] Coding Level of Care Code Acute g FW SASCHA note Diagnoses Displaced fracture of right femoral neck S72.001A
--- NOTE | 2022-02-22 13:21 | PC.NURSE ---
Report called to RN at [facility] at 1322.
[2022-02-22 14:15] VITALS: BP 165/69; PULSE 72; RESP 18; TEMP 36.6; O2SAT 94
== END 2022-02-22 14:00 | disposition skilled nursing facility (03) | DRG 522 ==
LOC: ER 14:21 → MEDSURG 16:28
PROVIDERS: Student in an Organized Health Care Education/Training Program; Admitting Provider Internal Medicine; Emergency Provider Family Medicine; PCP Internal Medicine; Visit Provider Internal Medicine
PROC: 0SRR0J9 Replacement of Right Hip Joint, Femoral Surface with Synthetic Substitute, Cemented, Open Approach (ICD-10-PCS; CPT 27125; principal; 2022-02-19 08:00)
DX: S72.011A Unspecified intracapsular fracture of right femur, initial encounter for closed fracture (principal); I13.0 Hypertensive heart and chronic kidney disease with heart failure and stage 1 through stage 4 chronic kidney disease, or unspecified chronic kidney disease; I50.32 Chronic diastolic (congestive) heart failure; N39.0 Urinary tract infection, site not specified; D62 Acute posthemorrhagic anemia; W01.0XXA Fall on same level from slipping, tripping and stumbling without subsequent striking against object, initial encounter; I48.91 Unspecified atrial fibrillation; Z86.73 Personal history of transient ischemic attack (TIA), and cerebral infarction without residual deficits; I25.10 Atherosclerotic heart disease of native coronary artery without angina pectoris; N18.1 Chronic kidney disease, stage 1; E78.5 Hyperlipidemia, unspecified; M25.511 Pain in right shoulder; K44.9 Diaphragmatic hernia without obstruction or gangrene; Z96.642 Presence of left artificial hip joint; I27.20 Pulmonary hypertension, unspecified; B96.89 Other specified bacterial agents as the cause of diseases classified elsewhere; E03.9 Hypothyroidism, unspecified; D63.1 Anemia in chronic kidney disease
CPT/HCPCS: 36415; 36430; 51702; 51798; 71045; 72170; 73020; 73030; 73502; 73552; 73560; 80048; 80053; 81001; 84484; 85025; 85610; 85730; 86850; 86900; 86920; 87077; 87086; 87186; 87426; 93005; 96365; 96372; 96375; 97110; 97116; 97161; 97166; 97530; 97535; 99285; C1776; J0696; J0744; J1580; J1644; J1650; J1940; J2270; J2405; J2704; J2710; J3010; J3490; J7030; P9016

== ENCOUNTER → 2022-03-04 09:58 | Outpatient (BNVA) | payer OTHER, SELFPAY | PROVIDERS: PCP Internal Medicine; Visit Provider Student in an Organized Health Care Education/Training Program | DX: Z96.641 Presence of right artificial hip joint (principal); M53.3 Sacrococcygeal disorders, not elsewhere classified | CPT/HCPCS: 73502; 99024 ==

== ENCOUNTER → 2022-04-01 13:12 | Outpatient (BNVA) | payer OTHER, MEDICARE, SELFPAY | PROVIDERS: PCP Internal Medicine; Visit Provider Student in an Organized Health Care Education/Training Program | DX: Z96.641 Presence of right artificial hip joint (principal) | CPT/HCPCS: 73502; 99024 ==

== ENCOUNTER → 2022-07-15 08:56 | Outpatient (BNVA) | payer MEDICARE, OTHER, SELFPAY | PROVIDERS: PCP Internal Medicine; Visit Provider Student in an Organized Health Care Education/Training Program | DX: Z96.641 Presence of right artificial hip joint (principal) | CPT/HCPCS: 73502; 99213 ==

== ENCOUNTER → 2022-12-26 10:44 | Outpatient (BNVA) | payer MEDICARE, OTHER, SELFPAY | PROVIDERS: PCP Internal Medicine; Visit Provider Internal Medicine Cardiovascular Disease | DX: I48.91 Unspecified atrial fibrillation (principal); E78.5 Hyperlipidemia, unspecified; I25.10 Atherosclerotic heart disease of native coronary artery without angina pectoris; I12.9 Hypertensive chronic kidney disease with stage 1 through stage 4 chronic kidney disease, or unspecified chronic kidney disease; N18.1 Chronic kidney disease, stage 1; Z86.73 Personal history of transient ischemic attack (TIA), and cerebral infarction without residual deficits | CPT/HCPCS: 99214 ==

== ENCOUNTER → 2023-02-23 09:08 | Outpatient (BNVA) | payer MEDICARE, OTHER, SELFPAY | PROVIDERS: PCP Internal Medicine; Visit Provider Physician Assistant | DX: Z96.641 Presence of right artificial hip joint (principal) | CPT/HCPCS: 73502; 99213 ==

== ENCOUNTER → 2023-09-26 11:12 | Outpatient (BNVA) | payer MEDICARE, OTHER, SELFPAY | PROVIDERS: PCP Internal Medicine; Visit Provider Dermatology | DX: D48.5 Neoplasm of uncertain behavior of skin (principal); L57.0 Actinic keratosis; L81.4 Other melanin hyperpigmentation; L57.8 Other skin changes due to chronic exposure to nonionizing radiation | CPT/HCPCS: 11102; 17000; 99203 ==

== ENCOUNTER 2023-11-08 08:02 | Inpatient (IN) | payer MEDICARE, OTHER, SELFPAY ==
[2023-11-08] VITALS (28 sets, daily range): BP systolic 160–240; BP diastolic 66–123; PULSE 59–89; RESP 12–27; TEMP 36.4–36.8; O2SAT 92–97; BMI 21.4
--- NOTE | 2023-11-08 08:49 | ECG_ITS ---
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 Measurements Intervals [place] Rate: 75 P: 5 DE: 161 QRS: 34 QRSD: 94 T: 55 QT: 437 QTc: 488 Interpretive Statements SINUS RHYTHM WITH OCCASIONAL SUPRAVENTRICULAR PREMATURE COMPLEXES LEFT VENTRICULAR HYPERTROPHY AND ST-T CHANGE [VOLTAGE CRITERIA PLUS ST/T ABNORMALITY] Compared to ECG 02/18/2022 13:55:51 No significant changes Electronically Signed On 11-08-2023 18:10:55 CDT by Kayode Francois M.D. [email or web address]
--- NOTE | 2023-11-08 08:50 | ED_ITS ---
HPI - Fall 2 General: Chief Complaint: Fall Stated Complaint: Found on Floor Time Seen by Provider: 11/08/23 08:30 Source: patient and EMS Mode of arrival: EMS Limitations: no limitations History of Present Illness: This patient was transported via EMS from her home. She they were called by the patient's sister with whom she lives when the sister found the patient on the floor this morning. The patient gives a history that she was getting out of bed last night and slid on the floor as she got out of bed just sliding down the edge of the bed to the floor. She states she did not hit her head and denies any injury. She states she did not have the ability to get back up from the floor to the bed. She denies any loss of consciousness chest pain shortness of breath or other symptoms. She lives alone with her sibling. She has a history of hypertension and osteoarthritis. She uses a walker to aid in her normal ambulation. Place fall occurred: home Loss of consciousness: None Symptoms prior to fall: none Associated symptoms-after fall: Denies abdominal pain, chest pain, headache(s) or neck pain Review of Systems 2 Const: Denies: fever(s) or chills ENMT: Denies: throat pain or odynophagia Card: Reports: irregular heart rhythm; Denies: chest pain, syncope, pre-syncope or dyspnea on exertion Resp: Denies: dyspnea, productive cough or non-productive cough GI: Denies: abdominal pain, nausea or vomiting : Denies: flank pain, difficulty voiding or dysuria Musc: Denies: neck pain, back pain, extremity pain or extremity swelling Skin/Breast: Denies: rash Neuro: Denies: headache(s), numbness in extremities or weakness in extremities Karan/Lymph: Denies: easy bruising or easy bleeding 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 of left hip Family History Father CAD (coronary artery disease) Sister CAD (coronary artery disease) Diabetes Brother Diabetes Other Hypertension Social History Smoking and tobacco/nicotine status: never used tobacco/nicotine Alcohol intake: never Substance/Drug Use: never Marital status: / Physical Exam 2 Narrative: EXAM NARRATIVE: The patient is elderly female but she is alert makes good eye contact answers questions appropriately in a fluent fashion. She is dressed and appears to be well-kept Const: COMMON NORMALS: no acute distress, average body habitus and patient oriented x3 GENERAL APPEARANCE: cooperative, comfortable and well kempt HENMT: COMMON NORMALS: normocephalic, atraumatic, Normal nasal mucous membranes and turbinates present, moist oral mucous membranes and oropharynx normal HEAD & SCALP: normocephalic and atraumatic FACE & SINUS: normal facial exam and face symmetric NOSE: Normal nasal mucous membranes and turbinates present Eye: COMMON NORMALS: Equal, round and reactive pupils present, EOMs intact bilaterally and conjunctivae normal CONJUNCTIVA: Yes conjunctivae normal P UPIL: Yes Equal, round and reactive pupils present Neck/C-Spine: COMMON NORMALS: full ROM, no lymphadenopathy and no JVD C ERVICAL SPINE: No Cervical spine tenderness, No step off deformity, No Paracervical muscle tenderness, No Paracervical spasm and No Trapezius muscle tenderness OTHER: She has normal active range of motion without any discomfort. Chest: COMMONS NORMALS: normal inspection of the chest Resp: COMMON NORMALS: normal respiratory effort, No retractions, No use of accessory muscles and clear to auscultation bilaterally AUSCULTATION: clear to auscultation bilaterally Cardio: COMMON NORMALS: no JVD, No murmurs present (Cardio) and Peripheral pulses 2+ throughout RHYTHM: abnormal rhythm irregularly irregular P ERIPHERAL PULSES: Peripheral pulses 2+ throughout GI: COMMON NORMALS: Normal to inspection, nondistended, normoactive bowel sounds present, Soft to palpation and non-tender PALPATION: Yes Soft to palpation : COMMON NORMALS: Yes no CVA tenderness BLADDER/KIDNEY EXAM: Yes no CVA tenderness Back/Pelvis: COMMON NORMALS: no CVA tenderness, thoracic and lumbar spine normal to inspection, no thoracic nor lumbar tenderness, thoraco-lumbar ROM normal and straight leg raise negative bilaterally Extremity: COMMON NORMALS: normal to inspection, full ROM, capillary refill normal and no calf tenderness NARRATIVE EXTREMITY EXAM: She has markedly distorted toenail of the great toe of her left foot Neuro: COMMON NORMALS: patient oriented x3, moves all extremities, no focal motor deficits and no sensory deficits noted CRANIAL NERVES: Yes CN normal except as noted Psych: COMMON NORMALS: mental status grossly normal APPEARANCE: Yes well kempt Skin: COMMON NORMALS: no rashes or lesions noted, no wounds and turgor normal GENERAL SKIN EXAM: no rashes or lesions noted and turgor normal Course 2 Reevaluation(s): Reevaluation #1: Family members are now present. They report that she seems to be a little less capable of transfers and independent ambulation than previously. Niece who is here states that she constantly tries to get her to drink fluids but she is not very successful. Nursing staff stated that she was unable to make transfers unaided when that was attempted here in the emergency department. She usually is able to ambulate to the bathroom and to the other room in the house with her walker according to family. Time: 11:00 Reevaluation #2: Patient's urinalysis is significant in that she has significant bacteria pyuria and blood suggestive of urinary tract infection along with a leukocytosis that may be accountable for her decline. She is generally weak and certainly at this point cannot go back to her current domicile with her elderly sister. Her pressures still remain elevated despite her normal medication we will have to trend is downward and not treat over treat them aggressively. Time: 13:28 Consultations: Consultation #1: Discussed with Dr. Burleson hospitalist who agreed with the plan Time: 13:28 Vital Signs: Vital signs: Vital Signs Temperature 97.5 F L 11/08/23 08:09 Pulse Rate 61 11/08/23 12:45 Respiratory Rate 17 11/08/23 12:45 Blood Pressure 222/75 11/08/23 12:45 Pulse Oximetry 95 11/08/23 12:45 Oxygen Delivery Me thod Room Air 11/08/23 09:20 MDM - Fall Medical Decision Making Patient transported by EMS from home after sister who with whom she lives discovers her on the floor. The patient slid out of bed when attempting to get out of bed last night and did not have the strength to get back into bed. She suffered no injury and denies any complaints. Her clinical exam did not reveal any obvious signs of injury she was oriented. Will go ahead and broaden the workup to include ensure no infection, SHRUB GROWER event etc. Additional imaging had revealed no evidence of acute changes. Her urinalysis was significantly abnormal consistent with lower and possibly upper urinary tract infection. This is associated with her leukocytosis and her clinical presentation are likely related. no evidence of other etiologies to her general weakness. Her troponin is initially elevated over the URL but did not change with serial troponin measurements. Unlikely ACS. She does have systolic hypertension which is chronic for her but she has not taken her medicines since last night so we have added her usual medications and we will trend that. She is being admitted placed in observation status for further hydration and IV antibiotics and monitoring which will likely include some rehabilitation Medical Records I reviewed the patient's medical records. Lab Data I reviewed the patient's lab results. 11/08/23 09:05 11/08/23 09:05 Radiology Impressions Chest X-Ray 11/08/23 11:01 IMPRESSION: No acute findings. Head CT 11/08/23 11:01 IMPRESSION: 1. No acute intracranial hemorrhage or edema. 2. Moderate atrophy with small vessel ischemic disease. Large remote LEFT temporal lobe infarct with encephalomalacia. 3. Mild progression of small vessel ischemic disease. Laboratory Results WBC 12.49 10^3/uL (3.29-11.43) H 11/08/23 09:05 RBC 3.95 10^6/uL (3.85-5.65) 11/08/23 09:05 Hgb 11.30 g/dL (11.27-16.99) 11/08/23 09:05 Hct 35.2 % (36-47) L 11/08/23 09:05 MCV 89.1 fl (85-98) 11/08/23 09:05 MCH 28.6 pg (27-33) 11/08/23 09:05 MCHC 32.1 g/dL (30-55) 11/08/23 09:05 RDW 13.4 % (12.1-15.1) 11/08/23 09:05 Plt Count 244 10^3/cmm (157-399) 11/08/23 09:05 MPV 11.5 fL (7.4-10.4) H 11/08/23 09:05 Neut % (Auto) 91.4 % 11/08/23 09:05 Lymph % (Auto) 4.4 % 11/08/23 09:05 [place] % (Auto) 3.6 % 11/08/23 09:05 Eos % (Auto) 0.0 % 11/08/23 09:05 Baso % (Auto) 0.2 % 11/08/23 09:05 Neut # (Auto) 11.41 10^3/uL (1.8-7.7) H 11/08/23 09:05 Lymph # (Auto) 0.6 10^3/uL (0.8-4.8) L 11/08/23 09:05 [place] # (Auto) 0.5 10^3/uL (0.2-0.9) 11/08/23 09:05 Eos # (Auto) 0.0 10^3/uL (0.0-0.8) 11/08/23 09:05 Baso # (Auto) 0.0 10^3/uL (0.0-0.1) 11/08/23 09:05 Nucleated RBC % (auto) 0 % 11/08/23 09:05 Nucleated RBCs # 0.0 /100WBC 11/08/23 09:05 Sodium 140 mmol/L (136-145) 11/08/23 09:05 Potassium 3.8 mmol/L (3.5-5.1) 11/08/23 09:05 Chloride 105 mmol/L (98-107) 11/08/23 09:05 Carbon Dioxide 22 mmol/L (22-29) 11/08/23 09:05 Anion Gap 16.8 (5-19) 11/08/23 09:05 BUN 40 mg/dL (8-23) H 11/08/23 09:05 Creatinine 1.6 mg/dL (0.5-0.9) H 11/08/23 09:05 GFR Calculation Not Reportable 11/08/23 09:05 Glucose 166 mg/dL (65-115) H 11/08/23 09:05 Calculated Osmolality 304 mOsm/kg (285-295) H 11/08/23 09:05 Calcium 9.6 mg/dL (8.5-10.5) 11/08/23 09:05 Total Bilirubin 0.3 mg/dL (0.15-1.2) 11/08/23 09:05 AST 29 U/L (0-32) 11/08/23 09:05 ALT 13 U/L (0-33) 11/08/23 09:05 Alkaline Phosphatase 61 U/L (35-105) 11/08/23 09:05 Creatine Kinase 540 U/L (26-192) H* 11/08/23 09:05 Troponin T Baseline 42 ng/L (0-10) H 11/08/23 09:05 Troponin T 120 Minute 40.00 ng/L (0-10) H 11/08/23 11:17 Delta Troponin T -2.00 ABS# (0-10) L 11/08/23 11:17 Total Protein 7.1 g/dL (6.6-8.7) 11/08/23 09:05 Albumin 3.6 g/dL (3.5-5.2) 11/08/23 09:05 Globulin 3.5 g/dL (1.3-4.6) 11/08/23 09:05 Urine Color Yellow (Yellow) 11/08/23 11:51 Urine Appearance Cloudy (CLEAR) A 11/08/23 11:51 Urine pH 5 (5-7) 11/08/23 11:51 Ur Specific [place] 1.020 (1.005-1.030) 11/08/23 11:51 Urine Protein 3+ (Negative) H 11/08/23 11:51 Urine Glucose (UA) Norm (Normal) 11/08/23 11:51 Urine Ketones Negative (Negative) 11/08/23 11:51 Urine Blood 3+ (Negative) H 11/08/23 11:51 Urine Nitrate Negative (Negative) 11/08/23 11:51 Urine Bilirubin Neg (Negative) 11/08/23 11:51 Urine Urobilinogen Norm mg/dL (Negative) 11/08/23 11:51 Ur Leukocyte Esterase 2+ (Negative) H 11/08/23 11:51 Urine RBC 5-10 /hpf (0-2) H 11/08/23 11:51 Urine WBC >100 /hpf (0-5) H 11/08/23 11:51 Ur Squamous Epith Cells 0-4 /hpf (0-5) H 11/08/23 11:51 Amorphous Sediment Not Reportable 11/08/23 11:51 Urine Bacteria 4+ /hpf (NONE) H 11/08/23 11:51 Urine Mucus Trace /hpf 11/08/23 11:51 All radiology interpretation(s) finalized by discharge EKG Data EKG 1: I personally reviewed and interpreted this EKG as follows: Interpretation: Contemporaneous review of resting EKG reveals a ventricular of 75 bpm. Is a MA interval of the 161 ms QRS S duration normal, corrected QT interval normal. Normal axis. Appears to be is consistent with sinus rhythm. Occasional extra supraventricular beats. No acute ST-T wave changes noted. Discharge Plan Discharge Patient Disposition: Placed in Observation Clinical Impression: Urinary tract infection, Chronic hypertension, Generalized weakness, Chronic kidney disease, Volume depletion Condition: Stable Prescriptions: No Action metoprolol tartrate 50 mg tablet 50 mg PO BID cholecalciferol (vitamin D3) 125 mcg (5,000 unit) capsule 125 mcg PO DAILY levothyroxine 50 mcg tablet 50 mcg PO DAILY amiodarone 200 mg tablet 100 mg PO DAILY ferrous sulfate 325 mg (65 mg iron) tablet 325 mg PO .every other day lisinopril 20 mg tablet 20 mg PO DAILY vitamin B complex Tablet 1 tab PO DAILY aspirin 81 mg capsule 81 mg PO DAILY Qty: 30 0RF Referrals: Jalyn Salas MD [Primary Care Provider] - Coding Level of Care Code ED [employer] 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
[2023-11-08] MEDS: metoprolol tartrate 50 mg Tablet PO ×2 (09:15→20:18)
[2023-11-08] MEDS: sodium chloride 0.9% 500 ML IV (09:15)
[2023-11-08] MEDS: lisinopril 10 mg Tablet PO (09:15)
[2023-11-08 09:28] LABS: Basophils % 0.2 %; Hematocrit 35.2 % (36-47); Lymphocytes # 0.6 10^3/uL (0.8-4.8); Lymphocytes % 4.4 %; Mean Corpuscular HGB Conc 32.1 g/dL (30-55); Mean Corpuscular Hemoglobin 28.6 pg (27-33); Mean Corpuscular Volume 89.1 fl (85-98); Mean Platelet Volume 11.5 fL (7.4-10.4); Monocytes # 0.5 10^3/uL (0.2-0.9); Monocytes % 3.6 %; Neutrophils # 11.41 10^3/uL (1.8-7.7); Neutrophils % 91.4 %; Nucleated Red Blood Cells % 0 %; Platelet Count 244 10^3/cmm (157-399); Red Blood Count 3.95 10^6/uL (3.85-5.65); Red Cell Distribution Width 13.4 % (12.1-15.1); White Blood Count 12.49 10^3/uL (3.29-11.43)
[2023-11-08 09:49] LABS: Alanine Aminotransferase 13 U/L (0-33); Albumin Level 3.6 g/dL (3.5-5.2); Alkaline Phosphatase 61 U/L (35-105); Anion Gap 16.8 (5-19); Aspartate Amino Transferase 29 U/L (0-32); Blood Urea Nitrogen 40 mg/dL (8-23); Calcium 9.6 mg/dL (8.5-10.5); Carbon Dioxide 22 mmol/L (22-29); Chloride 105 mmol/L (98-107); Creatinine Clr Calc Pharmacy 19.2998; Globulin 3.5 g/dL (1.3-4.6); Glucose 166 mg/dL (65-115); Osmolality Calculated 304 mOsm/kg (285-295); Potassium 3.8 mmol/L (3.5-5.1); Sodium 140 mmol/L (136-145); Total Bilirubin 0.3 mg/dL (0.15-1.2); Total Protein 7.1 g/dL (6.6-8.7)
[2023-11-08 09:52] LABS: Creatine Phosphokinase 540 U/L (26-192)
--- NOTE | 2023-11-08 11:01 | CT_ITS ---
WS: [id number] CT HEAD NONCONTRAST HISTORY: new weakness-gen and fall TECHNIQUE: Contiguous axial imaging performed through the brain in 2.5 mm imaging. Bone and soft tiss ue windows. Sagittal and coronal reformats reviewed. All CT scans at [facility] use at least one of these dose optimization techniques: automated exposure control; mA and/or kV adjustment per pa tient size (includes targeted exams where dose is matched to clinical indication); or iterative recon struction. DLP: 1244.57 mGy.cm COMPARISON: 03/25/2020 Moderate atrophy. Moderate small vessel ischemic disease. Prior LEFT temporal lobe infarct. Infarct e xtends along the corticospinal tract. There are additional small lacunar infarcts. Mild cerebellar at rophy. No hemorrhage. No inferior displacement the cerebellar tonsils. Ventricles: Normal size with no hydrocephalus. Paranasal sinuses: As visualized are clear. Mastoid air cells: Well pneumatized. Calvarium and scalp: Skull is intact with no soft tissue edema or swelling. CT/CT head wo con* [id number] IMPRESSION: 1. No acute intracranial hemorrhage or edema. 2. Moderate atrophy with small vessel ischemic disease. Large remote LEFT temp oral lobe infarct with encephalomalacia. 3. Mild progression of small vessel ischemic disease.
--- NOTE | 2023-11-08 11:01 | XRR_ITS ---
PROCEDURE INFORMATION: Exam: XR Chest Exam date and time: 11/08/2023 11:09 AM Age: 88 years old Clinical indication: Other: Weakness TECHNIQUE: Imaging protocol: Radiologic exam of the chest. Views: 1 view. COMPARISON: CR XR chest 1V portable [id number] 02/18/2022 1:32 PM FINDINGS: Lungs: Unremarkable. No consolidation. Pleural spaces: Unremarkable. No pleural effusion. No pneumothorax. Heart/Mediastinum: Large hiatal hernia. Bones/joints: Osteopenia. High-riding right humeral head, possibly indicating rotator cuff injury. Degenerative change in both shoulders. XR/XR chest 1V portable [id number] IMPRESSION: No acute findings.
--- NOTE | 2023-11-08 11:21 | PC.PHAR ---
PT STATES SHE FELL LAST NIGHT AND DID NOT GET HER EVENING DOSES OF MEDICATION. PT HAD NOT TAKEN AM DOSES TODAY BUT WAS GIVEN LISINOPRIL AND METOPROLOL TART. HERE, TODAY.
[2023-11-08 11:30] LABS: Troponin(5th) Baseline 42 ng/L (0-10)
[2023-11-08 13:03] LABS: Add Urine Microscopic? YES; Bilirubin Urine Neg (Negative); Blood Urine 3+ (Negative); Glucose Urine UA Norm (Normal); Ketones Urine Negative (Negative); Leukocyte Esterase Urine 2+ (Negative); Nitrate Urine Negative (Negative); Protein Urine 3+ (Negative); Urine Appearance Cloudy (CLEAR); Urine Color Yellow (Yellow); Urobilinogen Urine Norm (Negative); pH Urine 5 (5-7)
[2023-11-08 13:11] LABS: Bacteria Urine 4+ /hpf; Mucus Urine TRACE /hpf; Squamous Epithelial Cell Urine 0-4 /hpf (0-5); WBC Urine >100 /hpf (0-5)
[2023-11-08 13:12] LABS: Add Urine Culture? Yes
[2023-11-08] MEDS: lactated ringers 1,000 ML 999 ML IV (13:39)
[2023-11-08] MEDS: cefTRIAXone 2,000 MG in sodium chloride 0.9% (plus) 50 ML 100 MG IV (13:43)
[2023-11-08] MEDS: labetalol 5 mg/mL SDV 20mL 10 MG IVP (14:29)
--- NOTE | 2023-11-08 14:30 | ECG_ITS ---
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 Measurements Intervals [place] Rate: 70 P: 110 OR: 163 QRS: 48 QRSD: 94 T: 59 QT: 468 QTc: 507 Interpretive Statements SINUS RHYTHM WITH OCCASIONAL SUPRAVENTRICULAR PREMATURE COMPLEXES LEFT VENTRICULAR HYPERTROPHY AND ST-T CHANGE [VOLTAGE CRITERIA PLUS ST/T ABNORMALITY] Compared to ECG 11/08/2023 08:55:54 No significant changes Electronically Signed On 11-09-2023 0:12:13 CDT by Kayode Francois M.D. [email or web address] [email or web address].[employer]/store/OM/[id number]
--- NOTE | 2023-11-08 14:46 | CTR_ITS ---
PROCEDURE INFORMATION: Exam: CT Abdomen And Pelvis Without Contrast Exam date and time: 11/08/2023 3:31 PM Age: 88 years old Clinical indication: Other: Hematuria TECHNIQUE: Imaging protocol: Computed tomography of the abdomen and pelvis without contrast. Radiation optimization: All CT scans at this facility use at least one of these dose optimization techniques: automated exposure control; mA and/or kV adjustment per patient size (includes targeted exams where dose is matched to clinical indication); or iterative reconstruction. COMPARISON: CR XR hip RT 2-3V wo/w pel* [id number] 02/23/2023 9:09 AM RADIATION DOSE METRICS: Total DLP (mGy-cm): 366 FINDINGS: Lungs: Multiple small nodules in visualized right lower lobe and right middle lobe, not fully evaluated. Coronary arteries: Coronary artery calcifications. Liver: Normal. No mass. Gallbladder and bile ducts: Sludge in gallbladder. Pancreas: Normal. No ductal dilation. Spleen: Normal. No splenomegaly. Adrenal glands: Normal. No mass. Kidneys and ureters: Several lower pole probable cyst in the right kidney with heterogeneous increased density component centrally. No evidence for renal obstruction. No renal stones. Stomach and bowel: Left medial diaphragmatic hernia which includes majority of stomach and nondistended colon. Appendix: No evidence of appendicitis. Intraperitoneal space: Unremarkable. No free air. No significant fluid collection. Vasculature: Mild aortoiliac atherosclerotic disease. Lymph nodes: Unremarkable. No enlarged lymph nodes. Urinary bladder: Unremarkable as visualized. Reproductive: Unremarkable as visualized. Bones/joints: Bilateral hip replacements. Moderate nonacute T12 compression fracture with mild canal stenosis related to retropulsed bone. Lower lumbar degenerative changes. Mild stenosis at L4-L5. Soft tissues: Unremarkable. CT/CT abdomen pelvis wo con [id number] IMPRESSION: 1. Multiple small nodules in visualized right lower lobe and right middle lobe, not fully evaluated. Recommend dedicated chest CT. 2. Left medial diaphragmatic hernia which includes majority of stomach and nondistended colon. 3. Several lower pole probable cysts in the right kidney with heterogeneous increased density component centrally. Recommend ultrasound. 4. Moderate nonacute T12 compression fracture with mild canal stenosis related to retropulsed bone.
--- NOTE | 2023-11-08 16:16 | USR_ITS ---
PROCEDURE INFORMATION: Exam: US Retroperitoneal; Complete; Kidneys and Bladder Exam date and time: 11/08/2023 4:52 PM Age: 88 years old Clinical indication: Condition or disease; Kidney or ureter condition; Cyst of kidney; Additional info: Nodules, cysts TECHNIQUE: Imaging protocol: Real-time ultrasound of the retroperitoneum with image documentation. Complete exam focused on the kidneys and bladder. COMPARISON: CT abdomen pelvis wo con [id number] 11/08/2023 3:31 PM FINDINGS: Right kidney: Echogenic cortex. No stones. No hydronephrosis. Multiple right-sided renal cysts measuring up to 3.0 cm without concerning features. Right kidney measures 9.1 cm. Left kidney: Echogenic cortex. No stones. No hydronephrosis. Several small cysts. Left kidney measures 9.4 cm. Urinary bladder: Unremarkable. US/US renal BI* [id number] IMPRESSION: 1. Echogenic kidneys which may be a sign of medical renal disease. 2. Multiple cysts without concerning features.
--- NOTE | 2023-11-08 16:43 | P.HP_ITS ---
Providers/Chief Complaint 2 Admitting Physician: Anita Burleson MD Primary Care Provider: Jalyn Salas MD Chief Complaint: Found on Floor History of Present Illness Rebecca Duke is a 88 year old female with past medical history of atrial fibrillation, CVA, hypertension, hyperlipidemia, chronic kidney disease presented to the hospital with chief complaint ground-level fall. EMS was called to her home. Patient reports that she was getting out of bed last night slid to the floor. Denies hitting her head. Denies any loss of consciousness. In the ER she was noted to have abnormal UA. Imaging of the kidney was done did not show kidney stones. She does have history of chronic kidney disease. Her creatinine was noted to be mildly elevated close to her baseline. Review of Systems 2 General: Reports: 10 or more systems reviewed and unremarkable except in HPI and below Const: Reports: fatigue and malaise; Denies: fever(s) or chills Card: Denies: chest pain or palpitations Resp: Denies: dyspnea or productive cough Skin/Breast: Denies: rash or pruritus Medications/Allergies Home Medications Medication Instructions Recorded Confirmed Last Taken Type cholecalciferol (vitamin D3) 125 125 mcg PO DAILY 12/18/19 11/08/23 11/07/23 History mcg (5,000 unit) capsule levothyroxine 50 mcg tablet 50 mcg PO DAILY 12/18/19 11/08/23 11/07/23 History metoprolol tartrate 50 mg tablet 50 mg PO BID 12/18/19 11/08/23 11/07/23 History amiodarone 200 mg tablet 100 mg PO DAILY 07/15/20 11/08/23 11/07/23 History aspirin 81 mg capsule 81 mg PO DAILY #30 caps 02/22/22 11/08/23 11/07/23 Rx ferrous sulfate 325 mg (65 mg 325 mg PO .every other day 07/15/22 11/08/23 11/07/23 History iron) tablet lisinopril 20 mg tablet 20 mg PO DAILY 11/08/23 11/08/23 11/07/23 History vitamin B complex 1 tab PO DAILY 11/08/23 11/08/23 11/07/23 History Allergies Allergy/AdvReac Type Severity Reaction Status Date / Time Nitrofuran Analogues Allergy Unknown Unknown Verified 11/08/23 08:17 PFSH Acute 2 PFSH: Medical History Displaced fracture of right femoral neck Closed subtrochanteric fracture of right femur Hyperlipidemia HTN (hypertension) CVA (cerebral vascular accident) Atrial fibrillation CKD (chronic kidney disease) stage 1, GFR 90 ml/min or greater Anticoagulant long-term use Surgical History History of hemiarthroplasty of right hip History of hemiarthroplasty of left hip Family History Father CAD (coronary artery disease) Sister CAD (coronary artery disease) Diabetes Brother Diabetes Other Hypertension Social History Smoking and tobacco/nicotine status: never used tobacco/nicotine Alcohol intake: never Substance/Drug Use: never Marital status: / Vitals/I&O/Wt Last Vital Signs Temp 97.5 F L 11/08/23 08:09 Pulse 75 11/08/23 15:00 Resp 27 H 11/08/23 15:00 BP 198/76 11/08/23 15:00 Pulse Ox 93 11/08/23 15:00 O2 Del Method Room Air 11/08/23 09:20 11/08/23 11/08/23 11/08/23 06:59 14:59 22:59 Intake Total 550 / 550 Balance 550 / 550 Weight last 48 hrs Weight 117 lb Physical Exam 2 Const: COMMON NORMALS: no acute distress and patient oriented x3 Neck/C-Spine: COMMON NORMALS: full ROM and supple Resp: COMMON NORMALS: normal respiratory effort and No retractions Cardio: COMMON NORMALS: no JVD, regular rate and regular rhythm GI: COMMON NORMALS: Normal to inspection, nondistended, normoactive bowel sounds present and Soft to palpation Neuro: SENSORIUM/ORIENTATION: Yes alert, Yes oriented to person, Yes oriented to place and Yes oriented to time Data 11/08/23 09:05 11/08/23 09:05 CT Head: Radiologist's impression: IMPRESSION: 1. No acute intracranial hemorrhage or edema. 2. Moderate atrophy with small vessel ischemic disease. Large remote LEFT temporal lobe infarct with encephalomalacia. 3. Mild progression of small vessel ischemic disease. A&P Assessment and plan (1) Fall: (2) Rhabdomyolysis: (3) Atrial fibrillation: (4) Chronic kidney disease: Qualifiers: Chronic kidney disease stage: unspecified stage Qualified Code(s): N 18.9 - Chronic kidney disease, unspecified (5) Leukocytosis: Plan #fall --mechanical fall --head CT negative --PT consult #rhabdo --ivf, repeat labs #weakness --PT OT consult #Afib --rate controlled -continue amiodaraone, bb #HTN --monitor vitals #TERESA on CKD --creat close to baseline --repeat labs Hypothyroidism --check TSH, resume home thyroid replacement The patient is being admitted for observation with telemetry. Will gentle hydrate patient. Physical therapy consultation. Monitor serial labs. Chronic home medications including medication for atrial fibrillation, hypothyroidism, hypertension resume. Further recommendations pending clinical results and clinical course. Attestations 2 Medical Necessity Statement*: The patient is being admitted for observation status Coding Level of Care Code 16454 Diagnoses Fall W19.XXXA Rhabdomyolysis M62.82 Chronic atrial fibrillation I48.91 Chronic kidney disease N18.9 Chronic kidney disease stage: unspecified stage Leukocytosis D72.829
--- NOTE | 2023-11-08 17:20 | ECG_ITS ---
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 Measurements Intervals [place] Rate: 80 P: 0 MT: 0 QRS: 47 QRSD: 94 T: 63 QT: 429 QTc: 495 Interpretive Statements Sinus rhythm with occasional PACs VOLTAGE CRITERIA FOR LVH [MEETS CRITERIA IN ONE OF: R(aVL), S(V1), R(V5), R(V5/V6)+S(V1)] MODERATE ST DEPRESSION [0.05+ mV ST DEPRESSION] Compared to ECG 11/08/2023 14:30:28 ST (T wave) deviation still present Electronically Signed On 11-09-2023 0:13:20 CDT by Kayode Francois M.D. [email or web address] [email or web address].Georgina Goodman/store/[id number]
[2023-11-08] MEDS: hyDRALAzine 20 mg/mL INJ 1 mL 10 MG IVP ×2 (17:25→20:19)
[2023-11-09] VITALS (7 sets, daily range): BP systolic 154–197; BP diastolic 54–71; PULSE 62–72; RESP 14–18; TEMP 36.7–37; O2SAT 92–95
[2023-11-09] MEDS: hyDRALAzine 20 mg/mL INJ 1 mL 10 MG IVP ×2 (03:58→08:36)
[2023-11-09 06:13] LABS: Basophils % 0.2 %; Eosinophils % 0.1 %; Hematocrit 30.1 % (36-47); Lymphocytes # 1.2 10^3/uL (0.8-4.8); Lymphocytes % 8.3 %; Mean Corpuscular HGB Conc 32.9 g/dL (30-55); Mean Corpuscular Hemoglobin 28.9 pg (27-33); Mean Corpuscular Volume 87.8 fl (85-98); Mean Platelet Volume 11.8 fL (7.4-10.4); Monocytes # 0.8 10^3/uL (0.2-0.9); Monocytes % 5.3 %; Neutrophils # 12.54 10^3/uL (1.8-7.7); Neutrophils % 85.6 %; Nucleated Red Blood Cells % 0 %; Platelet Count 227 10^3/cmm (157-399); Red Blood Count 3.43 10^6/uL (3.85-5.65); Red Cell Distribution Width 14.1 % (12.1-15.1); White Blood Count 14.64 10^3/uL (3.29-11.43)
[2023-11-09 06:36] LABS: Alanine Aminotransferase 15 U/L (0-33); Albumin Level 3.2 g/dL (3.5-5.2); Alkaline Phosphatase 53 U/L (35-105); Anion Gap 15.9 (5-19); Aspartate Amino Transferase 45 U/L (0-32); Blood Urea Nitrogen 40 mg/dL (8-23); Calcium 9.1 mg/dL (8.5-10.5); Carbon Dioxide 21 mmol/L (22-29); Chloride 108 mmol/L (98-107); Creatinine Clr Calc Pharmacy 16.9476; Globulin 3.2 g/dL (1.3-4.6); Glucose 123 mg/dL (65-115); Magnesium 1.4 mg/dL (1.7-2.3); Osmolality Calculated 303 mOsm/kg (285-295); Phosphorus 3.5 mg/dL (2.5-4.5); Potassium 3.9 mmol/L (3.5-5.1); Sodium 141 mmol/L (136-145); Total Bilirubin 0.2 mg/dL (0.15-1.2); Total Protein 6.4 g/dL (6.6-8.7)
[2023-11-09 06:59] LABS: Creatine Phosphokinase 912 U/L (26-192)
[2023-11-09] MEDS: docusate sodium 100 mg Capsule PO ×2 (09:09→17:17)
[2023-11-09] MEDS: amiodarone 200 mg Tablet 100 MG PO (09:09)
[2023-11-09] MEDS: levothyroxine 50 mcg Tablet PO (09:09)
[2023-11-09] MEDS: polyethylene glycol 3350 Pkt 17 gm PO (09:09)
[2023-11-09] MEDS: metoprolol tartrate 50 mg Tablet PO (09:09)
[2023-11-09] MEDS: famotidine 20 mg Tablet PO (09:10)
[2023-11-09] MEDS: aspirin 81 mg EC Tablet PO (09:10)
--- NOTE | 2023-11-09 09:20 | USCV_ITS ---
Rebecca Duke Age: 88 Gender: F : 1935 Exam Date: 11/09/2023 10:17 Ordering Phys: Anita Burleson MD Technologist: Exam Location: [facility] [place] Indication: sob htn BP: 124 / 73 HR: 71 Rhythm: Sinus Technical Quality: Adequate MEASUREMENTS (Male / Female) Normal Values 2D ECHO LV Diastolic Diameter PLAX 3.9 cm 4.2 - 5.9 / 3.9 - 5.3 cm IVS Diastolic Thickness 1.4 cm 0.6 - 1.0 / 0.6 - 0.9 cm IVS Systolic Thickness 1.9 cm LVPW Diastolic Thickness 1.3 cm 0.6 - 1.0 / 0.6 - 0.9 cm LVPW Systolic Thickness 1.7 cm LVOT Diameter 2.0 cm LV Ejection Fraction 2D Teich 64.0 % LV Ejection Fraction MOD 2C 73.4 % LV Ejection Fraction 2C AL 74.2 % LA Diameter 3.5 cm RA Systolic Volume 4C AL 48.0 ml RA Systolic Volume 4C MOD 50.3 ml LA Sys Volume AL 119.1 cm cubed LA Sys Volume Index AL 84.7 cm cubed/m squared Aorta at Sinotubular Diameter 2.2 cm M-MODE LA Ao Ratio MM 1.5 AV Cusp Separation MM 1.8 cm DOPPLER AV Peak Velocity 227.0 cm/s LVOT Peak Velocity 108.0 cm/s AV Area Cont Eq vti 2.2 cm squared AV Area Cont Eq pk 1.5 cm squared MV Peak Velocity 127.0 cm/s MV Area PHT 2.4 cm squared Mitral E to A Ratio 0.9 TV Peak Velocity 378.0 cm/s TR Peak Velocity 397.0 cm/s TR Peak Gradient 63.0 mmHg TV Peak E Velocity 95.0 cm/s Right Atrial Pressure 3.0 mmHg Pulmonary Artery Systolic Pressu 66.0 mmHg PV Peak Velocity 91.0 cm/s FINDINGS Left Ventricle Left ventricle is normal in size. LV systolic function is normal with EF of 60-65%. No regional wall motion abnormalities. Left ventricular hypertrophy noted. Grade 1 diastolic dysfunction. Right Ventricle Normal in size and function Right Atrium Normal in size Left Atrium Severely dilated. Mitral Valve Mild mitral annular calcification. Mild mitral regurgitation. Aortic Valve Aortic valve is thickened. Mild aortic regurgitation. Tricuspid Valve Mild tricuspid regurgitation. RVSP is 55-60mmHg. This is consistent with moderate pulmonary hypertension. Pulmonic Valve Trace pulmonic regurgitation. Pericardium Normal Aorta Normal in size IVC Appears to be normal CONCLUSIONS LV systolic function is normal with EF of 60-65%. Left ventricular hypertrophy noted. Grade 1 diastolic dysfunction. Severely dilated left atrium Mild mitral regurgitation. Mild aortic regurgitation. Mild tricuspid regurgitation. Moderate pulmonary hypertension. Trace pulmonic regurgitation Compared to prior echocardiogram from 2017, patient now has mild aortic regurgitation and pulmonary hypertension has progressed and is moderate now Prieto Lozano MD (Electronically Signed) Final Date: 09 Nov 2023 13:00 S
[2023-11-09 10:20] LABS: Troponin T (5th) Once 56 ng/L (0-10)
[2023-11-09] MEDS: lactated ringers 1,000 ML 75 ML IV (10:37)
[2023-11-09] MEDS: amlodipine 10 mg Tablet PO (10:37)
--- NOTE | 2023-11-09 14:44 | ECG_ITS ---
[facility] Test Date: 2023-11-09 Pat Name: Rebecca Duke Department: Room: 278 Gender: Female Or Nurse Manager: : 1935 Requested By: Anita Burleson Order Number: [id number] Suzanne MD: Prieto Lozano M.D. Measurements Intervals [place] Rate: 68 P: 149 MI: 159 QRS: 140 QRSD: 89 T: 149 QT: 439 QTc: 470 Interpretive Statements SINUS RHYTHM WITH OCCASIONAL SUPRAVENTRICULAR PREMATURE COMPLEXES LEFT POSTERIOR FASCICULAR BLOCK [QRS AXIS > 109, INFERIOR Q] LEFT VENTRICULAR HYPERTROPHY AND ST-T CHANGE [VOLTAGE CRITERIA PLUS ST/T ABNORMALITY] Compared to ECG 11/08/2023 17:20:20 Left posterior fascicular block now present ST (T wave) deviation still present Electronically Signed On 11-09-2023 17:11:59 CDT by Prieto Lozano M.D. [email or web address].[email or web address].[employer]/store/[id number]
--- NOTE | 2023-11-09 15:30 | P.PN_ITS ---
Subjective 2 Subjective: 88-year-old female presents with weaknes s, fall, hypertension. She was noted to have abnormal UA on admission. She continues to report some weakness. She denies any chest pain or difficulty breathing. Blood pressure still elevated but better Vitals/I&O/Wt Last Vital Signs Temp 98.6 F 11/09/23 11:34 Pulse 62 11/09/23 11:34 Resp 14 11/09/23 11:34 BP 162/60 11/09/23 11:34 Pulse Ox 93 11/09/23 11:34 O2 Del Method Room Air 11/09/23 11:34 11/09/23 11/09/23 11/09/23 06:59 14:59 22:59 Intake Total 60 / 60 Output Total 350 / 350 Balance -290 / -290 Weight last 48 hrs Weight 98 lb 1 oz Weight 117 lb Weight 117 lb Physical Exam 2 Const: COMMON NORMALS: no acute distress and alert O RIENTATION/CONSCIOUSNESS: Yes oriented to person, Yes oriented to place and Yes oriented to time Neck/C-Spine: COMMON NORMALS: full ROM, supple and no JVD Resp: COMMON NORMALS: normal respiratory effort and No retractions Cardio: COMMON NORMALS: no JVD, regular rate and regular rhythm RATE: r egular rate RHYTHM: regular rhythm GI: COMMON NORMALS: Normal to inspection, nondistended, normoactive bowel sounds present and Soft to palpation PALPATION: Yes Soft to palpation Neuro: SENSORIUM/ORIENTATION: Yes alert, Yes oriented to person, Yes oriented to place and Yes oriented to time Data 11/09/23 05:53 11/09/23 05:53 Micro: Microbiology 11/08/23 11:51 Urine Culture - Preliminary Urine,Clean Catch Gram Negative Rods A&P Assessment and plan (1) Fall: (2) Rhabdomyolysis: (3) Atrial fibrillation: (4) Chronic kidney disease: Qualifiers: Chronic kidney disease stage: unspecified stage Qualified Code(s): N 18.9 - Chronic kidney disease, unspecified (5) Leukocytosis: Plan #fall --mechanical fall --head CT negative --PT consult #rhabdo --ivf, repeat labs -- IV fluids were briefly held due to hypertension. Her CK is noted to be elevated. Will continue to monitor this #weakness --PT OT consult #Afib --rate controlled -continue amiodaraone, bb #HTN --monitor vitals #TERESA on CKD --creat close to baseline --repeat labs Hypothyroidism --check TSH, resume home thyroid replacement The patient is being admitted for observation with telemetry. Will gentle hydrate patient. Physical therapy consultation. Monitor serial labs. Chronic home medications including medication for atrial fibrillation, hypothyroidism, hypertension resume. Further recommendations pending clinical results and clinical course. Attestations 2 Medical Necessity Statement*: Rebecca Duke requires ongoing inpatient care for antibiotics physical therapy Coding Level of Care Code 25632 Diagnoses Fall W19.XXXA Rhabdomyolysis M62.82 Chronic atrial fibrillation I48.91 Chronic kidney disease N18.9 Chronic kidney disease stage: unspecified stage Leukocytosis D72.829
--- NOTE | 2023-11-09 19:55 | PC.NURSE ---
Patient will not answer orientation questions. Patient also will not meter and service line inspector my hands when asked, so unable to a complete neuro assessment. Patient is alert and awake. Patient states that she is cold. [place] provided to patient. When attempting to assess pupils, patient squeezes her eyes shut to where I am not able to assess them. Was able to assess left eye by raising eye lid with my finger, however patient will not allow me to assess right eye. Left eye WNL and showed PERRLA.
[2023-11-10] VITALS (7 sets, daily range): BP systolic 152–190; BP diastolic 57–72; PULSE 63–79; RESP 17–21; TEMP 36.4–36.9; O2SAT 91–94
[2023-11-10] MEDS: lactated ringers 1,000 ML 75 ML IV ×2 (00:18→14:19)
[2023-11-10 05:55] LABS: Basophils # 0.1 10^3/uL (0.0-0.1); Basophils % 0.5 %; Eosinophils # 0.3 10^3/uL (0.0-0.8); Eosinophils % 2.4 %; Hematocrit 28.6 % (36-47); Lymphocytes # 1.3 10^3/uL (0.8-4.8); Lymphocytes % 11.8 %; Mean Corpuscular HGB Conc 31.5 g/dL (30-55); Mean Corpuscular Hemoglobin 28.9 pg (27-33); Mean Platelet Volume 11.6 fL (7.4-10.4); Monocytes # 0.7 10^3/uL (0.2-0.9); Monocytes % 6.7 %; Neutrophils # 8.58 10^3/uL (1.8-7.7); Neutrophils % 78.1 %; Nucleated Red Blood Cells % 0 %; Platelet Count 192 10^3/cmm (157-399); Red Blood Count 3.11 10^6/uL (3.85-5.65); Red Cell Distribution Width 14.6 % (12.1-15.1)
[2023-11-10 06:18] LABS: Alanine Aminotransferase 15 U/L (0-33); Albumin Level 2.8 g/dL (3.5-5.2); Alkaline Phosphatase 44 U/L (35-105); Anion Gap 12.6 (5-19); Aspartate Amino Transferase 46 U/L (0-32); Blood Urea Nitrogen 43 mg/dL (8-23); Calcium 8.5 mg/dL (8.5-10.5); Carbon Dioxide 21 mmol/L (22-29); Chloride 108 mmol/L (98-107); Globulin 2.7 g/dL (1.3-4.6); Glucose 95 mg/dL (65-115); Magnesium 1.6 mg/dL (1.7-2.3); Osmolality Calculated 297 mOsm/kg (285-295); Phosphorus 2.9 mg/dL (2.5-4.5); Potassium 3.6 mmol/L (3.5-5.1); Sodium 138 mmol/L (136-145); Total Bilirubin 0.2 mg/dL (0.15-1.2); Total Protein 5.5 g/dL (6.6-8.7)
[2023-11-10 06:23] LABS: Creatinine Clr Calc Pharmacy 14.3147
[2023-11-10 06:24] LABS: Thyroid Stimulating Hormone 3.09 uIU/mL (0.27-4.20)
[2023-11-10 06:48] LABS: Creatine Phosphokinase 592 U/L (26-192)
[2023-11-10] MEDS: polyethylene glycol 3350 Pkt 17 gm PO (08:09)
[2023-11-10] MEDS: levothyroxine 50 mcg Tablet PO (08:10)
[2023-11-10] MEDS: famotidine 20 mg Tablet PO ×2 (08:10→17:57)
[2023-11-10] MEDS: docusate sodium 100 mg Capsule PO ×2 (08:10→17:57)
[2023-11-10] MEDS: aspirin 81 mg EC Tablet PO (08:10)
[2023-11-10] MEDS: amiodarone 200 mg Tablet 100 MG PO (08:10)
[2023-11-10] MEDS: metoprolol tartrate 50 mg Tablet PO ×2 (08:10→17:56)
[2023-11-10] MEDS: amlodipine 10 mg Tablet PO (08:10)
[2023-11-10] MEDS: cefTRIAXone 1,000 MG in sodium chloride 0.9% (plus) 50 ML 100 MG IV (14:18)
--- NOTE | 2023-11-10 14:56 | PC.SOCIAL ---
IMM Update pg 2 of IMM updated and signed w/ patient. Copy left @ bedside and copy dated, initialed and placed in chart.
--- NOTE | 2023-11-10 15:24 | PM.PN ---
Subjective Subjective: Patient seen to be doing little bit better today. She claims that she fell on the floor while trying to get out of bed and laid there for several hours. She is really not complaining of any fevers or chills. No chest pain or shortness of breath. Really denies any urinary symptoms. Medications: Reviewed: Yes Medication Review Details: Current Medications Amiodarone HCl (Amiodarone 200 Mg Tablet) 100 mg PO DAILY [facility] Last Admin: 11/10/23 08:10 Dose: 100 mg Amlodipine Besylate (Amlodipine 10 Mg Tablet) 10 mg PO DAILY [facility] Last Admin: 11/10/23 08:10 Dose: 10 mg Aspirin (Aspirin 81 Mg Ec Tablet) 81 mg PO DAILY [facility] Last Admin: 11/10/23 08:10 Dose: 81 mg Docusate Sodium (Docusate Sodium 100 Mg Capsule) 100 mg PO BID [facility] Last Admin: 11/10/23 08:10 Dose: 100 mg Famotidine (Famotidine 20 Mg Tablet) 20 mg PO DAILY [facility] Last Admin: 11/10/23 08:10 Dose: 20 mg Hydralazine HCl (Hydralazine 20 Mg/Ml Inj 1 Ml) 10 mg IVP Q4H PRN PRN Reason: HYPERTENSION Last Admin: 11/09/23 08:36 Dose: 10 mg Lactated Ringer's (Lactated Ringers) 1,000 mls @ 75 mls/hr IV .[id number] [facility] Last Admin: 11/10/23 14:19 Dose: 75 mls/hr Levothyroxine Sodium (Levothyroxine 50 Mcg Tablet) 50 mcg PO DAILY [facility] Last Admin: 11/10/23 08:10 Dose: 50 mcg Metoprolol Tartrate (Metoprolol Tartrate 50 Mg Tablet) 50 mg PO BID [facility] Last Admin: 11/10/23 08:10 Dose: 50 mg Ondansetron HCl (Ondansetron 2 Mg/Ml Sdv 2 Ml) 4 mg IVP Q6H PRN PRN Reason: NAUSEA AND VOMITING Polyethylene Glycol (Polyethylene Glycol 3350 Pkt 17 Gm) 17 gm PO DAILY [facility] Last Admin: 11/10/23 08:09 Dose: 17 gm Vitals/I&O/Wt Last Vital Signs Temp 97.8 F 11/10/23 12:00 Pulse 64 11/10/23 12:00 Resp 18 11/10/23 12:00 BP 190/61 11/10/23 12:00 Pulse Ox 92 11/10/23 12:00 O2 Del Method Room Air 11/10/23 12:00 11/10/23 11/10/23 11/10/23 06:59 14:59 22:59 Intake Total 1000 / 1420 1000 / 1050 50 / 1050 Output Total 325 / 675 Balance 675 / 745 1000 / 1050 50 / 1050 Weight last 48 hrs Weight 96 lb 6.4 oz Weight 98 lb 1 oz Weight 117 lb Physical Exam Narrative: General: No acute distress, Alert. Well nourished. Heart: Regular rate and rhythm. No murmurs, rubs or gallops. Normal capillary refill. Lungs: Clear to auscultation. No wheezes, rhonchi or rales. Abdomen: Positive bowel sounds. Non-tender, non-distended. No hepatosplenomegaly. No gaurding. no CVA pain Extremities: No clubbing, cyanosis, or edema. Negative Melissa's Urinary Catheter Management: Morales: Cath Placed During This Visit: yes Reason for Continuing Indwelling Catheter: Acute Urinary Retention or Obstruction Urinary Catheter Date of Insertion: 11/09/23 Urinary Catheter Time of Insertion: 19:30 Data 11/10/23 05:39 11/10/23 05:39 Micro: Microbiology 11/08/23 11:51 Urine Culture - Final Urine,Clean Catch Klebsiella pneumoniae A&P Assessment and plan (1) Atrial fibrillation: Overall seems to be doing okay. Heart rates been in the 60s and 70s. (2) CKD (chronic kidney disease) stage 1, GFR 90 ml/min or greater: (3) TERESA (acute kidney injury): Made worse by some rhabdomyolysis. Creatinine is 2.0. This is actually up a little bit from the day prior. Will go ahead and increase her fluids up to 125 cc an hour. Monitor closely for fluid overload. Recheck her labs tomorrow. (4) Anemia: Concerned about this getting worse. Her hemoglobin was 11.3 when she first came in and now is down to 9.0. No obvious cause for this. Probably place her on some Pepcid for GI prophylaxis. Continue her iron but increase it to twice daily dosing. Probably do a Hemoccult stool as well. (5) Leukocytosis: Her white blood cell count was a bit high when she came in. Actually little better today. Urine culture is growing out Klebsiella though. Presumable UTI. We will go ahead and start Rocephin IV for that. (6) Rhabdomyolysis: Continue with IV fluids as above. (7) Generalized weakness: Physical therapy to assess and treat. Attestations Medical Necessity Statement*: Patient has acute medical problems including rhabdomyolysis and anemia that require continued inpatient IV treatments and monitoring. Coding Level of Care Code Acute Code for [facility] Fwd Diagnoses Chronic atrial fibrillation I48.91 CKD (chronic kidney disease) stage 1, GFR 90 ml/min or greater N18.1 TERESA (acute kidney injury) N17.9 Anemia D64.9 Leukocytosis D72.829 Rhabdomyolysis M62.82 Generalized weakness R53.1
[2023-11-10] MEDS: ferrous sulfate EC 325 mg Tablet PO (17:56)
[2023-11-11] VITALS: BP 161/57; PULSE 67; RESP 18; TEMP 36.9; O2SAT 91
[2023-11-11 04:00] VITALS: BP 190/76; PULSE 73; RESP 18; TEMP 36.8; O2SAT 90
[2023-11-11] MEDS: lactated ringers 1,000 ML 125 ML IV (04:30)
[2023-11-11] MEDS: hyDRALAzine 20 mg/mL INJ 1 mL 10 MG IVP (04:31)
[2023-11-11 06:18] LABS: Basophils # 0.1 10^3/uL (0.0-0.1); Basophils % 0.4 %; Eosinophils # 0.5 10^3/uL (0.0-0.8); Eosinophils % 4.1 %; Hematocrit 32.6 % (36-47); Lymphocytes # 1.2 10^3/uL (0.8-4.8); Lymphocytes % 10.1 %; Mean Corpuscular HGB Conc 31.3 g/dL (30-55); Mean Corpuscular Hemoglobin 28.5 pg (27-33); Mean Corpuscular Volume 91.1 fl (85-98); Mean Platelet Volume 11.8 fL (7.4-10.4); Monocytes # 0.8 10^3/uL (0.2-0.9); Monocytes % 7.1 %; Neutrophils # 9.01 10^3/uL (1.8-7.7); Neutrophils % 77.8 %; Nucleated Red Blood Cells % 0 %; Platelet Count 207 10^3/cmm (157-399); Red Blood Count 3.58 10^6/uL (3.85-5.65); Red Cell Distribution Width 14.5 % (12.1-15.1); White Blood Count 11.58 10^3/uL (3.29-11.43)
[2023-11-11 06:44] LABS: Alanine Aminotransferase 17 U/L (0-33); Alkaline Phosphatase 52 U/L (35-105); Anion Gap 15.7 (5-19); Aspartate Amino Transferase 42 U/L (0-32); Blood Urea Nitrogen 40 mg/dL (8-23); Calcium 9.1 mg/dL (8.5-10.5); Carbon Dioxide 22 mmol/L (22-29); Chloride 106 mmol/L (98-107); Creatinine Clr Calc Pharmacy 13.9432; Globulin 3.2 g/dL (1.3-4.6); Glucose 99 mg/dL (65-115); Magnesium 1.6 mg/dL (1.7-2.3); Osmolality Calculated 300 mOsm/kg (285-295); Phosphorus 2.3 mg/dL (2.5-4.5); Potassium 3.7 mmol/L (3.5-5.1); Sodium 140 mmol/L (136-145); Total Bilirubin 0.3 mg/dL (0.15-1.2); Total Protein 6.2 g/dL (6.6-8.7)
[2023-11-11 07:50] VITALS: BP 187/60; PULSE 82; RESP 18; TEMP 36.4; O2SAT 92
--- NOTE | 2023-11-11 07:51 | PC.NURSE ---
RN notified of elevated BP
[2023-11-11] MEDS: aspirin 81 mg EC Tablet PO (09:11)
[2023-11-11] MEDS: docusate sodium 100 mg Capsule PO (09:11)
[2023-11-11] MEDS: amlodipine 10 mg Tablet PO (09:12)
[2023-11-11] MEDS: metoprolol tartrate 50 mg Tablet PO (09:12)
[2023-11-11] MEDS: famotidine 20 mg Tablet PO (09:12)
[2023-11-11] MEDS: ferrous sulfate EC 325 mg Tablet PO (09:12)
[2023-11-11] MEDS: levothyroxine 50 mcg Tablet PO (09:12)
[2023-11-11] MEDS: amiodarone 200 mg Tablet 100 MG PO (09:12)
[2023-11-11] MEDS: polyethylene glycol 3350 Pkt 17 gm PO (09:16)
[2023-11-11] MEDS: lisinopril 20 mg Tablet PO (11:03)
[2023-11-11 12:00] VITALS: BP 141/60; PULSE 80; RESP 18; TEMP 36.4; O2SAT 92
--- NOTE | 2023-11-11 12:57 | PM.DCS ---
Discharge Providers Date of Admission: 11/08/23 15:33 Date of Discharge: November 11, 2023 Attending Provider at Admission: Anita Burleson MD Attending Provider at Discharge: Pancho Tim MD Primary Care Provider: Jalyn Salas MD Diagnoses at Discharge Discharge Diagnosis (1) Atrial fibrillation: Status: Acute (2) CKD (chronic kidney disease) stage 1, GFR 90 ml/min or greater: Status: Acute (3) TERESA (acute kidney injury): Status: Acute (4) Anemia: Status: Acute (5) Leukocytosis: Status: Acute (6) Rhabdomyolysis: Status: Acute (7) Generalized weakness: Status: Acute (8) Urinary tract infection: Status: Acute Qualifiers: Hematuria presence: with hematuria Urinary tract infection type: site unspecified Qualified Code(s): N39.0 - Urinary tract infection, site not specified; R31.9 - Hematuria, unspecified Reason for Visit Reason for Visit: Found on Floor Brief History: Is an 88-year-old female with past medical history of A-fib, CVA, hypertension, the patient hyperlipidemia, chronic kidney disease who presented to the emergency department after falling out of bed. She had fallen out of bed overnight and was found to have rhabdomyolysis with acute kidney injury and a UTI in the ER and was subsequently admitted. She was started on IV fluids and Rocephin. Hospital Course Hospital Course The patient responded well to treatments and overall is doing much better. She was treated with Rocephin for 2 days and will be discharged with cephalexin as an outpatient. The patient's creatinine was elevated but is back to Baseline at 1.8 upon discharge. Her blood pressures were significantly elevated in the 180-200 systolic range. These have improved Now with medication adjustments and the addition of amlodipine 10 mg daily. Overall the patient is feeling well. She does show some signs of baseline confusion and weakness and will need physical therapy and close monitoring. She will be discharged to the [facility] [place]. Physical Exam Narrative: General: Alert, interactive, hard of hearing. In no acute distress. Mouth: No erythema or tonsilar enlargement. No masses noted. Neck: No thyromegaly. No lymphadenopathy. Heart: Regular rate and rhythm. No murmurs. Lungs: Clear to auscultation bilaterally. No wheezes, crackles or ronchi. Abdomen: Soft, non-tender. No hepatosplenomegaly. Extremities: Trace pitting edema. Urinary Catheter Management: Morales: Cath Placed During This Visit: yes Reason for Continuing Indwelling Catheter: Acute Urinary Retention or Obstruction Urinary Catheter Date of Insertion: 11/09/23 Urinary Catheter Time of Insertion: 19:30 Discharge Data Studies Completed and Pending Completed Studies During Hospitalization Category Date Time Status CT abdomen pelvis wo con [id number] Stat Cat Scan 11/08/23 14:[address] head wo con* [id number] Stat Cat Scan 11/08/23 11:01 Completed XR chest 1V portable [id number] Stat Exams 11/08/23 11:01 Completed CV. echo complete* [id number] Routine Ultrasound 11/09/23 09:20 Completed US renal BI* [id number] Routine Ultrasound 11/08/23 16:16 Completed Pending at discharge Category Date Time Status Immunochemical Fecal OCB Routine Lab 11/10/23 15:35 Uncollected Radiology Impressions Chest X-Ray 11/08/23 11:01 IMPRESSION: No acute findings. Head CT 11/08/23 11:01 IMPRESSION: 1. No acute intracranial hemorrhage or edema. 2. Moderate atrophy with small vessel ischemic disease. Large remote LEFT temporal lobe infarct with encephalomalacia. 3. Mild progression of small vessel ischemic disease. Abdomen/Pelvis CT 11/08/23 14:46 IMPRESSION: 1. Multiple small nodules in visualized right lower lobe and right middle lobe, not fully evaluated. Recommend dedicated chest CT. 2. Left medial diaphragmatic hernia which includes majority of stomach and nondistended colon. 3. Several lower pole probable cysts in the right kidney with heterogeneous increased density component centrally. Recommend ultrasound. 4. Moderate nonacute T12 compression fracture with mild canal stenosis related to retropulsed bone. Renal Ultrasound 11/08/23 16:16 IMPRESSION: 1. Echogenic kidneys which may be a sign of medical renal disease. 2. Multiple cysts without concerning features. Laboratory Results WBC 11.58 10^3/uL (3.29-11.43) H 11/11/23 05:35 RBC 3.58 10^6/uL (3.85-5.65) L 11/11/23 05:35 Hgb 10.20 g/dL (11.27-16.99) L 11/11/23 05:35 Hct 32.6 % (36-47) L 11/11/23 05:35 MCV 91.1 fl (85-98) 11/11/23 05:35 MCH 28.5 pg (27-33) 11/11/23 05:35 MCHC 31.3 g/dL (30-55) 11/11/23 05:35 RDW 14.5 % (12.1-15.1) 11/11/23 05:35 Plt Count 207 10^3/cmm (157-399) 11/11/23 05:35 MPV 11.8 fL (7.4-10.4) H 11/11/23 05:35 Neut % (Auto) 77.8 % 11/11/23 05:35 Lymph % (Auto) 10.1 % 11/11/23 05:35 [place] % (Auto) 7.1 % 11/11/23 05:35 Eos % (Auto) 4.1 % 11/11/23 05:35 Baso % (Auto) 0.4 % 11/11/23 05:35 Neut # (Auto) 9.01 10^3/uL (1.8-7.7) H 11/11/23 05:35 Lymph # (Auto) 1.2 10^3/uL (0.8-4.8) 11/11/23 05:35 [place] # (Auto) 0.8 10^3/uL (0.2-0.9) 11/11/23 05:35 Eos # (Auto) 0.5 10^3/uL (0.0-0.8) 11/11/23 05:35 Baso # (Auto) 0.1 10^3/uL (0.0-0.1) 11/11/23 05:35 Nucleated RBC % (auto) 0 % 11/11/23 05:35 Nucleated RBCs # 0.0 /100WBC 11/11/23 05:35 Sodium 140 mmol/L (136-145) 11/11/23 05:35 Potassium 3.7 mmol/L (3.5-5.1) 11/11/23 05:35 Chloride 106 mmol/L (98-107) 11/11/23 05:35 Carbon Dioxide 22 mmol/L (22-29) 11/11/23 05:35 Anion Gap 15.7 (5-19) 11/11/23 05:35 BUN 40 mg/dL (8-23) H 11/11/23 05:35 Creatinine 1.8 mg/dL (0.5-0.9) H 11/11/23 05:35 GFR Calculation Not Reportable 11/11/23 05:35 Glucose 99 mg/dL (65-115) 11/11/23 05:35 Calculated Osmolality 300 mOsm/kg (285-295) H 11/11/23 05:35 Calcium 9.1 mg/dL (8.5-10.5) 11/11/23 05:35 Phosphorus 2.3 mg/dL (2.5-4.5) L 11/11/23 05:35 Magnesium 1.6 mg/dL (1.7-2.3) L 11/11/23 05:35 Total Bilirubin 0.3 mg/dL (0.15-1.2) 11/11/23 05:35 AST 42 U/L (0-32) H 11/11/23 05:35 ALT 17 U/L (0-33) 11/11/23 05:35 Alkaline Phosphatase 52 U/L (35-105) 11/11/23 05:35 Creatine Kinase 592 U/L (26-192) H* 11/10/23 05:39 Troponin T 5th Gen ng/L 56 ng/L (0-10) H 11/09/23 09:44 Troponin T Baseline 42 ng/L (0-10) H 11/08/23 09:05 Troponin T 120 Minute 40.00 ng/L (0-10) H 11/08/23 11:17 Delta Troponin T -2.00 ABS# (0-10) L 11/08/23 11:17 Troponin T Hi Sens 6Hr 41.90 ng/L (0-10) H 11/08/23 15:12 Troponin T Hi Sens 6Hr Delta -0.10 ng/L (0-12) L 11/08/23 15:12 Total Protein 6.2 g/dL (6.6-8.7) L 11/11/23 05:35 Albumin 3.0 g/dL (3.5-5.2) L 11/11/23 05:35 Globulin 3.2 g/dL (1.3-4.6) 11/11/23 05:35 TSH 3.09 uIU/mL (0.27-4.20) 11/10/23 05:39 Urine Color Yellow (Yellow) 11/08/23 11:51 Urine Appearance Cloudy (CLEAR) A 11/08/23 11:51 Urine pH 5 (5-7) 11/08/23 11:51 Ur Specific [place] 1.020 (1.005-1.030) 11/08/23 11:51 Urine Protein 3+ (Negative) H 11/08/23 11:51 Urine Glucose (UA) Norm (Normal) 11/08/23 11:51 Urine Ketones Negative (Negative) 11/08/23 11:51 Urine Blood 3+ (Negative) H 11/08/23 11:51 Urine Nitrate Negative (Negative) 11/08/23 11:51 Urine Bilirubin Neg (Negative) 11/08/23 11:51 Urine Urobilinogen Norm mg/dL (Negative) 11/08/23 11:51 Ur Leukocyte Esterase 2+ (Negative) H 11/08/23 11:51 Urine RBC 5-10 /hpf (0-2) H 11/08/23 11:51 Urine WBC >100 /hpf (0-5) H 11/08/23 11:51 Ur Squamous Epith Cells 0-4 /hpf (0-5) H 11/08/23 11:51 Amorphous Sediment Not Reportable 11/08/23 11:51 Urine Bacteria 4+ /hpf (NONE) H 11/08/23 11:51 Urine Mucus Trace /hpf 11/08/23 11:51 Vitals Last Vital Signs Temp 97.5 F L 11/11/23 07:50 Pulse 82 11/11/23 07:50 Resp 18 11/11/23 07:50 BP 187/60 11/11/23 07:50 Pulse Ox 92 11/11/23 07:50 O2 Del Method Room Air 11/11/23 07:50 Discharge Plan Discharge Patient Disposition: Xfer SNF Condition: Stable Prescriptions: New amoxicillin-pot clavulanate 875-125 mg tablet 1 tab PO BID Qty: 10 0RF amlodipine 10 mg Tablet 10 mg PO DAILY Qty: 30 0RF cephalexin 500 mg capsule 500 mg PO TID 7 Days Qty: 21 0RF Continued metoprolol tartrate 50 mg tablet 50 mg PO BID cholecalciferol (vitamin D3) 125 mcg (5,000 unit) capsule 125 mcg PO DAILY levothyroxine 50 mcg tablet 50 mcg PO DAILY amiodarone 200 mg tablet 100 mg PO DAILY ferrous sulfate 325 mg (65 mg iron) tablet 325 mg PO .every other day lisinopril 20 mg tablet 20 mg PO DAILY vitamin B complex Tablet 1 tab PO DAILY aspirin 81 mg capsule 81 mg PO DAILY Qty: 30 0RF Discharge Orders: Discharge Order (Routine); Ordered 11/11/23 Ordered By: Pancho Tim Referrals: [facility] [Outside] Jalyn Salas MD [Primary Care Provider] - Discharge Diet: Regular Discharge Activity: Increase activity as tolerated and As per PT/OT instructions Patient Instructions: Opioid Safety Discharge Attestations Time Spent in Discharge Care*: greater than 30 min Status at Discharge: Cognitive status at discharge: cognitively intact, Behavioral status at discharge: cooperative, Quality Metrics Clinical Quality Measures [ No reported AMI, CVA or VTE this stay] Coding Level of Care Code Acute Code for Chg Fwd Diagnoses Chronic atrial fibrillation I48.91 CKD (chronic kidney disease) stage 1, GFR 90 ml/min or greater N18.1 TERESA (acute kidney injury) N17.9 Anemia D64.9 Leukocytosis D72.829 Rhabdomyolysis M62.82 Generalized weakness R53.1 Urinary tract infection N39.0; R31.9 Hematuria presence: with hematuria Urinary tract infection type: site unspecified
[2023-11-11 14:47] VITALS: BP 141/60; PULSE 80; RESP 18; TEMP 36.4; O2SAT 92
== END 2023-11-11 14:48 | disposition skilled nursing facility (03) | DRG 683 ==
LOC: ER 13:32 → MEDSURG 17:33
PROVIDERS: Admitting Provider Internal Medicine; Emergency Provider Emergency Medicine; PCP Internal Medicine; Visit Provider Family Medicine
DX: N17.9 Acute kidney failure, unspecified (principal); I48.20 Chronic atrial fibrillation, unspecified; M62.82 Rhabdomyolysis; W06.XXXA Fall from bed, initial encounter; I12.9 Hypertensive chronic kidney disease with stage 1 through stage 4 chronic kidney disease, or unspecified chronic kidney disease; N18.1 Chronic kidney disease, stage 1; E78.5 Hyperlipidemia, unspecified; Z96.643 Presence of artificial hip joint, bilateral; E03.9 Hypothyroidism, unspecified; D63.1 Anemia in chronic kidney disease; R31.9 Hematuria, unspecified; Z86.73 Personal history of transient ischemic attack (TIA), and cerebral infarction without residual deficits
CPT/HCPCS: 36415; 51702; 51798; 70450; 71045; 74176; 76770; 80053; 81001; 82550; 83735; 84100; 84443; 84484; 85025; 87077; 87086; 87186; 93005; 93306; 96365; 96375; 97110; 97116; 97162; 97530; 99285; J0360; J0696; J3490; J7040; J7120

== ENCOUNTER → 2023-11-27 12:59 | Outpatient (BNVA) | payer MEDICARE, OTHER, SELFPAY | PROVIDERS: PCP Internal Medicine; Visit Provider Nurse Practitioner Family | DX: C44.329 Squamous cell carcinoma of skin of other parts of face (principal); L57.0 Actinic keratosis; L81.4 Other melanin hyperpigmentation; L57.8 Other skin changes due to chronic exposure to nonionizing radiation | CPT/HCPCS: 99214 ==

== ENCOUNTER 2023-12-25 11:50 | Outpatient (CLI) | payer MEDICARE, OTHER, SELFPAY ==
--- NOTE | 2023-12-25 12:06 | XR_ITS ---
WS: [id number] Left hip, AP and frog-leg views, AP pelvis, 12/25/2023 Clinical Data: PAIN IN LEFT HIP/S/P FALL/HX OF PREVIOUS TOTAL HIP REPLACEME Comparison: Pelvis and right hip, 02/23/2023 Findings: No dislocations are seen. The bilateral hip arthroplasties remain in good position. No loosening or periprosthetic fractures are seen.. The soft tissues are not remarkable. The adjacent pelvis is darin l. XR/XR hip LT 2-3V wo/w pel* [id number] Impression: 1. Stable bilateral hip arthroplasties. 2. Negative for new pelvic or hip fractures.
== END 2023-12-25 11:51 | disposition home or self-care (01) ==
LOC: RAD 11:52
PROVIDERS: PCP Internal Medicine; Visit Provider Internal Medicine
DX: M25.552 Pain in left hip (principal); Z96.643 Presence of artificial hip joint, bilateral
CPT/HCPCS: 73502

== ENCOUNTER 2024-01-14 21:11 | Emergency (ER) | payer MEDICARE, OTHER, SELFPAY ==
[2024-01-14 21:18] VITALS: BP 198/78; PULSE 55; RESP 16; TEMP 36.8; O2SAT 94; BMI 19.9
[2024-01-14 21:27] VITALS: BP 198/78; PULSE 53; RESP 16; O2SAT 93
--- NOTE | 2024-01-14 21:52 | CTR_ITS ---
PROCEDURE INFORMATION: Exam: CT Head Without Contrast Exam date and time: 01/14/2024 10:04 PM Age: 88 years old Clinical indication: Injury or trauma; Blunt trauma (contusions or hematomas); Patient HX: EMS arrival for fall. Patient fell getting out of bed and struck head on floor. Anticoagulated. History of CVA. ; Additional info: Fall head inj TECHNIQUE: Imaging protocol: Computed tomography of the head without contrast. Radiation optimization: All CT scans at this facility use at least one of these dose optimization techniques: automated exposure control; mA and/or kV adjustment per patient size (includes targeted exams where dose is matched to clinical indication); or iterative reconstruction. COMPARISON: CT head wo con* [id number] 11/08/2023 11:27 AM RADIATION DOSE METRICS: Total DLP (mGy-cm): 1031.39 FINDINGS: Brain: No acute intracranial hemorrhage or territorial infarction. Chronic infarct involving the left insula and parietal operculum. Lacunar infarct within the right basal ganglia versus prominent perivascular space. Moderate microangiopathy and global cerebral volume loss. Cerebral ventricles: No ventriculomegaly. Paranasal sinuses: Visualized sinuses are unremarkable. No fluid levels. Mastoid air cells: Visualized mastoid air cells are well aerated. Bones: Unremarkable. No acute fracture. Soft tissues: Unremarkable. CT/CT head wo con* [id number] IMPRESSION: 1. No acute intracranial hemorrhage or territorial infarction. 2. Chronic infarct involving the left insula and parietal operculum. Lacunar infarct within the right basal ganglia versus prominent perivascular space. 3. Moderate microangiopathy and global cerebral volume loss.
[2024-01-14 22:38] LABS: Basophils # 0.1 10^3/uL (0.0-0.1); Basophils % 0.8 %; Eosinophils # 0.3 10^3/uL (0.0-0.8); Eosinophils % 3.2 %; Hematocrit 30.3 % (36-47); Lymphocytes # 1.8 10^3/uL (0.8-4.8); Lymphocytes % 22.9 %; Mean Corpuscular HGB Conc 32.7 g/dL (30-55); Mean Corpuscular Hemoglobin 28.7 pg (27-33); Mean Corpuscular Volume 87.8 fl (85-98); Mean Platelet Volume 11.6 fL (7.4-10.4); Monocytes # 0.6 10^3/uL (0.2-0.9); Monocytes % 7.6 %; Neutrophils # 5.11 10^3/uL (1.8-7.7); Neutrophils % 65.1 %; Nucleated Red Blood Cells % 0 %; Platelet Count 223 10^3/cmm (157-399); Red Blood Count 3.45 10^6/uL (3.85-5.65); Red Cell Distribution Width 14.6 % (12.1-15.1); White Blood Count 7.85 10^3/uL (3.29-11.43)
[2024-01-14] MEDS: sodium chloride 0.9% 500 ML IV (22:48)
[2024-01-14] MEDS: enalaprilat 2.5 mg/2 mL SDV 1.25 MG IVP (22:48)
[2024-01-14 22:52] VITALS: BP 216/71; PULSE 52; RESP 16; O2SAT 95
[2024-01-14 22:52] LABS: Alanine Aminotransferase 11 U/L (0-33); Albumin Level 3.2 g/dL (3.5-5.2); Alkaline Phosphatase 58 U/L (35-105); Anion Gap 15.1 (5-19); Aspartate Amino Transferase 19 U/L (0-32); Blood Urea Nitrogen 37 mg/dL (8-23); Calcium 9.1 mg/dL (8.5-10.5); Carbon Dioxide 24 mmol/L (22-29); Chloride 108 mmol/L (98-107); Creatinine Clr Calc Pharmacy 17.6505; Globulin 2.9 g/dL (1.3-4.6); Glucose 98 mg/dL (65-115); INR 1.02 (0.8-1.2); Osmolality Calculated 305 mOsm/kg (285-295); Potassium 4.1 mmol/L (3.5-5.1); Sodium 143 mmol/L (136-145); Total Bilirubin 0.2 mg/dL (0.15-1.2); Total Protein 6.1 g/dL (6.6-8.7)
--- NOTE | 2024-01-14 23:16 | ED_ITS ---
HPI - Fall 2 General: Chief Complaint: Fall Stated Complaint: FALL Time Seen by Provider: 01/14/24 21:29 History of Present Illness: 88-year-old female lives at home. She p resents after a fall. She had gotten up to use the restroom, fell, striking her head. She fell on her left side, and it was thought that she may have injured her left hip, but she is in no pain currently. She remembers the fall. She denies shortness of breath or chest pain. She denies recent fever. She is awake and talking. 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 of left hip Family History Father CAD (coronary artery disease) Sister CAD (coronary artery disease) Diabetes Brother Diabetes Other Hypertension Social History Smoking and tobacco/nicotine status: never used tobacco/nicotine Alcohol intake: never Substance/Drug Use: never Marital status: / Physical Exam 2 Const: COMMON NORMALS: no acute distress GENERAL APPEARANCE: cooperative and frail appearing; not ill appearing HENMT: COMMON NORMALS: normocephalic, atraumatic and Normal external nose present HEAD & SCALP: normocephalic and atraumatic FACE & SINUS: normal facial exam and face symmetric NOSE: Normal external nose present Eye: COMMON NORMALS: Equal, round and reactive pupils present and EOMs intact bilaterally PUPIL: Yes Equal, round and reactive pupils present Neck/C-Spine: GENERAL: Yes trachea midline CERVICAL SPINE: No pain with cervical ROM and No Cervical spine tenderness Chest: CHEST: Yes Symmetrical chest wall rise Resp: COMMON NORMALS: normal respiratory effort, No retractions, No use of accessory muscles and clear to auscultation bilaterally AUSCULTATION: clear to auscultation bilaterally Cardio: COMMON NORMALS: regular rate and regular rhythm RATE: regular rate RHYTHM: regular rhythm GI: COMMON NORMALS: Normal to inspection, nondistended, normoactive bowel sounds present PALPATION: No Tenderness to palpation present (GI) Extremity: NARRATIVE EXTREMITY EXAM: Exam reveals symmetric movements of upper and lower extremities bilaterally. No pain on movement of upper or lower extremities, both active and passive range of motion. Pulses are intact. Neuro: JORDON COMA SCALE: document GCS findings [place] coma scale eye opening: Spontaneous Jordon coma scale verbal response: Orientated Jordon coma scale motor response: Obey commands Jordon coma scale total score: 15 S ENSORY EXAM: Yes extremities (intact) Psych: COMMON NORMALS: speech normal SPEECH: Yes normal speech Skin: COMMON NORMALS: no rashes or lesions noted GENERAL SKIN EXAM: no rashes or lesions noted Course 2 Vital Signs: Vital signs: Vital Signs Temperature 98.3 F 01/14/24 21:18 Pulse Rate 54 L 01/15/24 00:21 Respiratory Rate 16 01/15/24 00:21 Blood Pressure 198/98 01/15/24 00:21 Pulse Oximetry 97 01/15/24 00:21 Oxygen Delivery Me thod Room Air 01/15/24 00:21 MDM - Fall Medical Decision Making Patient has been hypertensive here, she was given IV medication for this. Hemoglobin is 10 which is stable. White blood cell count is 7.8. Creatinine is 1.7 which is stable. Head CT shows no acute findings. Other laboratory not remarkable. The patient has walked using a walker in the emergency department without problems. She will be allowed discharge. Lab Data 01/14/24 22:03 01/14/24 22:[address] 01/14/24 21:52 IMPRESSION: 1. No acute intracranial hemorrhage or territorial infarction. 2. Chronic infarct involving the left insula and parietal operculum. Lacunar infarct within the right basal ganglia versus prominent perivascular space. 3. Moderate microangiopathy and global cerebral volume loss. Laboratory Results WBC 7.85 10^3/uL (3.29-11.43) 01/14/24 22:03 RBC 3.45 10^6/uL (3.85-5.65) L 01/14/24 22:03 Hgb 9.90 g/dL (11.27-16.99) L 01/14/24 22:03 Hct 30.3 % (36-47) L 01/14/24 22:03 MCV 87.8 fl (85-98) 01/14/24 22:03 MCH 28.7 pg (27-33) 01/14/24 22:03 MCHC 32.7 g/dL (30-55) 01/14/24 22:03 RDW 14.6 % (12.1-15.1) 01/14/24 22:03 Plt Count 223 10^3/cmm (157-399) 01/14/24 22:03 MPV 11.6 fL (7.4-10.4) H 01/14/24 22:03 Neut % (Auto) 65.1 % 01/14/24 22:03 Lymph % (Auto) 22.9 % 01/14/24 22:03 [place] % (Auto) 7.6 % 01/14/24 22:03 Eos % (Auto) 3.2 % 01/14/24 22:03 Baso % (Auto) 0.8 % 01/14/24 22:03 Neut # (Auto) 5.11 10^3/uL (1.8-7.7) 01/14/24 22:03 Lymph # (Auto) 1.8 10^3/uL (0.8-4.8) 01/14/24 22:03 [place] # (Auto) 0.6 10^3/uL (0.2-0.9) 01/14/24 22:03 Eos # (Auto) 0.3 10^3/uL (0.0-0.8) 01/14/24 22:03 Baso # (Auto) 0.1 10^3/uL (0.0-0.1) 01/14/24 22:03 Nucleated RBC % (auto) 0 % 01/14/24 22:03 Nucleated RBCs # 0.0 /100WBC 01/14/24 22:03 PT 13.70 SECONDS (12.1-14.9) 01/14/24 22:03 INR 1.02 (0.8-1.2) 01/14/24 22:03 APTT 25.0 SECONDS (23.9-36.7) 01/14/24 22:03 Sodium 143 mmol/L (136-145) 07/28/24 22:03 Potassium 4.1 mmol/L (3.5-5.1) 01/14/24 22:03 Chloride 108 mmol/L (98-107) H 01/14/24 22:03 Carbon Dioxide 24 mmol/L (22-29) 01/14/24 22:03 Anion Gap 15.1 (5-19) 01/14/24 22:03 BUN 37 mg/dL (8-23) H 01/14/24 22:03 Creatinine 1.7 mg/dL (0.5-0.9) H 01/14/24 22:03 GFR Calculation Not Reportable 01/14/24 22:03 Glucose 98 mg/dL (65-115) 01/14/24 22:03 Calculated Osmolality 305 mOsm/kg (285-295) H 01/14/24 22:03 Calcium 9.1 mg/dL (8.5-10.5) 01/14/24 22:03 Total Bilirubin 0.2 mg/dL (0.15-1.2) 01/14/24 22:03 AST 19 U/L (0-32) 01/14/24 22:03 ALT 11 U/L (0-33) 01/14/24 22:03 Alkaline Phosphatase 58 U/L (35-105) 01/14/24 22:03 Total Protein 6.1 g/dL (6.6-8.7) L 01/14/24 22:03 Albumin 3.2 g/dL (3.5-5.2) L 01/14/24 22:03 Globulin 2.9 g/dL (1.3-4.6) 01/14/24 22:03 All radiology interpretation(s) finalized by discharge Discharge Plan Discharge Patient Disposition: Home Clinical Impression: Fall Condition: Stable Prescriptions: No Action metoprolol tartrate 50 mg tablet 50 mg PO BID cholecalciferol (vitamin D3) 125 mcg (5,000 unit) capsule 125 mcg PO DAILY levothyroxine 50 mcg tablet 50 mcg PO DAILY amiodarone 200 mg tablet 100 mg PO DAILY ferrous sulfate 325 mg (65 mg iron) tablet 325 mg PO .every other day lisinopril 20 mg tablet 20 mg PO DAILY vitamin B complex Tablet 1 tab PO DAILY amoxicillin-pot clavulanate 875-125 mg tablet 1 tab PO BID Qty: 10 0RF amlodipine 10 mg Tablet 10 mg PO DAILY Qty: 30 0RF aspirin 81 mg capsule 81 mg PO DAILY Qty: 30 0RF Discharge Orders: Discharge ED (Routine); Ordered 01/15/24 Ordered By: Davis Carlson Referrals: Jalyn Salas MD [Primary Care Provider] - Patient Instructions: Opioid Safety, Pain Management Coding Level of Care Code ED Technical Documentation Specialist for Jose Mckeon
[2024-01-15 00:21] VITALS: BP 198/98; PULSE 54; RESP 16; O2SAT 97
[2024-01-15 01:01] LABS: Bacteria Urine 2+ /hpf; Fine Granular Casts Urine 0-4 /lpf; Hyaline Casts Urine 0-4 /lpf; Mucus Urine 1+ /hpf; RBC Urine 0-4 /hpf (0-2); WBC Urine 25-40 /hpf (0-5)
[2024-01-15 01:02] LABS: Add Urine Culture? Yes
[2024-01-15 03:58] VITALS: BP 186/66; PULSE 68; RESP 16; O2SAT 96
[2024-01-17 14:20] LABS: Urine Appearance Cloudy (CLEAR); Urine Color Yellow (Yellow)
[2024-01-17 14:21] LABS: Add Urine Microscopic? YES; Bilirubin Urine Neg (Negative); Blood Urine Trace (Negative); Glucose Urine UA Norm (Normal); Ketones Urine Negative (Negative); Leukocyte Esterase Urine 2+ (Negative); Nitrate Urine Positive (Negative); Protein Urine 3+ (Negative); Specific Gravity, Urine 1.015 (1.005-1.030); Urobilinogen Urine Neg (Negative); pH Urine 5 (5-7)
== END 2024-01-15 03:47 | disposition home or self-care (01) ==
PROVIDERS: Emergency Provider Emergency Medicine; PCP Internal Medicine
DX: Z03.89 Encounter for observation for other suspected diseases and conditions ruled out (principal); Z79.82 Long term (current) use of aspirin; E78.5 Hyperlipidemia, unspecified; Z86.73 Personal history of transient ischemic attack (TIA), and cerebral infarction without residual deficits; I12.9 Hypertensive chronic kidney disease with stage 1 through stage 4 chronic kidney disease, or unspecified chronic kidney disease; N18.1 Chronic kidney disease, stage 1
CPT/HCPCS: 36415; 70450; 80053; 81001; 85025; 85610; 85730; 87077; 87086; 87186; 96374; 99285; J7040

== ENCOUNTER → 2024-03-27 13:26 | Outpatient (BNVA) | payer MEDICARE, OTHER, SELFPAY | PROVIDERS: PCP Internal Medicine; Visit Provider Nurse Practitioner Family | DX: L57.8 Other skin changes due to chronic exposure to nonionizing radiation (principal); Z85.828 Personal history of other malignant neoplasm of skin | CPT/HCPCS: 99213 ==

== ENCOUNTER 2024-04-16 18:11 | Emergency (ER) | payer MEDICARE, OTHER, SELFPAY ==
--- NOTE | 2024-04-16 18:15 | CTR_ITS ---
PROCEDURE INFORMATION: Exam: CT Head Without Contrast Exam date and time: 04/16/2024 7:29 PM Age: 88 years old Clinical indication: Injury or trauma; Fall TECHNIQUE: Imaging protocol: Computed tomography of the head without contrast. Radiation optimization: All CT scans at this facility use at least one of these dose optimization techniques: automated exposure control; mA and/or kV adjustment per patient size (includes targeted exams where dose is matched to clinical indication); or iterative reconstruction. COMPARISON: CT head wo con* [id number] 01/14/2024 10:04 PM RADIATION DOSE METRICS: Total DLP (mGy-cm): 1068.38 FINDINGS: Brain: Mild diffuse cerebral atrophy is noted. There is prominent chronic periventricular white matter ischemic change. There is no evidence of mass effect, hemorrhage or infarct. An old lacunar infarct involves the left external capsule. A smaller old lacunar infarct involves the right internal capsule. Cerebral ventricles: No ventriculomegaly. No midline shift. Paranasal sinuses: Visualized sinuses are unremarkable. No fluid levels. Mastoid air cells: Visualized mastoid air cells are well aerated. Bones: Unremarkable. No acute fracture. Soft tissues: Unremarkable. CT/CT head wo con* [id number] IMPRESSION: 1. No acute findings. 2. Cerebral atrophy is noted along with chronic ischemic changes.
--- NOTE | 2024-04-16 18:15 | CTR_ITS ---
PROCEDURE INFORMATION: Exam: CT Lumbar Spine Without Contrast Exam date and time: 04/16/2024 7:33 PM Age: 88 years old Clinical indication: Injury or trauma; Fall; Other: Lbp; Additional info: Low back pain TECHNIQUE: Imaging protocol: Computed tomography of the lumbar spine without contrast. Radiation optimization: All CT scans at this facility use at least one of these dose optimization techniques: automated exposure control; mA and/or kV adjustment per patient size (includes targeted exams where dose is matched to clinical indication); or iterative reconstruction. COMPARISON: CT abdomen pelvis wo con [id number] 11/08/2023 3:31 PM RADIATION DOSE METRICS: Total DLP (mGy-cm): 434.94 FINDINGS: Bones/joints: T12 vertebral body chronic compression fracture with minimal retropulsion of bony fragments and minimal spinal canal narrowing. L1-L2: L1-L2 broad-based disc bulge with mild spinal canal and bilateral foraminal narrowing. L2-L3: No significant disc bulge or herniation. No severe spinal canal stenosis. No significant neural foraminal narrowing. L3-L4: L3-L4 broad-based disc bulge with moderate bilateral foraminal narrowing. L4-L5: L4-L5 broad-based disc bulge with moderate to severe spinal canal narrowing. L5-S1: L5-S1 productive degenerative changes with moderate to severe bilateral foraminal narrowing. Soft tissues: Unremarkable. Other findings: Small hiatal hernia. Minimal diverticulosis diverticulitis. CT/CT lumbar spine wo con* [id number] IMPRESSION: 1. T12 vertebral body chronic compression fracture with minimal retropulsion of bony fragments and minimal spinal canal narrowing. 2. Small hiatal hernia. 3. Minimal diverticulosis diverticulitis. 4. L1-L2 broad-based disc bulge with mild spinal canal and bilateral foraminal narrowing. 5. L3-L4 broad-based disc bulge with moderate bilateral foraminal narrowing. 6. L4-L5 broad-based disc bulge with moderate to severe spinal canal narrowing. 7. L5-S1 productive degenerative changes with moderate to severe bilateral foraminal narrowing.
--- NOTE | 2024-04-16 18:15 | XRR_ITS ---
PROCEDURE INFORMATION: Exam: XR Left Hip Exam date and time: 04/16/2024 6:37 PM Age: 88 years old Clinical indication: Injury or trauma; Fall; Blunt trauma (contusions or hematomas); Left; Hip and pelvic region; Prior surgery; Surgery date: 6+ months; Surgery type: Asael hip; Additional info: Fall, left hip pain. With pelvis TECHNIQUE: Imaging protocol: Radiologic exam of the left hip. Views: 2 or 3 views hip with pelvis when performed. COMPARISON: CR XR hip LT 2-3V wo/w pel* [id number] 12/25/2023 12:18 PM FINDINGS: Bones/joints: A left hip prosthesis is well seated and well aligned. No fracture noted. Soft tissues: Unremarkable. XR/XR hip LT 2-3V wo/w pel* [id number] IMPRESSION: No acute findings.
[2024-04-16 18:21] VITALS: BP 198/89; PULSE 62; RESP 18; TEMP 36.4; O2SAT 92; BMI 17.4
[2024-04-16 18:30] VITALS: BP 198/89; PULSE 62; RESP 18; TEMP 36.4; O2SAT 92
--- NOTE | 2024-04-16 18:39 | W.ED.FALL ---
HPI - Fall General: Chief Complaint: Fall Stated Complaint: Fall Time Seen by Provider: 04/16/24 18:13 History of Present Illness: 88-year-old female who presents to the emergency room after a fall. She presents by ambulance. She had lost her balance with her walker and fell down to the left side and was wrapped up in her walker. She does not think she hit her head. No loss of consciousness. No altered mental status. She is having pain in her left hip primarily in her low back. She has had bilateral hip replacements. Related Data Home Medications Medication Instructions Recorded Confirmed cholecalciferol (vitamin D3) 125 125 mcg PO DAILY 12/18/19 11/08/23 mcg (5,000 unit) capsule levothyroxine 50 mcg tablet 50 mcg PO DAILY 12/18/19 11/08/23 metoprolol tartrate 50 mg tablet 50 mg PO BID 12/18/19 11/08/23 amiodarone 200 mg tablet 100 mg PO DAILY 07/15/20 11/08/23 ferrous sulfate 325 mg (65 mg 325 mg PO .every other day 07/15/22 11/08/23 iron) tablet lisinopril 20 mg tablet 20 mg PO DAILY 11/08/23 11/08/23 vitamin B complex 1 tab PO DAILY 11/08/23 11/08/23 Previous Rx's Medication Instructions Recorded aspirin 81 mg capsule 81 mg PO DAILY #30 caps 02/22/22 amoxicillin 875 mg-potassium 1 tab PO BID #10 tabs 11/10/23 clavulanate 125 mg tablet amlodipine 10 mg tablet 10 mg PO DAILY #30 tabs 11/11/23 Allergies Allergy/AdvReac Type Severity Reaction Status Date / Time Nitrofuran Analogues Allergy Unknown Unknown Verified 11/08/23 08:17 Review of Systems Narrative: Constitutional symptoms: Negative except as documented in HPI. Skin symptoms: Negative except as documented in HPI. Eye symptoms: Negative except as documented in HPI. ENMT symptoms: Negative except as documented in HPI. Respiratory symptoms: Negative except as documented in HPI. Cardiovascular symptoms: Negative except as documented in HPI. Gastrointestinal symptoms: Negative except as documented in HPI. Genitourinary symptoms: Negative except as documented in HPI. Musculoskeletal symptoms: Negative except as documented in HPI. Neurologic symptoms: Negative except as documented in HPI. Psychiatric symptoms: Negative except as documented in HPI. Endocrine symptoms: Negative except as documented in HPI. PFSH ED PFSH: Medical History Displaced fracture of right femoral neck Closed subtrochanteric fracture of right femur Hyperlipidemia HTN (hypertension) CVA (cerebral vascular accident) Atrial fibrillation CKD (chronic kidney disease) stage 1, GFR 90 ml/min or greater Anticoagulant long-term use Surgical History History of hemiarthroplasty of right hip History of hemiarthroplasty of left hip Family History Father CAD (coronary artery disease) Sister CAD (coronary artery disease) Diabetes Brother Diabetes Other Hypertension Social History Smoking and tobacco/nicotine status: never used tobacco/nicotine Alcohol intake: never Substance/Drug Use: never Marital status: / Physical Exam Narrative: EXAM NARRATIVE: General: Alert, no acute distress. Skin: Warm, dry. Head: Normocephalic, atraumatic. Neck: Supple, trachea midline. Eye: Extraocular movements are intact. Ears, nose, mouth and throat: mucosa moist. Cardiovascular: Regular, Normal peripheral perfusion. Respiratory: Lungs are clear to auscultation, respirations are non-labored, breath sounds are equal, Symmetrical chest wall expansion. Gastrointestinal: Soft, Nontender, Non distended Musculoskeletal: Normal ROM, no deformity. Neurological: Alert and oriented, No focal neurological deficit observed. Psychiatric: Cooperative, appropriate mood & affect. Course Vital Signs: Vital signs: Vital Signs Temperature 97.6 F 04/16/24 18:30 Pulse Rate 62 04/16/24 18:30 Respiratory Rate 18 04/16/24 18:30 Blood Pressure 198/89 04/16/24 18:30 Pulse Oximetry 92 04/16/24 18:30 Oxygen Delivery Me thod Room Air 04/16/24 18:30 MDM - Fall Medical Decision Making CT head: No acute intracranial process. no intracranial hemorrhage, no evidence of infarct. no evidence of acute fracture.This was reviewed and interpreted by myself the ER physician. CT of the lumbar spine: There is extensive degenerative changes and disc bulges but nothing appears acute. This was reviewed and interpreted by myself the emergency room physician. I also reviewed the radiology report. X-ray of left hip: No acute findings. This was reviewed and interpreted by myself the emergency room physician. I also reviewed the radiology report. Assessment and plan: Fall Low back strain Hip injury ? Tylenol in the emergency room - Discharged home - Discussed plan with patient. Answered any questions. - Evaluation and treatment of this problem were appropriate in the emergency setting. Lab Data Radiology Impressions Head CT 04/16/24 18:15 IMPRESSION: 1. No acute findings. 2. Cerebral atrophy is noted along with chronic ischemic changes. Hip/Pelvis X-Ray 04/16/24 18:15 IMPRESSION: No acute findings. Lumbar Spine CT 04/16/24 18:15 IMPRESSION: 1. T12 vertebral body chronic compression fracture with minimal retropulsion of bony fragments and minimal spinal canal narrowing. 2. Small hiatal hernia. 3. Minimal diverticulosis diverticulitis. 4. L1-L2 broad-based disc bulge with mild spinal canal and bilateral foraminal narrowing. 5. L3-L4 broad-based disc bulge with moderate bilateral foraminal narrowing. 6. L4-L5 broad-based disc bulge with moderate to severe spinal canal narrowing. 7. L5-S1 productive degenerative changes with moderate to severe bilateral foraminal narrowing. All radiology interpretation(s) finalized by discharge Discharge Plan Discharge Patient Disposition: Home Clinical Impression: Lumbosacral strain, Fall Condition: Stable Prescriptions: No Action metoprolol tartrate 50 mg tablet 50 mg PO BID cholecalciferol (vitamin D3) 125 mcg (5,000 unit) capsule 125 mcg PO DAILY levothyroxine 50 mcg tablet 50 mcg PO DAILY amiodarone 200 mg tablet 100 mg PO DAILY ferrous sulfate 325 mg (65 mg iron) tablet 325 mg PO .every other day lisinopril 20 mg tablet 20 mg PO DAILY vitamin B complex Tablet 1 tab PO DAILY amoxicillin-pot clavulanate 875-125 mg tablet 1 tab PO BID Qty: 10 0RF amlodipine 10 mg Tablet 10 mg PO DAILY Qty: 30 0RF aspirin 81 mg capsule 81 mg PO DAILY Qty: 30 0RF Discharge Orders: Discharge ED (Routine); Ordered 04/16/24 Ordered By: Lucero Larry Referrals: Jalyn Salas MD [Primary Care Provider] - Seng Savage DO [Physician] - 4-7 days (Call for an appoint with Dr. Savage or your primary care physician if back pain persists) Discharge Diet: Usual diet Discharge Activity: Increase activity as tolerated Patient Instructions: Fall Prevention for Older Adults (ED), Opioid Safety, Pain Management Activity Restrictions/Additional Instructions: Thank you for choosing [facility] for your healthcare needs today. Please realize this is an emergency room and that we are providing you with a medical screening exam and this may not be complete and all inclusive of all the testing and or work up that you may need to determine your ailment or severity of your illness. You have been screened and evaluated and felt safe for discharge. Health conditions do change or evolve sometimes and as such it is important that you follow up with your Primary Doctor to be re checked, 3-5 days is a general good time frame for follow up. You are always welcome to return to the ED for re assessment if your symptoms are worsening or you have new concerns Coding Level of Care Code ED [employer] for Jose Mckeon
[2024-04-16 22:30] VITALS: BP 200/89; PULSE 97; O2SAT 94
== END 2024-04-16 22:31 | disposition home or self-care (01) ==
PROVIDERS: Emergency Provider Emergency Medicine; PCP Internal Medicine
DX: S33.9XXA Sprain of unspecified parts of lumbar spine and pelvis, initial encounter (principal); W19.XXXA Unspecified fall, initial encounter; Z79.82 Long term (current) use of aspirin; I12.9 Hypertensive chronic kidney disease with stage 1 through stage 4 chronic kidney disease, or unspecified chronic kidney disease; N18.1 Chronic kidney disease, stage 1; Z79.01 Long term (current) use of anticoagulants
CPT/HCPCS: 70450; 72131; 73502; 99284